=== PATIENT | female | born 2000 | race Two or more races ===

== ENCOUNTER 2020-05-27 00:48 | Emergency (ER) | payer OTHER, SELFPAY ==
[2020-05-27 00:53] VITALS: BP 111/77; PULSE 105; RESP 16; TEMP 37.2; O2SAT 98; BMI 17.1
--- NOTE | 2020-05-27 01:25 | PC.NURSE ---
Pt ambulating from the waiting room into room 6. Pt is CAOx4, speaking full sentences, states she was doing dishes when a glass shattered in her hand, cutting her 5th finger on her right hand. Approx 1 inch lac noted to finger, lac cleaned and bandaged, bleeding controlled. Awaiting primary MD richards.
--- NOTE | 2020-05-27 01:39 | ED.WOUNDLAC ---
HPI - Wound/Laceration General Chief Complaint: Wound/Laceration Stated Complaint: Lac Time Seen by Provider: 05/27/20 01:36 Source: patient Mode of arrival: ambulatory Limitations: no limitations History of Present Illness HPI narrative: Patient comes to emergency room complaining of a laceration to her 5th finger on the dorsal aspect. Patient states she was washing dishes and 1 of the glasses broke lacerating The dorsum of her pinky finger Related Data Allergies Allergy/AdvReac Type Severity Reaction Status Date / Time No Known Allergies Allergy Unverified 04/03/20 16:46 [No Known Allergies*] Review of Systems Review of Systems: Constitutional : No Weight loss, No Fever, No Chills, No Night Sweats, No Fatigue, No Malaise ENT/Mouth : No Hearing loss, No Ear Pain, No Nasal Congestion, No Sinus Pain, No Hoarseness, No sore throat, No Rhinorrhea, No Swallowing Difficulty Eyes: No Eye Pain, No Swelling, No Redness, No Foreign Body, No Discharge, No Vision Changes Cardiovascular : No Chest Pain, No SOB, No Dyspnea on Exertion, No Orthopnea, No Edema, No Palpitations Respiratory : No Cough, No Sputum, No Wheezing, No Smoke Exposure, No Dyspnea Gastrointestinal : No Nausea, No Vomiting, No Diarrhea, No Constipation, No abdominal Pain, No Hematochezia, No Melena Genitourinary : no irregular bleeding, No Dysuria, No Urinary Frequency, No Hematuria, No Urinary Incontinence, No Urgency, No Flank Pain, No Urinary Flow Changes, No Hesitancy Musculoskeletal : No joint pain, No Myalgias, No Joint Swelling Skin : laceration to the right 5th digit dorsal aspect Neuro : No Weakness, No Numbness, No Paresthesias, No Loss of Consciousness, No Dizziness, No Headache Psych : No Anxiety/Panic, No Depression, No SI/HI/AH/VH, No Social Issues, Heme/Lymph: No Bruising, No Bleeding,No Lymphadenopathy Endocrine : No Polyuria, No Polydipsia, No Temperature Intolerance [facility] Past Medical History Medical History No known health problems Social History Social History Advance Directives: No Advance Directives Information Provided: No Physical Exam Vital Signs: Vital Signs: Last Vital Signs Temp 98.9 F 05/27/20 00:53 Pulse 105 H 05/27/20 00:53 Resp 16 05/27/20 00:53 BP 111/77 05/27/20 00:53 Pulse Ox 98 05/27/20 00:53 Body Mass Index 17.1 Appearance: Alert. Oriented X3. No acute distress. Eyes: Pupils equal, round and reactive to light. ENT: Pharynx normal. Neck: Normal inspection. Neck supple. No lymph nodes noted. No crepitus CVS: Normal heart rate and rhythm. Pulses normal. Normal S1 and S2 Respiratory: No respiratory distress. Breath sounds normal. No Wheezing. No rales Abdomen: Soft and nontender. No rigidity. No distention. good BS x4 Skin: 3 cm laceration to the dorsal aspect of the right 5th digit, bleeding controlled, no foreign body seen Extremities: No lower extremity edema. No lower extremity edema. No Lacerations. No Rash. Patient is able to flex and extend all fingers in her right hand including the 5th digit Neuro: Oriented X 3. No motor deficit. No sensory deficit. Moving all extermities. No slurred speech. Course Course Course Narrative: Patient got stitches, patient tolerated well the procedure. Procedures Laceration Laceration 1: Site: other ( dorsal lateral aspect of 5th digit right hand) Side (If applicable): right Size (cm): 4 Description: linear and flap Depth: simple, single layer Local Anesthetic: lidocaine 2% Amount of anesthesia used (mL): 4 Pre-repair: wound explored and irrigated extensively Size (cm): 5-0 Number of sutures: 6 Technique: simple, interrupted Discharge Plan Discharge Clinical Impression: Laceration Patient Disposition: Home, Self-Care Instructions: Finger Laceration (ED) Additional Instructions: her stitches need to be removed in 7-10 days. You may wash your hands, keep them dry. Diffuse see any signs of infection such as redness, pus drainage, significant pain, fever, please return to the emergency room. for pain you may use ibuprofen or Tylenol. Please follow-up with your primary care physician tomorrow. If you have any worsening or new symptoms, please return to the emergency room or call 911 Stand Alone Forms: Work/School Release
[2020-05-27] MEDS: Lidocaine HCl 2 % MPF 5 ML VIAL 10 ML SUBCUT (01:48)
--- NOTE | 2020-05-27 02:01 | PC.NURSE ---
at bedside to suture lac.
[2020-05-27 02:16] VITALS: BP 104/65; PULSE 109; RESP 16; O2SAT 97
--- NOTE | 2020-05-27 02:16 | PC.NURSE ---
MD at bedside, 7 sutures applied to 5th finger on right hand. Bleeding controlled, wound bandaged. Pt aware of plan to DC home. VSS.
== END 2020-05-27 02:30 | disposition home or self-care (01) ==
PROVIDERS: Emergency Provider Emergency Medicine; PCP Nurse Practitioner Pediatrics
DX: S61.216A Laceration without foreign body of right little finger without damage to nail, initial encounter (principal); M79.644 Pain in right finger(s); W25.XXXA Contact with sharp glass, initial encounter; Y93.9 Activity, unspecified; Y92.000 Kitchen of unspecified non-institutional (private) residence as the place of occurrence of the external cause; Y99.9 Unspecified external cause status
CPT/HCPCS: 12002; 99283; 99284

== ENCOUNTER 2020-09-15 15:00 | Outpatient (RCR) | payer OTHER, SELFPAY | END 2020-10-28 11:44 | disposition other institution (70) | LOC: HO.OT 15:00 | PROVIDERS: PCP Nurse Practitioner Pediatrics; Visit Provider Nurse Practitioner Pediatrics | DX: M25.541 Pain in joints of right hand (principal) | CPT/HCPCS: 97110; 97140; 97165 ==

== ENCOUNTER 2020-11-03 08:27 | Inpatient (IN) | payer OTHER, SELFPAY ==
[2020-11-03] VITALS (7 sets, daily range): BP systolic 90–118; BP diastolic 52–74; PULSE 64–112; RESP 16–20; TEMP 36.6–37.3; O2SAT 97–99; BMI 17.1
--- NOTE | 2020-11-03 | EEG_ITS ---
This is a 16-channel digital EEG with an EKG lead. The patient is awake during the tracing. Background EEG rhythm is 10 to 14 hertz, 5 to 30 microvolt posteriorly, lower amplitude fast anteriorly. Intermittently occasional sharp wave was noted, localized to left parietal area. Photic stimulation did not produce any significant abnormality. Hyperventilation was not performed. Cardiac lead did not reveal any significant abnormality. IMPRESSION: Mildly abnormal EEG suggestive of left hemispheric irritability. MD RICKIE Pierson/BRANDNO / [id number]
--- NOTE | ~2020-11-03 | XR_ITS ---
EXAMINATION: XR CHEST CLINICAL INFORMATION: New onset of seizures. Rule out pneumonia. COMPARISON: None TECHNIQUE: Frontal view of the chest was obtained. FINDINGS: The lungs are well-expanded and clear. The heart size and pulmonary vascularity is normal. No gross bony abnormality seen. XR/XR chest 1V IMPRESSION: Unremarkable chest exam.
--- NOTE | ~2020-11-03 | CT_ITS ---
EXAMINATION: CT HEAD WITHOUT CONTRAST CLINICAL INFORMATION: New onset seizure. COMPARISON: None TECHNIQUE: Contiguous axial imaging was performed from the skull base to vertex without intravenous administration of contrast. Additional 2-D coronal and sagittal reformatted images are generated on the CT workstation and uploaded to PACS. This CT examination was performed using dose optimization techniques as appropriate, variously including the following: *Automated exposure control *Adjustment of mA and/or kV according to patient size (this includes techniques or standardized protocols for targeted exams where dose is matched to indication/reason for exam; i.e. extremities or head) *Use of iterative reconstruction technique DLP: 601 mGy-cm FINDINGS: There is no intracranial hemorrhage, hematoma, or extra-axial fluid collection. The ventricles are normal in size. There is no hydrocephalus, edema, or mass effect. The thomas-white matter differentiation appears symmetric. There is no visible acute territorial infarct or mass lesion. The calvarium appears intact. There is no pneumocephalus or orbital emphysema. The visualized sinuses and middle ears and mastoid air cells show no significant mucosal thickening. There are no air-fluid levels. CT/CT head/brain wo con IMPRESSION: Normal noncontrast CT head.
--- NOTE | ~2020-11-03 | MR_ITS ---
MR BRAIN WITHOUT AND WITH CONTRAST CLINICAL INFORMATION: Seizure. COMPARISON: Head CT performed earlier the same day. TECHNIQUE: Multiplanar, multisequence MRI of the brain was obtained before and after the intravenous administration of 4.5 mL Gadavist. FINDINGS: There is no pathologic intracranial enhancement. 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 No parenchymal signal abnormality. There is no mesial temporal sclerosis. There is no hydrocephalus, extra-axial surface collection, or herniation. There is a prominent vessel along the left tentorial leaflet that could be venous however a [id number] MRA of the head would be helpful in excluding a high flow vascular malformation in light of the patient's history of seizure. There is no acute infarct on diffusion-weighted imaging. There is no intracranial hemorrhage on the gradient recalled echo acquisition. The midline structures are normal. The cerebellar tonsils are normally positioned. The cerebellum and brainstem are normal. The craniocervical junction is normal. Osseous marrow signal intensity is homogenous. The visualized soft tissues are unremarkable. MR/MR head/brain wo/w con IMPRESSION: There is a prominent vessel along the left tentorial leaflet that could be venous however a snkk-[id number] MRA of the head would be helpful in excluding a high flow vascular malformation in light of the patient's history of seizure. Otherwise unremarkable MRI of the brain. 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
--- NOTE | ~2020-11-03 | MR_ITS ---
MR ANGIOGRAPHY BRAIN WITHOUT AND WITH IV CONTRAST CLINICAL INFORMATION: Seizure. COMPARISON: MRI brain 11/03/2020. TECHNIQUE: Noncontrast and gadolinium infusion MRA of the head are acquired, the latter following the administration of 10 mL of Gadavist intravenous contrast without complication. Vascular post-processing, including 2-dimensional and 3-dimensional reformatted images were created and reviewed on an independent workstation under concurrent physician supervision. Stenoses are graded per criteria similar to NASCET. 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 There is a suspected 1 cm arterial nidus arising from left posterior cerebral artery branches within the left occipital lobe on image 111 of series 9. Otherwise unremarkable MRA of the head. 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 Diagnostic cerebral angiogram and neuro interventional consultation are recommended for further assessment. Findings discussed with Dr. Cevallos at 4:53 PM on 11/04/2020.
--- NOTE | 2020-11-03 09:06 | ECG_ITS ---
Test Reason : SEIZURE Blood Pressure : / mmHG Vent. Rate : 091 BPM Atrial Rate : 091 BPM P-R Int : 178 ms QRS Dur : 072 ms QT Int : 344 ms P-R-T Axes : 060 079 036 degrees QTc Int : 423 ms Normal sinus rhythm Possible Left atrial enlargement Borderline ECG When compared with ECG of 23-MAY-2017 15:46, Vent. rate has increased BY 31 BPM Referred By: Roni Curtis Electronically Signed By:Darrell Marroquin
--- NOTE | 2020-11-03 09:06 | PC.NURSE ---
Pt alert and oriented, skin pink and warm. Pt reports being woken up by Mom + Sister. Has no recollection of what happened prior to getting in the ambulance. ED provider at bedside. Seizure precaution in place. Pt waiting on Mom to arrive.
--- NOTE | 2020-11-03 09:08 | ED_ITS ---
HPI - Seizure General Chief Complaint: Seizure Stated Complaint: SEIZURE,NO HX OF SZ Time Seen by Provider: 11/03/20 09:05 Source: patient, family (Mother) and EMS Mode of arrival: ambulatory Limitations: altered mental status History of Present Illness HPI Narrative: This is a 20-year-old female came in by ambulance for evaluation of new onset of seizure. History was limited from the patient feels slightly confused was still waiting for her mother to come to the emergency department to get more history. Patient felt tired and fatigued all day yesterday went to bed early, seizure activity was witnessed by her sister and mother while patient was in bed no falling. (still waiting for mother to come to the ED to obtain more detailed history). The patient declined using any drugs, declined being sick recently, declined any recent head injury. 10:45 a.m. mother at the bedside providing more history, patient was in bed on her right side, mother describes tonic-clonic contraction, patient was drooling, ruling her eyes up and not responding to her name. Tonic-clonic activity lasted for few minutes then patient became lethargic. Related Data Allergies Allergy/AdvReac Type Severity Reaction Status Date / Time No Known Allergies Allergy Unverified 04/03/20 16:46 [No Known Allergies*] Review of Systems Review of Systems: All other systems are reviewed and are negative Constitutional: Reports as per HPI and Reports no additional constitutional complaints Eyes: Reports as per HPI and Reports no additional eye complaints Reports system reviewed and no additional complaints, except as documented Cardiovascular: Reports as per HPI and Reports no additional cardiovascular complaints Respiratory: Reports as per HPI and Reports no additional respiratory complaints Gastrointestinal: Reports as per HPI and Reports no additional gastrointestinal complaints Genitourinary: Reports no additional female genitourinary complaints Musculoskeletal: Reports no additional musculoskeletal complaints Skin/Breast: Reports system reviewed and no additional complaints, except as docu Psychiatric: Reports no additional psychiatric complaints Endocrine: Reports no additional endocrine complaints Hematologic/Lymphatic: Reports no additional hematologic/lymphatic complaints Allergic/Immunologic: Reports no additional allergic/immunologic complaints Reports system reviewed and no additional complaints, except as documented and Reports Abnormal speech present [facility] Past Medical History Medical History No known health problems Social History Social History Alcohol intake: current Alcohol intake frequency: holidays/special occasions only Alcohol type: other Smoking Status: Never smoker Use of substances other than those prescribed or required for medical reasons: No Any prior treatment program specific to substance use: No Advance Directives: No Advance Directives Information Provided: No Physical Exam Vital Signs: Vital Signs: Last Vital Signs Temp 98.4 F 11/03/20 08:48 Pulse 88 11/03/20 10:55 Resp 18 11/03/20 10:55 BP 108/72 11/03/20 10:55 Pulse Ox 98 11/03/20 10:55 Body Mass Index 17.1 Vital signs have been reviewed as appeared to be correct. Blood pressure normal. Heart rate is elevated. Respiration rate normal. Temperature normal. Oxygen saturation normal. Appearance: Alert. Oriented X3. No acute distress. Head: Normal external exam. Normocephalic. Atraumatic. No Kraft signs noted. No raccoon eyes noted Eyes: PERRLA. EOMI. Conjunctiva and sclera normal. Eyelids normal. ENT: TM's Normal. Pharynx normal. Uvula midline. Moist mucous membranes. No trismus noted. No drooling noted. No muffled voice noted. Mouth exam: Right-sided tongue bite, no active bleeding. Neck: Normal inspection. Neck supple. FROM. No adenopathy. Thyroid Normal. No meningeal signs. No neck mass noted. CVS: Normal heart rate and rhythm. Heart sound normal. No murmurs noted. Pulses normal throughout. Respiratory: No respiratory distress. Painless inspiration. Breath sounds normal. No wheezes/rales/rhonchi noted. Chest nontender. No accessory muscle usage noted or decreased air movement noted. Abdomen: Soft and nontender. Bowel sounds normal in all 4 quadrants. No distention noted. No organomegaly noted. No visible injury noted. Back: No CVA tenderness. Full range of motion noted. Skin: Skin warm and dry. Normal skin color. Normal skin turgor. No rashes/lesions/lacerations noted. Extremities: No lower extremity edema. Extremities exhibit normal range of motion. Extremities nontender. Neuro: Oriented X 3. No motor deficit. No sensory deficit. Reflexes normal. Course Course Course Narrative: Assessment and plan. 20-year-old female with new onset of seizure, unremarkable CT head, unremarkable neuro exam, patient was seen and evaluated by Dr. Mata in the emergency department who recommended to admit the patient and get inpatient further workup MRI/EEG. Patient now is awake, alert and more coherent. MDM - Seizure Lab Data Attestation: I reviewed the patient's lab results. Result diagrams: 11/03/20 09:47 11/03/20 09:47 Labs: Lab Results 11/03/20 11/03/20 11/03/20 Range/Units 09:47 09:47 09:47 WBC 8.2 (4.8-10.8) X10*3/uL RBC 4.32 (4.20-5.50) X10*6/uL Hgb 12.8 (12.0-16.0) g/dl Hct 38.1 (37-47) % MCV 88.2 (80-98) fL MCH 29.6 (27.0-33.0) pg MCHC 33.6 (31.0-35.0) g/dl RDW 11.8 (11.0-16.0) % Plt Count 262 (160-400) X10*3/uL MPV 9.4 (9.4-12.3) fL Immature Gran % (Auto) 0.2 (0.0-0.4) % Neut % (Auto) 84.7 H (45-73) % Lymph % (Auto) 9.5 L (20-40) % [place] % (Auto) 5.3 (2-11) % Eos % (Auto) 0.1 (0-4) % Baso % (Auto) 0.2 (0-2) % Lymph # (Auto) 0.8 L (1.2-4.9) X10*3/uL [place] # (Auto) 0.4 (0.1-1.2) X10*3/uL Eos # (Auto) 0.0 (0.0-0.4) X10*3/uL Baso # (Auto) 0.0 (0.0-0.2) X10*3/uL Abs Immat Gran (auto) 0.02 (0.00-0.03) X10*3/uL Absolute Neuts (auto) 7.0 (2.0-8.3) X10*3/uL Absolute Nucleated RBC 0.000 (0.0-0.012) X10*3/uL Nucleated RBC % (auto) 0.0 (0.0-0.2) /100WBC Sodium 136 (135-145) mmol/L Potassium 4.1 (3.3-5.1) mmol/L Chloride 104 (96-108) mmol/L Carbon Dioxide 24 (22-29) mmol/L Anion Gap 12 (12-20) BUN 9 (9-16) mg/dL Creatinine 0.66 (0.5-1.4) mg/dL Estim Creat Clear Calc 99.4 Estimated GFR > 60 Random Glucose 96 (60-115) mg/dL Calcium 8.9 (8.4-10.2) mg/dL Total Bilirubin 1.7 H (0.0-1.0) mg/dL Direct Bilirubin 0.5 (0.0-0.5) mg/dL AST 16 (5-31) U/L ALT 11 (0-31) U/L Alkaline Phosphatase 47 (39-117) U/L Troponin I High Sens < 3.5 (<3.5-17.0) ng/L Total Protein 7.3 (6.5-8.0) g/dL Albumin 3.9 (3.5-5.0) g/dL Lipase 40 (8-78) U/L Urine Color Urine Appearance Urine pH (5.0-8.0) Ur Specific [place] (1.005-1.025) Urine Protein (NEG-TRACE) MG/DL Urine Glucose (UA) (NEG) MG/DL Urine Ketones (NEG) MG/DL Urine Blood (NEG) Urine Nitrite (NEG) Ur Leukocyte Esterase (NEG) Urine RBC (0) /HPF Urine WBC (0-4) /HPF Ur Squamous Epith Cells /LPF Urine Bacteria /LPF Urine Test (NEGATIVE) Urine Opiates Screen (Not Detect) Ur Barbiturates Screen (Not Detect) Ur Phencyclidine Scrn (Not Detect) Ur Amphetamines Screen (Not Detect) U Benzodiazepines Scrn (Not Detect) Urine Cocaine Screen (Not Detect) U Marijuana (THC) Screen (Not Detect) Ethyl Alcohol mg/dL COVID-19 (DIANE) (Negative) COVID-19 Clin Com 04/19/21 04/19/21 04/19/21 Range/Units 09:47 09:47 09:47 WBC (4.8-10.8) X10*3/uL RBC (4.20-5.50) X10*6/uL Hgb (12.0-16.0) g/dl Hct (37-47) % MCV (80-98) fL MCH (27.0-33.0) pg MCHC (31.0-35.0) g/dl RDW (11.0-16.0) % Plt Count (160-400) X10*3/uL MPV (9.4-12.3) fL Immature Gran % (Auto) (0.0-0.4) % Neut % (Auto) (45-73) % Lymph % (Auto) (20-40) % [place] % (Auto) (2-11) % Eos % (Auto) (0-4) % Baso % (Auto) (0-2) % Lymph # (Auto) (1.2-4.9) X10*3/uL [place] # (Auto) (0.1-1.2) X10*3/uL Eos # (Auto) (0.0-0.4) X10*3/uL Baso # (Auto) (0.0-0.2) X10*3/uL Abs Immat Gran (auto) (0.00-0.03) X10*3/uL Absolute Neuts (auto) (2.0-8.3) X10*3/uL Absolute Nucleated RBC (0.0-0.012) X10*3/uL Nucleated RBC % (auto) (0.0-0.2) /100WBC Sodium (135-145) mmol/L Potassium (3.3-5.1) mmol/L Chloride (96-108) mmol/L Carbon Dioxide (22-29) mmol/L Anion Gap (12-20) BUN (9-16) mg/dL Creatinine (0.5-1.4) mg/dL Estim Creat Clear Calc Estimated GFR Random Glucose (60-115) mg/dL Calcium (8.4-10.2) mg/dL Total Bilirubin (0.0-1.0) mg/dL Direct Bilirubin (0.0-0.5) mg/dL AST (5-31) U/L ALT (0-31) U/L Alkaline Phosphatase (39-117) U/L Troponin I High Sens (<3.5-17.0) ng/L Total Protein (6.5-8.0) g/dL Albumin (3.5-5.0) g/dL Lipase (8-78) U/L Urine Color YELLOW Urine Appearance HAZY Urine pH 7.0 (5.0-8.0) Ur Specific [place] 1.025 (1.005-1.025) Urine Protein NEG (NEG-TRACE) MG/DL Urine Glucose (UA) NEG (NEG) MG/DL Urine Ketones NEG (NEG) MG/DL Urine Blood 3+ H (NEG) Urine Nitrite NEG (NEG) Ur Leukocyte Esterase NEG (NEG) Urine RBC 10-14 H (0) /HPF Urine WBC 0 (0-4) /HPF Ur Squamous Epith Cells 1+ /LPF Urine Bacteria TRACE /LPF Urine Test (NEGATIVE) Urine Opiates Screen (Not Detect) Ur Barbiturates Screen (Not Detect) Ur Phencyclidine Scrn (Not Detect) Ur Amphetamines Screen (Not Detect) U Benzodiazepines Scrn (Not Detect) Urine Cocaine Screen (Not Detect) U Marijuana (THC) Screen (Not Detect) Ethyl Alcohol < 10 mg/dL COVID-19 (DIANE) Negative (Negative) COVID-19 Clin Com See Note 11/03/20 11/03/20 Range/Units 09:47 09:47 WBC (4.8-10.8) X10*3/uL RBC (4.20-5.50) X10*6/uL Hgb (12.0-16.0) g/dl Hct (37-47) % MCV (80-98) fL MCH (27.0-33.0) pg MCHC (31.0-35.0) g/dl RDW (11.0-16.0) % Plt Count (160-400) X10*3/uL MPV (9.4-12.3) fL Immature Gran % (Auto) (0.0-0.4) % Neut % (Auto) (45-73) % Lymph % (Auto) (20-40) % [place] % (Auto) (2-11) % Eos % (Auto) (0-4) % Baso % (Auto) (0-2) % Lymph # (Auto) (1.2-4.9) X10*3/uL [place] # (Auto) (0.1-1.2) X10*3/uL Eos # (Auto) (0.0-0.4) X10*3/uL Baso # (Auto) (0.0-0.2) X10*3/uL Abs Immat Gran (auto) (0.00-0.03) X10*3/uL Absolute Neuts (auto) (2.0-8.3) X10*3/uL Absolute Nucleated RBC (0.0-0.012) X10*3/uL Nucleated RBC % (auto) (0.0-0.2) /100WBC Sodium (135-145) mmol/L Potassium (3.3-5.1) mmol/L Chloride (96-108) mmol/L Carbon Dioxide (22-29) mmol/L Anion Gap (12-20) BUN (9-16) mg/dL Creatinine (0.5-1.4) mg/dL Estim Creat Clear Calc Estimated GFR Random Glucose (60-115) mg/dL Calcium (8.4-10.2) mg/dL Total Bilirubin (0.0-1.0) mg/dL Direct Bilirubin (0.0-0.5) mg/dL AST (5-31) U/L ALT (0-31) U/L Alkaline Phosphatase (39-117) U/L Troponin I High Sens (<3.5-17.0) ng/L Total Protein (6.5-8.0) g/dL Albumin (3.5-5.0) g/dL Lipase (8-78) U/L Urine Color Urine Appearance Urine pH (5.0-8.0) Ur Specific [place] (1.005-1.025) Urine Protein (NEG-TRACE) MG/DL Urine Glucose (UA) (NEG) MG/DL Urine Ketones (NEG) MG/DL Urine Blood (NEG) Urine Nitrite (NEG) Ur Leukocyte Esterase (NEG) Urine RBC (0) /HPF Urine WBC (0-4) /HPF Ur Squamous Epith Cells /LPF Urine Bacteria /LPF Urine Test NEGATIVE (NEGATIVE) Urine Opiates Screen Not Detected (Not Detect) Ur Barbiturates Screen Not Detected (Not Detect) Ur Phencyclidine Scrn Not Detected (Not Detect) Ur Amphetamines Screen Not Detected (Not Detect) U Benzodiazepines Scrn Not Detected (Not Detect) Urine Cocaine Screen Not Detected (Not Detect) U Marijuana (THC) Screen Not Detected (Not Detect) Ethyl Alcohol mg/dL COVID-19 (DIANE) (Negative) COVID-19 Clin Com Imaging Data Chest x-ray: Radiologist's impression: Unremarkable CT scan - head: Radiologist's impression: No acute pathology ECG Data Interpretation: Normal sinus rhythm at 91 beats per minute, normal axis, normal interval, no ST-T changes. Discharge Plan Discharge Clinical Impression: Seizure Patient Disposition: Admitted As Inpatient
[2020-11-03] MEDS: 0.9 % Sodium Chloride 1,000 ML 999 ML IVCONT (09:31)
--- NOTE | 2020-11-03 09:45 | PC.NURSE ---
Pt seen by ED Provider with Mom at bedside.
[2020-11-03 09:56] LABS: Basophils Percent Auto 0.2 % (0-2); Eosinophils Percent Auto 0.1 % (0-4); Hematocrit 38.1 % (37-47); Hemoglobin 12.8 g/dl (12.0-16.0); Imm Gran Abs Auto 0.02 X10*3/uL (0.00-0.03); Imm Gran Pct Auto 0.2 % (0.0-0.4); Lymphocytes Absolute Auto 0.8 X10*3/uL (1.2-4.9); Lymphocytes Percent Auto 9.5 % (20-40); MANUAL DIFF FLAG NO; Mean Corpuscular HGB Conc 33.6 g/dl (31.0-35.0); Mean Corpuscular Hemoglobin 29.6 pg (27.0-33.0); Mean Corpuscular Volume 88.2 fL (80-98); Mean Platelet Volume 9.4 fL (9.4-12.3); Monocytes Absolute Auto 0.4 X10*3/uL (0.1-1.2); Monocytes Percent Auto 5.3 % (2-11); Neutrophils Percent Auto 84.7 % (45-73); Platelet Count 262 X10*3/uL (160-400); Red Blood Count 4.32 X10*6/uL (4.20-5.50); Red Cell Distribution Width 11.8 % (11.0-16.0); White Blood Count 8.2 X10*3/uL (4.8-10.8)
[2020-11-03 10:07] LABS: Glucose Urine UA NEG (NEG); Leukocyte Esterase Urine NEG (NEG); Nitrite Urine NEG (NEG); Specific Gravity - Urine 1.025 (1.005-1.025); Urine Blood 3+ (NEG); Urine Ketones NEG (NEG); Urine Protein NEG (NEG-TRACE)
[2020-11-03 10:08] LABS: Appearance Urine HAZY; Color Urine YELLOW
[2020-11-03 10:09] LABS: UPreg QC Valid YES; Urine Pregnancy NEGATIVE (NEGATIVE)
[2020-11-03 10:17] LABS: COVID-19 Test Negative (Negative)
[2020-11-03 10:19] LABS: Bacteria Urine TRACE /LPF; Squamous Epithelial Cell Urine 1+ /LPF; WBC Urine 0 /HPF (0-4)
[2020-11-03 10:31] LABS: Ethanol < 10 mg/dL
[2020-11-03 10:34] LABS: Amphetamine Screen Urine Not Detected (Not Detect); Barbiturates, Urine Not Detected (Not Detect); Benzodiazepines Screen Urine Not Detected (Not Detect); Cannabinoid Screen Urine Not Detected (Not Detect); Cocaine Screen Urine Not Detected (Not Detect); Opiate Screen Urine Not Detected (Not Detect); Phencyclidine Screen Urine Not Detected (Not Detect)
[2020-11-03 10:35] LABS: Alanine Aminotransferase 11 U/L (0-31); Albumin Level 3.9 g/dL (3.5-5.0); Alkaline Phosphatase 47 U/L (39-117); Anion Gap 12 (12-20); Aspartate Amino Transferase 16 U/L (5-31); Bilirubin Direct 0.5 mg/dL (0.0-0.5); Bilirubin Total 1.7 mg/dL (0.0-1.0); Blood Urea Nitrogen 9 mg/dL (9-16); Calcium 8.9 mg/dL (8.4-10.2); Carbon Dioxide 24 mmol/L (22-29); Chloride 104 mmol/L (96-108); Creatinine Clr Calc Pharmacy 99.4; Estimated Glomerular Filt Rate > 60; Glucose Random 96 mg/dL (60-115); Lipase 40 U/L (8-78); Potassium 4.1 mmol/L (3.3-5.1); Sodium 136 mmol/L (135-145); Total Protein 7.3 g/dL (6.5-8.0)
--- NOTE | 2020-11-03 10:37 | PC.NURSE ---
off unit for CT scan at this time
[2020-11-03 10:41] LABS: Troponin-I High Sensitivity < 3.5 ng/L (<3.5-17.0)
[2020-11-03] MEDS: levETIRAcetam 500 MG TABLET PO (10:53)
--- NOTE | 2020-11-03 11:44 | PC.NURSE ---
Neuro at bedside for eval. Plan for MRI and admission. No seizure activity since arrival to ED
--- NOTE | 2020-11-03 11:56 | PM.NEUROCN ---
History of Present Illness Data of Consult Service Date: 11/03/20 Primary Care Provider: Karina Reis NP 20 years old woman came to hospital after 1st seizure of her life. She denied any past medical history. Her father was on bedside. There was no family history of seizure disorder. She denied any drug use or start of any new medication. Early this morning she was noted to be convulsing in her bed. She had a tongue bite and later was confused and embolus was called and she was brought here. She was still confused when she arrived in hospital. There was no sign of any physical injury other than tongue bite. Review of Systems Review of Systems: No recent cold or flu-like illness trauma or exposure to any new medicine. [facility] Past Medical History Medical History No known health problems Social History Social History Alcohol intake: current Alcohol intake frequency: holidays/special occasions only Alcohol type: other Smoking Status: Never smoker Use of substances other than those prescribed or required for medical reasons: No Any prior treatment program specific to substance use: No Advance Directives: No Advance Directives Information Provided: No Meds Allergies Allergy/AdvReac Type Severity Reaction Status Date / Time No Known Allergies Allergy Unverified 04/03/20 16:46 [No Known Allergies*] Physical Exam Vital Signs: Vital Signs: Last Vital Signs Temp 98.4 F 11/03/20 08:48 Pulse 88 11/03/20 10:55 Resp 18 11/03/20 10:55 BP 108/72 11/03/20 10:55 Pulse Ox 98 11/03/20 10:55 Body Mass Index 17.1 She was alert and awake with slightly wake affect. She was able to answer questions but hesitated like she did not know. Her father was there to help. She was following simple commands. Pupils were equal and reactive to light and extraocular muscles were intact. Visual mendes were full to confrontation. Face was symmetrical. Tongue was midline. Right side of the tongue had a bruise. There was no obvious focal weakness. Deep tendon reflexes are 1+ with equivocal plantars. Results Labs CBC & Chem 7: 11/03/20 09:47 11/03/20 09:47 Labs: Short CBC 11/03/20 Range/Units 09:47 WBC 8.2 (4.8-10.8) X10*3/uL Hgb 12.8 (12.0-16.0) g/dl Hct 38.1 (37-47) % Plt Count 262 (160-400) X10*3/uL BMP 11/03/20 09:47 Sodium 136 Potassium 4.1 Chloride 104 Carbon Dioxide 24 BUN 9 Creatinine 0.66 Calcium 8.9 Liver Function 11/03/20 Range/Units 09:47 Total Bilirubin 1.7 H (0.0-1.0) mg/dL Direct Bilirubin 0.5 (0.0-0.5) mg/dL AST 16 (5-31) U/L ALT 11 (0-31) U/L Alkaline Phosphatase 47 (39-117) U/L Albumin 3.9 (3.5-5.0) g/dL Urine 11/03/20 Range/Units 09:47 Urine Color YELLOW Urine Appearance HAZY Urine pH 7.0 (5.0-8.0) Ur Specific [place] 1.025 (1.005-1.025) Urine Protein NEG (NEG-TRACE) MG/DL Urine Glucose (UA) NEG (NEG) MG/DL Her laboratories were unremarkable. Head CT did not reveal any significant abnormality. Chest x-ray was normal. Assessment and Plan (1) Seizure: Problem details: 20 years old woman with 1st unprovoked seizure during sleep. Seizure probably was of generalized type resulting in generalized shaking a tongue bite and postictal confusion. Her examination, other than mild fogginess of mind, at this time was normal. There was no sign of infection. Status: Acute My recommendation at this time is to obtain an MRI of brain with and without contrast and an electroencephalogram. She should be advised to not drive and not be involved in an activity that could put her [place] life in danger such as swimming alone or sitting in a soaking tub alone. As far as treatment is concerned, that this seen can be made after looking at her EEG and MRI. She should also have an adult primary care physician as she has been following up irritation.
--- NOTE | 2020-11-03 13:10 | HP_ITS ---
DATE OF SERVICE: 11/03/2020 CHIEF COMPLAINT: Witnessed seizure. HISTORY OF PRESENTING ILLNESS: This is a 20-year-old female patient, came to [facility] after she was witnessed to have a seizure by family member. Information is obtained from the patient's mother by the ER physician that the patient was resting in bed and noticed to have tonic-clonic contraction with drooling, eyes rolled up. Symptoms lasted for a few minutes. After that, the patient became lethargic. Incident happened at 10:45 at a.m. In the emergency room, the patient was noticed to be confused on arrival. Later became more awake, alert, and able to provide detailed history. As per the patient, she has history of memory issues in the past, which she described as loss of memory/complete blackout episodes on and off for last 1 year that lasts for 1 minute at a time, for which she was evaluated by a neurologist in [place], underwent an MRI study, but never went back for followup, therefore not aware of results. Does not remember where the MRI was obtained. Since yesterday 1 p.m., the patient had 6 episodes of memory gaps, so she was mostly in bed. She had similar feeling of loss of vision with complete blackout, not aware of what she is doing. Symptoms would last 1 minute and she would manage to snap out of these episodes, but never had seizures in the past. She denies any head trauma or injury. She has had good appetite. No recent bout of fever, chills, or infection. In the emergency room, the patient's CAT scan of the head and chest x-ray is unremarkable. U-tox is negative. Alcohol is negative. Blood sugar 96. UA showed 3+ blood, otherwise no evidence of infection. The patient is now being admitted to [facility] with new onset of seizure disorder with history of memory issues of 1 year duration. PAST MEDICAL HISTORY: Benign. MEDICATIONS: The patient takes control pills to regularize her periods. ALLERGIES: SHE HAS NO KNOWN DRUG ALLERGIES. SOCIAL HISTORY: She studies at [employer] . She has 3 younger sisters. Denies history of smoking or illicit drug use. FAMILY HISTORY: Parents are alive and healthy. Mother has hypertension. REVIEW OF SYSTEMS: GEAR LAPPER: The patient denies any headache, lightheadedness, or dizziness. CVS: No chest pain or palpitation. RESPIRATORY: No cough or sputum production. GI: No nausea. No vomiting or diarrhea. No weight loss. MUSCULOSKELETAL: Complaining of right leg pain after being in emergency room bed. All other systems are reviewed and negative. PHYSICAL EXAMINATION: GENERAL: Healthy-appearing 20-year-old female, resting comfortably in bed. VITAL SIGNS: BP 108/72 with a pulse of 88, respiratory rate 18, O2 saturation 98% on room air. HEENT: Pupils are equal, round, and reactive to light and accommodation. NECK: Supple. LUNGS: Clear to auscultation bilaterally. HEART: Regular rate and rhythm. No murmurs appreciated. ABDOMEN: Soft, nontender. Bowel sounds audible. EXTREMITIES: Without clubbing, cyanosis, or edema. Good peripheral pulses. NEURO: Nonfocal. SKIN: No rash. PSYCHIATRIC: Appropriate affect. LABORATORY DATA: As mentioned. UA; 3+ blood, 10 to 14 rbc's, otherwise trace bacteria and no wbc's. Sodium 136, BUN 9, creatinine 0.66, blood sugar 96. Urine toxicology negative. Alcohol level less than 10. COVID-19 negative. Unremarkable CBC. Chest x-ray and head CT, no acute abnormality. ASSESSMENT AND PLAN: This is a 20-year-old female patient with past medical history significant for issues of memory loss, blackouts of 1 year duration, symptom lasted only for 1 minute, presented today with a witnessed seizure. 1. New-onset seizure. The patient is being admitted to medical floor for close followup and further workup. The patient evaluated in the emergency room by Dr. Mata. He recommended an MRI study with and without contrast and EEG that has been ordered. We will continue seizure precautions, close neuro checks. The patient received IV Keppra 500 mg, further seizure treatment as per Neurology after above studies are obtained. 2. Hematuria. The patient noticed to have 3+ blood in the urine, will Recommend outpatient followup with PCP with repeat urine studies. 3. Code status: Full code. 4. Deep vein thrombosis prophylaxis. The patient is at low risk for DVT. MD JANNET Doss/BRANDON / [id number] MTDD
--- NOTE | 2020-11-03 15:13 | PC.NURSE ---
Pt to MRI then will be transported to floor. Report given to med surg
[2020-11-03] MEDS: Acetaminophen 325 MG TABLET 650 MG PO (16:57)
[2020-11-03] MEDS: 0.9 % Sodium Chloride Flush 3 ML SYRINGE IVFLUSH (16:58)
[2020-11-04] MEDS: 0.9 % Sodium Chloride Flush 3 ML SYRINGE IVFLUSH ×2 (01:27→07:52)
[2020-11-04 03:36] VITALS: BP 104/69; PULSE 70; RESP 19; TEMP 36.4; O2SAT 97
[2020-11-04 07:57] VITALS: BP 99/69; PULSE 65; RESP 16; TEMP 36.7; O2SAT 99
[2020-11-04] MEDS: Acetaminophen 325 MG TABLET 650 MG PO (10:15)
[2020-11-04 11:38] VITALS: BP 103/67; PULSE 79; RESP 17; TEMP 36.5; O2SAT 98
[2020-11-04 11:54] VITALS: BMI 17.1
--- NOTE | 2020-11-04 12:42 | PM.DS ---
DS: Providers Provider Date of Service: 11/04/20 Date of admission: 11/03/20 12:08 Primary care physician: Karina Reis, GUILLERMINA Consults: 11/03/20 10:57 Consult to Neurology Stat Consulting Provider: Toney Mata Reason for consultation: New onset of seizure Has provider been notified: Yes DS: Diagnosis Discharge Diagnosis (1) Seizure: Status: Acute DS: Medications Discharge Medications Home Medications: Home Medications Medication Instructions Recorded Confirmed norethindrone-e.estradiol-iron 1 tab PO DAILY 11/03/20 11/03/20 [ (28)] DS: Summary Hospital Course Hospital Course: CHIEF COMPLAINT: Witnessed seizure. HISTORY OF PRESENTING ILLNESS: This is a 20-year-old female patient, came to [facility] after she was witnessed to have a seizure by family member. Information is obtained from the patient's mother by the ER physician that the patient was resting in bed and noticed to have tonic-clonic contraction with drooling, eyes rolled up. Symptoms lasted for a few minutes. After that, the patient became lethargic. Incident happened at 10:45 at a.m. In the emergency room, the patient was noticed to be confused on arrival. Later became more awake, alert, and able to provide detailed history. As per the patient, she has history of memory issues in the past, which she described as loss of memory/complete blackout episodes on and off for last 1 year that lasts for 1 minute at a time, for which she was evaluated by a neurologist in [place], underwent an MRI study, but never went back for followup, therefore not aware of results. Does not remember where the MRI was obtained. Since yesterday 1 p.m., the patient had 6 episodes of memory gaps, so she was mostly in bed. She had similar feeling of loss of vision with complete blackout, not aware of what she is doing. Symptoms would last 1 minute and she would manage to snap out of these episodes, but never had seizures in the past. She denies any head trauma or injury. She has had good appetite. No recent bout of fever, chills, or infection. In the emergency room, the patient's CAT scan of the head and chest x-ray is unremarkable. U-tox is negative. Alcohol is negative. Blood sugar 96. UA showed 3+ blood, otherwise no evidence of infection. The patient is now being admitted to [facility] with new onset of seizure disorder with history of memory issues of 1 year duration. Hospital course: Patient was admitted for work up which has included CT of head. MRI, MRA/MRV maging findings are suggestive of a left occipital AVM with enlarged left ACTUARY MANAGER branches extending towards a suspected left occipital lobe arterial nidus and a large arterialized draining vein along the left tentorial leaflet that drains into the vein of Bradley. Diagnostic cerebral angiogram and neuro interventional consultation are recommended for further assessment. EEG is abnormal. Dr. Mata recommend Keppra [address] bid [address]. She says she doesn't drive any way. She will follow up with Neurology and need adult PCP. She is also advised not to operate heavy machinery and swim without an attendant and avoid alcohol. Dr will follow on MRA/MRVA finding and arrange to next step, likely angiogram on out Time Spent with Patient Time attestation: Total time spent providing and/or coordinating discharge services: Discharge coordination time: Greater than 30 minutes Physical Exam Vital Signs: Vital Signs: Last Vital Signs Temp 97.7 F 11/04/20 11:38 Pulse 79 11/04/20 11:38 Resp 17 11/04/20 11:38 BP 103/67 11/04/20 11:38 Pulse Ox 98 11/04/20 11:38 Body Mass Index 17.1 General: AO X 3, no acute distress Resp: CTA bilateral CVS: S1,S2,RRR GI: +BS, NT, no distention Skin: No rash Neuro: motor grossly intact Psych: appropriate affect Discharge Plan Discharge Anticipated Discharge Date/Time: 11/04/20 12:31 Patient Disposition: Home, Self-Care Discharge Diagnosis: Seizure Referrals: Karina Reis NP [Primary Care Provider] - 1 Week Discharge Medications: New levetiracetam [Keppra] 250 mg tablet 250 mg PO BID Qty: 60 RF: 1 Continued norethindrone-e.estradiol-iron [ (28)] 1.5 mg-30 mcg (21)/75 mg (7) tablet 1 tab PO DAILY RF: 0 Discharge Orders: Discharge Order (Routine); Ordered 04/20/21 Ordered By: Nitesh Cevallos Diet: advance to usual diet Activity on Discharge: As tolerated Stand Alone Forms: Patient Portal Discharge page Care Plan Goals: control of seizures Health Concerns: seizures Plan of Treatment: Take Keppra as 250 as recommended, follow up with your primary care docotor, follow up with Doctor Adolfo, should get adult medicine primary care Doctor Assessment: seizure
[2020-11-04] MEDS: levETIRAcetam 250 MG TABLET PO (13:09)
[2020-11-04 15:23] VITALS: BP 112/74; PULSE 70; RESP 15; TEMP 36.8; O2SAT 99
--- NOTE | 2020-11-04 16:41 | MHC.CM.PN ---
nurse reproductive healthcare assistant note electronic medical record reviewed along with case discussed with staff nurse and the hospitalist met with PATIENT AND HER PARENTS SHE IS ACTIVE EMPLOYED FIULL TIME AND LIVES WITH HER FAMILY , SHE DOES NOT DRIVE HER PARENT PROVIDE TRANSP[ORTSTION AT DISCHARGE AND TO HER WORK . SHE HAS NO VNA OR DME SERVCIES , EDUCATED ABOUT THE IMPORTANCE OF HAVING A HEALTH CARE PROXY . THIS IS PAtient s first seixzure. diuscharge plan home with no servcies today
== END 2020-11-04 18:42 | disposition home or self-care (01) | DRG 58 ==
LOC: HO.ED 11:18 → HO.EDOVER 12:32 → HO.S3 14:14
PROVIDERS: Admitting Provider Hospitalist; Emergency Provider Emergency Medicine; PCP Nurse Practitioner Pediatrics; Visit Provider Internal Medicine
DX: Q28.3 Other malformations of cerebral vessels (principal); R56.9 Unspecified convulsions; R31.9 Hematuria, unspecified; Z20.822 Contact with and (suspected) exposure to COVID-19; Z79.899 Other long term (current) drug therapy
CPT/HCPCS: 36415; 70450; 70546; 70553; 71045; 80048; 80076; 80307; 80320; 81001; 81003; 81025; 83690; 84484; 85025; 87635; 93005; 95816; 99218; 99285; A9585

== ENCOUNTER 2022-07-02 10:38 | Emergency (ER) | payer MEDICAID, SELFPAY ==
--- NOTE | ~2022-07-02 | MR_ITS ---
EXAMINATION: MRI OF THE BRAIN WITHOUT CONTRAST CLINICAL INFORMATION: Left-sided weakness. COMPARISON: CT of the head and neck area 07/02/2022. MRI scan of the brain and MRA of the head 11/03/2020 and 11/04/2020 respectively. TECHNIQUE: MRI of the brain was obtained using routine sequences without contrast. FINDINGS: No diffusion abnormalities are identified to suggest an acute or subacute infarct. No mass effect or midline shift is seen. The ventricles and sulci are normal in size. Brain parenchymal signal is unremarkable. There is mild loss of CSF suppression on the FLAIR (T2) images in the high sulci in the centra semiovale bilaterally (image 22/26, sequence 5). This is likely artifact, as no abnormal enhancement was demonstrated in these areas on the post contrast scan of the head. However a leptomeningeal process cannot be excluded. Prominent vessels are partially visualized in the inferior left occipital lobe. No extra-axial fluid collections are seen. The brainstem appears normal No pathologic magnetic susceptibility artifact is identified on the gradient refocused acquisition. The cerebellar tonsil tips extend to 3.5 mm below the level of foramen magnum, but have normal contours. The major intracranial flow-voids at the level of the [place] are preserved. The dural venous sinus flow-voids are maintained. There is mild prominence of the palatine tonsils which is nonspecific. The mastoid air cells and paranasal sinuses are well-aerated. MR/MR head/brain wo con IMPRESSION: 1. There are no acute infarcts or infarcts, and no masses are demonstrated. 2. There is equivocal loss of CSF suppression on the FLAIR images as described above which is likely artifact, but a leptomeningeal process cannot be excluded. This could be reevaluated with post contrast MRI scan of the brain. 3. The cerebellar tonsillar tips are low lying, but have normal contours.
--- NOTE | ~2022-07-02 | CT_ITS ---
EXAMINATION: CT angio head neck CLINICAL INFORMATION: Headache. History of arteriovenous malformation. COMPARISON: MR angiogram of the head 11/04/2020. Brain MRI 11/03/2020. TECHNIQUE: [employer] images were obtained. A CT angiogram of the head and neck was performed in the arterial phase after the intravenous administration of 70 mL Omnipaque 350. Pre and delayed postcontrast images of the head were also obtained. MIP reconstructions were generated in multiple orientations at the acquisition workstation. Multiple three-dimensional surface rendered images and maximum intensity projection images were generated on a dedicated 3-D lab workstation. Arterial stenoses are measured in accordance with NASCET criteria or similar method if applicable. This CT examination was performed using dose optimization techniques as appropriate, including one or more of the following: Automated exposure control, iterative reconstruction, and adjustment of technique factors (mA and/or kVp) according to patient size (this includes techniques or standardized protocols for targeted exams where dose is matched to indication/reason for exam). Fleischner Society criteria for the followup of incidental pulmonary nodules was implemented if appropriate. Total exam dose-length product 2046 mGy-cm FINDINGS: Head: There is no acute intracranial hemorrhage or abnormal extra-axial collection. No intracranial mass effect midline shift. Lateral and third ventricles are normal. No hydrocephalus. Chin-white matter differentiation is preserved and there is no evidence of acute territorial infarct. The calvarium and skull base are intact. Mastoid air cells and middle ear cavities are well aerated. No active paranasal sinus disease. CT angiogram neck: The aortic arch apex is normal. Origins of the major aortic branches are widely patent. Common carotid arteries and carotid bifurcations are normal. No stenosis of the extracranial internal carotid arteries. The cervical segments of the vertebral arteries are patent. CT angiogram head: Again there is an arteriovenous malformation with a relatively compact vascular nidus located along the undersurface of the left occipital lobe best visualized on axial image 306 of 1121 series 6 measuring approximately 1 cm in diameter and there is early opacification of a large adjoining draining vein that ultimately empties into the vein of [place] at its junction with the left internal cerebral vein best visualized on axial image 254 of the same series. Otherwise unremarkable intracranial arterial anatomy. Specifically the anterior, middle, and posterior cerebral artery complexes are normal. Intracranial internal carotid arteries are normal and the vertebrobasilar system is normal. Other: Soft tissues of the neck including the thyroid gland are normal. Visualized lung apices are clear. There is no acute osseous finding. CT/CT angio head neck IMPRESSION: There is no acute intracranial finding. Specifically no evidence of acute territorial infarct or hemorrhage. 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 Otherwise unremarkable arterial anatomy within the head and neck.
[2022-07-02 10:44] VITALS: BP 128/81; PULSE 106; RESP 20; TEMP 37; O2SAT 98; BMI 17.3
--- NOTE | 2022-07-02 10:50 | ED.GENADULT ---
HPI - General Adult General Chief complaint: General Medical Stated complaint: Seizure Last Night Headache Time Seen by Provider: 07/02/22 10:48 Source: patient and family Mode of arrival: ambulatory Limitations: no limitations History of Present Illness HPI narrative: 22-year-old female with history of seizure disorder diagnosed October 2020 on lamotrigine who presents to the ER for evaluation of left-sided weakness and numbness after a seizure last night. home with her family, she has room with her sister. Her sister reports that around 02:00 she had a minor seizure that involved her with generalized shaking for a about a minute or so. Patient never woke up and slept the rest of the night. There was no fecal or urinary incontinence. No injuries. The patient woke up this morning she states she had pain and weakness on the entire left side of her body including her head extremities and trunk. She states she has a burning-type pain in all her muscles like she over exerted herself, but the pain is only on the left side of the body. She says it hurt to even hold her phone to text message some body. She denies any symptoms on the right side. MD complaint: Left-sided weakness and pain after seizure last night Onset (ago): hour(s) Location: head, face, chest, left, upper extremity and lower extremity Radiation: non-radiation Severity: severe Severity scale (1-10): 8 Quality: aching Pain Consistency: constant Relieving factors: none Exacerbating factors: movement Associated symptoms: headaches and weakness Treatments prior to arrival: none Related Data Home Medications Medication Instructions Recorded Confirmed norethindrone 1.5 mg-ethinyl 1 tab PO DAILY 11/03/20 11/03/20 estradiol 30 mcg(21)/iron 75 mg(7) tablet ( FE .12/14 (28)) Previous Rx's Medication Instructions Recorded levetiracetam 250 mg tablet 250 mg PO BID #60 tabs 11/04/20 (Keppra) Allergies Allergy/AdvReac Type Severity Reaction Status Date / Time No Known Allergies Allergy Unverified 04/03/20 16:46 [No Known Allergies*] Review of Systems Review of Systems: Constitutional: No Fever, No Chills ENT/Mouth: No sore throat, No Rhinorrhea, No Swallowing Difficulty Eyes: No Eye Pain, No vision changes Cardiovascular: No Chest Pain, No SOB, No Orthopnea, No Edema Respiratory: No Cough, No Sputum, No Wheezing, No dyspnea Gastrointestinal: No Nausea, No Vomiting, No Diarrhea, No abdominal Pain Genitourinary: No Dysuria, No Urinary Frequency, No Hematuria Musculoskeletal: No joint pain, +Myalgias Skin: No Skin Lesions, No rash Neuro: + Weakness, No Numbness, No Dizziness, + Headache Psych: No Anxiety/Panic, No Depression Heme/Lymph: No Bruising, No Lymphadenopathy Endocrine: No Polyuria, No Polydipsia [facility] Past Medical History Medical History No known health problems Social History Social History Household Members: Family Housing: House Do you presently have visiting nurse or other home services: No Alcohol intake: current Alcohol intake frequency: holidays/special occasions only Alcohol type: other Advance Directives: Yes Advance Directives Information Provided: Yes Advance Directives on File: No service: No Current occupational status: employed Physical Exam ED Vital Signs: Vital Signs - 24 hr 07/02/22 10:44 07/02/22 13:31 07/02/22 16:28 Temperature 98.6 F Pulse Rate 106 H 83 92 Respiratory Rate 20 16 18 Blood Pressure 128/81 107/70 100/59 L Pulse Oximetry 98 99 98 Oxygen Delivery Method Room Air Room Air Room Air BMI result Body Mass Index 17.3 Appearance: Alert. Oriented X3. No acute distress. Eyes: Pupils equal, round and reactive to light. ENT: Pharynx normal. Neck: Normal inspection. Neck supple. CVS: Normal heart rate and rhythm. Pulses normal. Respiratory: No respiratory distress. Breath sounds normal. Abdomen: Soft and nontender. +BS x4 Skin: Skin warm and dry. Normal skin color. Normal skin turgor. No rashes. Extremities: No lower extremity edema. all 4 extremities are soft and compressible Neuro: Oriented X 3. normal speech and cognition. Cranial nerves 2-12 intact. There is 3/5 diffuse weakness on the left side of the body with 5/5 strength on the right. Course Course Course Narrative: 22-year-old female presenting to the ER with weakness and pain in her left side after seizure last night. She has been compliant with her lamotrigine. On examination she does have 3/5 weakness on her left upper and lower extremities. Otherwise nonfocal. Will get CT scan given headache with report of AVM, doubt ICH. Will get lab workup as well. Will hydrate with IV fluids and give Tylenol for pain. Will reassess. Reevaluation(s) Reevaluation #1: Weakness persists. Will get MRI for further evaluation, case discussed with Dr. Bernard. Reevaluation #2: Slowly improving weakness, muscle pain persists only on the left side but is slightly improved after Motrin and Toradol. At this time comfortable discharge home with content to continue her lamotrigine, stay hydrated and rest this week and follow up with her neurologist next week. Medications Administered Discontinued Medications Generic Name Dose Route Start Last Admin Trade Name Freq PRN Reason Stop Dose Admin Acetaminophen 975 mg 07/02/22 11:08 07/02/22 12:41 Acetaminophen 325 Mg Tablet PO 07/02/22 11:09 975 mg ONCE ONE Administration Sodium Chloride 1,000 mls @ 999 mls/hr 07/02/22 11:15 07/02/22 14:55 Ns IV 07/02/22 12:15 Infused .Q1H1M [place] Infusion Iohexol 70 ml 07/02/22 12:51 07/02/22 12:52 Iohexol 350 Mg/Ml 100 Ml Infus..Btl IV 07/02/22 12:52 70 ml ONCE ONE Administration Ketorolac Tromethamine 15 mg 07/02/22 15:07 07/02/22 16:29 Ketorolac Tromethamine 15 Mg/Ml Vial IVPUSH 07/02/22 15:08 15 mg ONCE ONE Administration Medical Decision Making Lab Data Result Diagrams: 07/02/22 11:32 07/02/22 11:32 Labs: Lab Results 07/02/22 07/02/22 07/02/22 Range/Units 11:32 11:32 14:04 WBC 6.4 (4.8-10.8) X10*3/uL RBC 4.20 (4.20-5.50) X10*6/uL Hgb 12.0 (12.0-16.0) g/dl Hct 36.1 L (37.0-47.0) % MCV 86.0 (80.0-98.0) fL MCH 28.6 (27.0-33.0) pg MCHC 33.2 (31.0-35.0) g/dl RDW 12.4 (11.0-16.0) % Plt Count 226 (160-400) X10*3/uL MPV 9.2 L (9.4-12.3) fL Immature Gran % (Auto) 0.2 (0.0-0.4) % Neut % (Auto) 72.0 (45-73) % Lymph % (Auto) 18.8 L (20-40) % [place] % (Auto) 7.9 (2-11) % Eos % (Auto) 0.8 (0-4) % Baso % (Auto) 0.3 (0-2) % Lymph # (Auto) 1.2 (1.2-4.9) X10*3/uL [place] # (Auto) 0.5 (0.1-1.2) X10*3/uL Eos # (Auto) 0.1 (0.0-0.4) X10*3/uL Baso # (Auto) 0.0 (0.0-0.2) X10*3/uL Abs Immat Gran (auto) 0.01 (0.00-0.03) X10*3/uL Absolute Neuts (auto) 4.6 (2.0-8.3) x10*3/uL Absolute Nucleated RBC 0.000 (0.0-0.012) X10*3/uL Nucleated RBC % (auto) 0.0 (0.0-0.2) /100WBC Sodium 138 (135-145) mmol/L Potassium 3.8 (3.3-5.1) mmol/L Chloride 106 (96-108) mmol/L Carbon Dioxide 25 (22-29) mmol/L Anion Gap 11 L (12-20) BUN 9 (9-16) mg/dL Creatinine 0.68 (0.5-1.4) mg/dL Estim Creat Clear Calc 95.8 Estimated GFR > 60 Random Glucose 90 (60-115) mg/dL Calcium 8.8 (8.4-10.2) mg/dL Magnesium 1.8 (1.6-2.6) mg/dL Total Bilirubin 2.1 H (0.0-1.0) mg/dL Direct Bilirubin 0.6 H (0.0-0.5) mg/dL AST 15 (5-31) U/L ALT 7 (0-31) U/L Alkaline Phosphatase 68 (39-117) U/L Total Protein 6.8 (6.5-8.0) g/dL Albumin 3.9 (3.5-5.0) g/dL Urine Color Yellow Urine Appearance Clear Urine pH 8.0 (5.0-9.0) Ur Specific [place] >= 1.030 H (1.005-1.025) Urine Protein Negative (Neg-Trace) mg/dL Urine Glucose (UA) Negative (Negative) mg/dL Urine Ketones Negative (Negative) mg/dL Urine Blood Negative (Negative) Urine Nitrite Negative (Negative) Ur Leukocyte Esterase Negative (Negative) Urine Opiates Screen (Not Detect) Urine Fentanyl Screen (Not Detect) Ur Barbiturates Screen (Not Detect) Ur Phencyclidine Scrn (Not Detect) Ur Amphetamines Screen (Not Detect) U Benzodiazepines Scrn (Not Detect) Urine Cocaine Screen (Not Detect) U Marijuana (THC) Screen (Not Detect) Ethyl Alcohol < 10 mg/dL 07/02/22 Range/Units 14:04 WBC (4.8-10.8) X10*3/uL RBC (4.20-5.50) X10*6/uL Hgb (12.0-16.0) g/dl Hct (37.0-47.0) % MCV (80.0-98.0) fL MCH (27.0-33.0) pg MCHC (31.0-35.0) g/dl RDW (11.0-16.0) % Plt Count (160-400) X10*3/uL MPV (9.4-12.3) fL Immature Gran % (Auto) (0.0-0.4) % Neut % (Auto) (45-73) % Lymph % (Auto) (20-40) % [place] % (Auto) (2-11) % Eos % (Auto) (0-4) % Baso % (Auto) (0-2) % Lymph # (Auto) (1.2-4.9) X10*3/uL [place] # (Auto) (0.1-1.2) X10*3/uL Eos # (Auto) (0.0-0.4) X10*3/uL Baso # (Auto) (0.0-0.2) X10*3/uL Abs Immat Gran (auto) (0.00-0.03) X10*3/uL Absolute Neuts (auto) (2.0-8.3) x10*3/uL Absolute Nucleated RBC (0.0-0.012) X10*3/uL Nucleated RBC % (auto) (0.0-0.2) /100WBC Sodium (135-145) mmol/L Potassium (3.3-5.1) mmol/L Chloride (96-108) mmol/L Carbon Dioxide (22-29) mmol/L Anion Gap (12-20) BUN (9-16) mg/dL Creatinine (0.5-1.4) mg/dL Estim Creat Clear Calc Estimated GFR Random Glucose (60-115) mg/dL Calcium (8.4-10.2) mg/dL Magnesium (1.6-2.6) mg/dL Total Bilirubin (0.0-1.0) mg/dL Direct Bilirubin (0.0-0.5) mg/dL AST (5-31) U/L ALT (0-31) U/L Alkaline Phosphatase (39-117) U/L Total Protein (6.5-8.0) g/dL Albumin (3.5-5.0) g/dL Urine Color Urine Appearance Urine pH (5.0-9.0) Ur Specific [place] (1.005-1.025) Urine Protein (Neg-Trace) mg/dL Urine Glucose (UA) (Negative) mg/dL Urine Ketones (Negative) mg/dL Urine Blood (Negative) Urine Nitrite (Negative) Ur Leukocyte Esterase (Negative) Urine Opiates Screen Not Detected (Not Detect) Urine Fentanyl Screen Not Detected (Not Detect) Ur Barbiturates Screen Not Detected (Not Detect) Ur Phencyclidine Scrn Not Detected (Not Detect) Ur Amphetamines Screen Not Detected (Not Detect) U Benzodiazepines Scrn Not Detected (Not Detect) Urine Cocaine Screen Not Detected (Not Detect) U Marijuana (THC) Screen Not Detected (Not Detect) Ethyl Alcohol mg/dL Discharge Plan Discharge Clinical Impression: Seizure Patient Disposition: Home, Self-Care Instructions: Recurrent Seizures in Adults (ED) Additional Instructions: Your MRI did not show any acute abnormalities. Your lab work was were unremarkable. Your pain & weakness should improve with time. Recommend following up with your neurologist early next week. Make sure you rest over the weekend and drink plenty of fluids. If you develop new or worsening symptoms call 911 or come back to the ER for further evaluation. Prescriptions: No Action norethindrone-e.estradiol-iron [June FE .5/30 (28)] 1.5 mg-30 mcg (21)/75 mg (7) tablet 1 tab PO DAILY levetiracetam [Keppra] 250 mg tablet 250 mg PO BID Qty: 60 1RF
[2022-07-02 11:36] LABS: MANUAL DIFF FLAG NO
[2022-07-02 11:40] LABS: Basophils Percent Auto 0.3 % (0-2); Eosinophils Absolute Auto 0.1 X10*3/uL (0.0-0.4); Eosinophils Percent Auto 0.8 % (0-4); Hematocrit 36.1 % (37.0-47.0); Imm Gran Abs Auto 0.01 X10*3/uL (0.00-0.03); Imm Gran Pct Auto 0.2 % (0.0-0.4); Lymphocytes Absolute Auto 1.2 X10*3/uL (1.2-4.9); Lymphocytes Percent Auto 18.8 % (20-40); Mean Corpuscular HGB Conc 33.2 g/dl (31.0-35.0); Mean Corpuscular Hemoglobin 28.6 pg (27.0-33.0); Mean Platelet Volume 9.2 fL (9.4-12.3); Monocytes Absolute Auto 0.5 X10*3/uL (0.1-1.2); Monocytes Percent Auto 7.9 % (2-11); Neutrophils Absolute Auto 4.6 x10*3/uL (2.0-8.3); Platelet Count 226 X10*3/uL (160-400); Red Cell Distribution Width 12.4 % (11.0-16.0); White Blood Count 6.4 X10*3/uL (4.8-10.8)
[2022-07-02 12:07] LABS: Alanine Aminotransferase 7 U/L (0-31); Albumin Level 3.9 g/dL (3.5-5.0); Alkaline Phosphatase 68 U/L (39-117); Anion Gap 11 (12-20); Aspartate Amino Transferase 15 U/L (5-31); Bilirubin Direct 0.6 mg/dL (0.0-0.5); Bilirubin Total 2.1 mg/dL (0.0-1.0); Blood Urea Nitrogen 9 mg/dL (9-16); Calcium 8.8 mg/dL (8.4-10.2); Carbon Dioxide 25 mmol/L (22-29); Chloride 106 mmol/L (96-108); Creatinine Clr Calc Pharmacy 95.8; Estimated Glomerular Filt Rate > 60; Ethanol < 10 mg/dL; Glucose Random 90 mg/dL (60-115); Magnesium 1.8 mg/dL (1.6-2.6); Potassium 3.8 mmol/L (3.3-5.1); Sodium 138 mmol/L (135-145); Total Protein 6.8 g/dL (6.5-8.0)
[2022-07-02] MEDS: Acetaminophen 325 MG TABLET 975 MG PO (12:41)
[2022-07-02] MEDS: 0.9 % Sodium Chloride 1,000 ML 999 ML IV (12:41)
[2022-07-02] MEDS: iohexoL 350 MG/ML 100 ML INFUS..BTL 70 ML IV (12:52)
[2022-07-02 13:31] VITALS: BP 107/70; PULSE 83; RESP 16; O2SAT 99
[2022-07-02 14:14] LABS: Appearance Urine Clear; Color Urine Yellow; Glucose Urine UA Negative (Negative); Leukocyte Esterase Urine Negative (Negative); Nitrite Urine Negative (Negative); Specific Gravity - Urine >= 1.030 (1.005-1.025); Urine Blood Negative (Negative); Urine Ketones Negative (Negative); Urine Protein Negative (Neg-Trace)
[2022-07-02 14:30] LABS: Amphetamine Screen Urine Not Detected (Not Detect); Barbiturates, Urine Not Detected (Not Detect); Benzodiazepines Screen Urine Not Detected (Not Detect); Cannabinoid Screen Urine Not Detected (Not Detect); Cocaine Screen Urine Not Detected (Not Detect); Fentanyl, urine Not Detected (Not Detect); Opiate Screen Urine Not Detected (Not Detect); Phencyclidine Screen Urine Not Detected (Not Detect)
[2022-07-02 16:28] VITALS: BP 100/59; PULSE 92; RESP 18; O2SAT 98
[2022-07-02] MEDS: Ketorolac Tromethamine 15 MG/ML VIAL IVPUSH (16:29)
== END 2022-07-02 18:08 | disposition home or self-care (01) ==
PROVIDERS: Physician Assistant; Emergency Provider Student in an Organized Health Care Education/Training Program
DX: R56.9 Unspecified convulsions (principal); R53.1 Weakness; R51.9 Headache, unspecified; Z79.899 Other long term (current) drug therapy
CPT/HCPCS: 36415; 70496; 70498; 70551; 80048; 80076; 80307; 81003; 82077; 83735; 85025; 96361; 96374; 99284; 99285; J1885; Q9967

== ENCOUNTER 2022-07-16 01:04 | Emergency (ER) | payer MEDICAID, SELFPAY ==
--- NOTE | ~2022-07-16 | CT_ITS ---
EXAMINATION: CT HEAD WITHOUT CONTRAST CLINICAL INFORMATION: Headache COMPARISON: MRI brain dated 07/02/2022 CT head dated 07/02/2022 TECHNIQUE: Contiguous axial imaging was performed from the skull base to vertex without intravenous administration of contrast. This CT examination was performed using dose optimization techniques as appropriate, variously including the following: *Automated exposure control *Adjustment of mA and/or kV according to patient size (this includes techniques or standardized protocols for targeted exams where dose is matched to indication/reason for exam; i.e. extremities or head) *Use of iterative reconstruction technique DLP: 684 mGy-cm FINDINGS: There is no evidence of acute intracranial hemorrhage or territorial infarction. No abnormal mass effect or midline shift is seen. Chin to white matter differentiation is well preserved. No extra-axial fluid collections are identified. No hydrocephalus. No significant volume loss. There is no abnormal attenuation within the brain parenchyma. No acute osseous or soft tissue abnormality. The mastoid air cells and visualized portions of the paranasal sinuses are well aerated. CT/CT head/brain wo IV con IMPRESSION: No acute intracranial hemorrhage. No acute findings.
[2022-07-16 01:14] VITALS: BP 110/68; PULSE 102; PULSE 103; RESP 16; TEMP 37.3; O2SAT 100; O2SAT 98; BMI 17.6
--- NOTE | 2022-07-16 01:20 | ED.SEIZURE ---
HPI - Seizure General Chief Complaint: Seizure Stated Complaint: SEIZURE X 2, LASTING 6 MINS Source: patient and EMS Mode of arrival: EMS Limitations: no limitations History of Present Illness HPI Narrative: 22-year-old female history of AVM causing seizure disorder since 2020 patient get seizure once daily patient has aura for her seizure, patient felt a bit of a headache and witnessed after having a tonic-clonic seizure patient the remember the event the 1st thing she remember in the ambulance, no tongue biting, no head injury, complaining of headache which is very typical after seizure. Related Data Home Medications Medication Instructions Recorded Confirmed norethindrone 1.5 mg-ethinyl 1 tab PO DAILY 11/03/20 11/03/20 estradiol 30 mcg(21)/iron 75 mg(7) tablet ( FE .12/14 (28)) Previous Rx's Medication Instructions Recorded levetiracetam 250 mg tablet 250 mg PO BID #60 tabs 11/04/20 (Keppra) nitrofurantoin 100 mg PO Q12H 7 days #14 caps 07/16/22 monohydrate/macrocrystals 100 mg capsule (Macrobid) Allergies Allergy/AdvReac Type Severity Reaction Status Date / Time No Known Allergies Allergy Unverified 04/03/20 16:46 [No Known Allergies*] Review of Systems Review of Systems: All other systems are reviewed and are negative Constitutional: Reports as per HPI and Reports no additional constitutional complaints Eyes: Reports as per HPI and Reports no additional eye complaints Reports system reviewed and no additional complaints, except as documented Cardiovascular: Reports as per HPI and Reports no additional cardiovascular complaints Respiratory: Reports as per HPI and Reports no additional respiratory complaints Gastrointestinal: Reports as per HPI and Reports no additional gastrointestinal complaints Genitourinary: Reports no additional female genitourinary complaints Musculoskeletal: Reports no additional musculoskeletal complaints Skin/Breast: Reports system reviewed and no additional complaints, except as docu Psychiatric: Reports no additional psychiatric complaints Endocrine: Reports no additional endocrine complaints Hematologic/Lymphatic: Reports no additional hematologic/lymphatic complaints Allergic/Immunologic: Reports no additional allergic/immunologic complaints Reports system reviewed and no additional complaints, except as documented and Reports Abnormal speech present PMFSH Past Medical History Medical History No known health problems Social History Social History Household Members: Family Housing: House Do you presently have visiting nurse or other home services: No Alcohol intake: current Alcohol intake frequency: holidays/special occasions only Alcohol type: other Smoked in Last 30 Days: No Use of substances other than those prescribed or required for medical reasons: No Advance Directives: No Advance Directives Information Provided: No Patient : No service: No Current occupational status: employed Physical Exam Vital Signs: Vital Signs: Last Vital Signs Temp 98.7 F 07/16/22 03:39 Pulse 89 07/16/22 03:39 Resp 19 07/16/22 03:39 BP 105/67 07/16/22 03:39 Pulse Ox 95 07/16/22 03:39 O2 Del Method 07/16/22 03:39 BMI result Body Mass Index 17.6 Vital signs have been reviewed as appeared to be correct. Blood pressure normal. Heart rate normal. Respiration rate normal. Temperature normal. Oxygen saturation normal. Appearance: Alert. Oriented X3. No acute distress. Head: Normal external exam. Normocephalic. Atraumatic. No Kraft signs noted. No raccoon eyes noted Eyes: PERRLA. EOMI. Conjunctiva and sclera normal. Eyelids normal. ENT: TM's Normal. Pharynx normal. Uvula midline. Moist mucous membranes. No trismus noted. No drooling noted. No muffled voice noted. Neck: Normal inspection. Neck supple. FROM. No adenopathy. Thyroid Normal. No meningeal signs. No neck mass noted. CVS: Normal heart rate and rhythm. Heart sound normal. No murmurs noted. Pulses normal throughout. Respiratory: No respiratory distress. Painless inspiration. Breath sounds normal. No wheezes/rales/rhonchi noted. Chest nontender. No accessory muscle usage noted or decreased air movement noted. Abdomen: Soft and nontender. Bowel sounds normal in all 4 quadrants. No distention noted. No organomegaly noted. No visible injury noted. Back: No CVA tenderness. Full range of motion noted. Skin: Skin warm and dry. Normal skin color. Normal skin turgor. No rashes/lesions/lacerations noted. Extremities: No lower extremity edema. Extremities exhibit normal range of motion. Extremities nontender. Neuro: Oriented X 3. Cranial nerve exam: II-XII are grossly intact No motor deficit. No sensory deficit. Reflexes normal. Course Course Course Narrative: Presented after having seizure seizure is very typical for the patient patient almost get it once daily despite using Lamictal and patient confirms compliance with the medication, no head injury according to the patient, GCS of 15, normal neuro exam and negative head CT. Will discharge the patient to follow up with her neurologist. Was advised to not drive and not be involved in an activity that could put her Solange life in danger such as swimming alone or sitting in a soaking tub alone.? Would consider Macrobid for UTI. Medications Administered Discontinued Medications Generic Name Dose Route Start Last Admin Trade Name Freq PRN Reason Stop Dose Admin Sodium Chloride 1,000 mls @ 999 mls/hr 07/16/22 01:16 07/16/22 02:31 Ns IV 07/16/22 02:16 Infused .Q1H1M ONE Infusion Morphine Sulfate 2 mg 07/16/22 01:16 07/16/22 01:30 Morphine Sulfate 2 Mg/Ml Cartridge IVPUSH 07/16/22 01:17 2 mg ONCE ONE Administration Protocol Medical Decision Making Differential Diagnosis Differential Diagnoses: The differential diagnosis associated with the presentation includes (Seizure/postictal period/head injury/intracranial bleed/electrolyte disturbance/subtherapeutic level of Lamictal.) Lab Data Result Diagrams: 07/16/22 01:40 07/16/22 01:40 Labs: Lab Results 07/16/22 07/16/22 07/16/22 Range/Units 01:40 01:40 03:59 WBC 8.5 (4.8-10.8) X10*3/uL RBC 4.40 (4.20-5.50) X10*6/uL Hgb 12.6 (12.0-16.0) g/dl Hct 38.4 (37.0-47.0) % MCV 87.3 (80.0-98.0) fL MCH 28.6 (27.0-33.0) pg MCHC 32.8 (31.0-35.0) g/dl RDW 12.0 (11.0-16.0) % Plt Count 250 (160-400) X10*3/uL MPV 9.5 (9.4-12.3) fL Immature Gran % (Auto) 0.4 (0.0-0.4) % Neut % (Auto) 73.0 (45-73) % Lymph % (Auto) 18.3 L (20-40) % Kleberg % (Auto) 6.7 (2-11) % Eos % (Auto) 1.2 (0-4) % Baso % (Auto) 0.4 (0-2) % Lymph # (Auto) 1.6 (1.2-4.9) X10*3/uL Kleberg # (Auto) 0.6 (0.1-1.2) X10*3/uL Eos # (Auto) 0.1 (0.0-0.4) X10*3/uL Baso # (Auto) 0.0 (0.0-0.2) X10*3/uL Abs Immat Gran (auto) 0.03 (0.00-0.03) X10*3/uL Absolute Neuts (auto) 6.2 (2.0-8.3) x10*3/uL Absolute Nucleated RBC 0.000 (0.0-0.012) X10*3/uL Nucleated RBC % (auto) 0.0 (0.0-0.2) /100WBC Sodium 139 (135-145) mmol/L Potassium 4.1 (3.3-5.1) mmol/L Chloride 105 (96-108) mmol/L Carbon Dioxide 26 (22-29) mmol/L Anion Gap 12 (12-20) BUN 14 (9-16) mg/dL Creatinine 0.69 (0.5-1.4) mg/dL Estim Creat Clear Calc 96.2 Estimated GFR > 60 Random Glucose 87 (60-115) mg/dL Calcium 9.1 (8.4-10.2) mg/dL Total Bilirubin 1.3 H (0.0-1.0) mg/dL Direct Bilirubin 0.4 (0.0-0.5) mg/dL AST 20 (5-31) U/L ALT 12 (0-31) U/L Alkaline Phosphatase 80 (39-117) U/L Total Protein 7.5 (6.5-8.0) g/dL Albumin 4.2 (3.5-5.0) g/dL Lipase 22 (8-78) U/L Urine Color Yellow Urine Appearance Clear Urine pH 6.0 (5.0-9.0) Ur Specific Arion >= 1.030 H (1.005-1.025) Urine Protein Negative (Neg-Trace) mg/dL Urine Glucose (UA) Negative (Negative) mg/dL Urine Ketones 15 (Negative) mg/dL Urine Blood Trace H (Negative) Urine Nitrite Negative (Negative) Ur Leukocyte Esterase Negative (Negative) Urine RBC 3-5 H (0-2) /HPF Urine WBC 6-10 H (0-5) /HPF Ur Squamous Epith Cells 3-5 (0-2) /HPF Urine Bacteria 1+ (None Seen) Hyaline Casts 0-2 (0-2) /LPF Urine Test (NEGATIVE) 07/16/22 Range/Units 03:59 WBC (4.8-10.8) X10*3/uL RBC (4.20-5.50) X10*6/uL Hgb (12.0-16.0) g/dl Hct (37.0-47.0) % MCV (80.0-98.0) fL MCH (27.0-33.0) pg MCHC (31.0-35.0) g/dl RDW (11.0-16.0) % Plt Count (160-400) X10*3/uL MPV (9.4-12.3) fL Immature Gran % (Auto) (0.0-0.4) % Neut % (Auto) (45-73) % Lymph % (Auto) (20-40) % Kleberg % (Auto) (2-11) % Eos % (Auto) (0-4) % Baso % (Auto) (0-2) % Lymph # (Auto) (1.2-4.9) X10*3/uL Kleberg # (Auto) (0.1-1.2) X10*3/uL Eos # (Auto) (0.0-0.4) X10*3/uL Baso # (Auto) (0.0-0.2) X10*3/uL Abs Immat Gran (auto) (0.00-0.03) X10*3/uL Absolute Neuts (auto) (2.0-8.3) x10*3/uL Absolute Nucleated RBC (0.0-0.012) X10*3/uL Nucleated RBC % (auto) (0.0-0.2) /100WBC Sodium (135-145) mmol/L Potassium (3.3-5.1) mmol/L Chloride (96-108) mmol/L Carbon Dioxide (22-29) mmol/L Anion Gap (12-20) BUN (9-16) mg/dL Creatinine (0.5-1.4) mg/dL Estim Creat Clear Calc Estimated GFR Random Glucose (60-115) mg/dL Calcium (8.4-10.2) mg/dL Total Bilirubin (0.0-1.0) mg/dL Direct Bilirubin (0.0-0.5) mg/dL AST (5-31) U/L ALT (0-31) U/L Alkaline Phosphatase (39-117) U/L Total Protein (6.5-8.0) g/dL Albumin (3.5-5.0) g/dL Lipase (8-78) U/L Urine Color Urine Appearance Urine pH (5.0-9.0) Ur Specific Arion (1.005-1.025) Urine Protein (Neg-Trace) mg/dL Urine Glucose (UA) (Negative) mg/dL Urine Ketones (Negative) mg/dL Urine Blood (Negative) Urine Nitrite (Negative) Ur Leukocyte Esterase (Negative) Urine RBC (0-2) /HPF Urine WBC (0-5) /HPF Ur Squamous Epith Cells (0-2) /HPF Urine Bacteria (None Seen) Hyaline Casts (0-2) /LPF Urine Test NEGATIVE (NEGATIVE) Independent Interpretation I performed an independent interpretation of an: CT Scan (Head: No acute intracranial pathology.) Radiology Impression Discussion of test interpretation with radiology: I have reviewed the radiologist's reading. Discharge Plan Discharge Clinical Impression: Seizure, UTI (urinary tract infection) Patient Disposition: Home, Self-Care Instructions: Urinary Tract Infection in Women (ED), Epilepsy in Older Adults (ED) Additional Instructions: not to drive and not be involved in an activity that could put her Solange life in danger such as swimming alone or sitting in a soaking tub alone.? Prescriptions: New nitrofurantoin monohyd/m-cryst [Macrobid] 100 mg capsule 100 mg PO Q12H 7 Days Qty: 14 0RF Rx Instructions: must administer with a meal/food No Action norethindrone-e.estradiol-iron [Junel FE 1.5/30 (28)] 1.5 mg-30 mcg (21)/75 mg (7) tablet 1 tab PO DAILY levetiracetam [Keppra] 250 mg tablet 250 mg PO BID Qty: 60 1RF
[2022-07-16] MEDS: 0.9 % Sodium Chloride 1,000 ML 999 ML IV (01:28)
[2022-07-16 01:30] VITALS: RESP 16
[2022-07-16] MEDS: Morphine Sulfate 2 MG/ML CARTRIDGE IVPUSH (01:30)
[2022-07-16 01:45] LABS: Basophils Percent Auto 0.4 % (0-2); Eosinophils Absolute Auto 0.1 X10*3/uL (0.0-0.4); Eosinophils Percent Auto 1.2 % (0-4); Hematocrit 38.4 % (37.0-47.0); Hemoglobin 12.6 g/dl (12.0-16.0); Imm Gran Abs Auto 0.03 X10*3/uL (0.00-0.03); Imm Gran Pct Auto 0.4 % (0.0-0.4); Lymphocytes Absolute Auto 1.6 X10*3/uL (1.2-4.9); Lymphocytes Percent Auto 18.3 % (20-40); MANUAL DIFF FLAG NO; Mean Corpuscular HGB Conc 32.8 g/dl (31.0-35.0); Mean Corpuscular Hemoglobin 28.6 pg (27.0-33.0); Mean Corpuscular Volume 87.3 fL (80.0-98.0); Mean Platelet Volume 9.5 fL (9.4-12.3); Monocytes Absolute Auto 0.6 X10*3/uL (0.1-1.2); Monocytes Percent Auto 6.7 % (2-11); Neutrophils Absolute Auto 6.2 x10*3/uL (2.0-8.3); Platelet Count 250 X10*3/uL (160-400); White Blood Count 8.5 X10*3/uL (4.8-10.8)
[2022-07-16 02:06] LABS: Alanine Aminotransferase 12 U/L (0-31); Albumin Level 4.2 g/dL (3.5-5.0); Alkaline Phosphatase 80 U/L (39-117); Anion Gap 12 (12-20); Aspartate Amino Transferase 20 U/L (5-31); Bilirubin Direct 0.4 mg/dL (0.0-0.5); Bilirubin Total 1.3 mg/dL (0.0-1.0); Blood Urea Nitrogen 14 mg/dL (9-16); Calcium 9.1 mg/dL (8.4-10.2); Carbon Dioxide 26 mmol/L (22-29); Chloride 105 mmol/L (96-108); Creatinine Clr Calc Pharmacy 96.2; Estimated Glomerular Filt Rate > 60; Glucose Random 87 mg/dL (60-115); Lipase 22 U/L (8-78); Potassium 4.1 mmol/L (3.3-5.1); Sodium 139 mmol/L (135-145); Total Protein 7.5 g/dL (6.5-8.0)
--- NOTE | 2022-07-16 02:09 | PC.NURSE ---
PT a&ox4, does not remember getting here. Reports 01/24 headache. Meds given as documented. VSS. Seizure precautions in place, lights dimmed. Will continue to monitor.
[2022-07-16 03:39] VITALS: BP 105/67; PULSE 89; RESP 19; TEMP 37.1; O2SAT 95
--- NOTE | 2022-07-16 03:55 | PC.NURSE ---
Addendum entered by Johanna Carson 07/16/22 04:06: Urine sample collected and sent to lab. Original Note: PT ambulated to BR independently.
[2022-07-16 04:16] LABS: Appearance Urine Clear; Color Urine Yellow; Glucose Urine UA Negative (Negative); Leukocyte Esterase Urine Negative (Negative); Nitrite Urine Negative (Negative); Specific Gravity - Urine >= 1.030 (1.005-1.025); UMIC TRIGGER UACC YES; Urine Blood Trace (Negative); Urine Ketones 15 mg/dL (Negative); Urine Protein Negative (Neg-Trace)
[2022-07-16 04:21] LABS: Bacteria Urine 1+ (None Seen); Hyaline Casts Urine 0-2 /LPF (0-2); UACC Culture Trigger YES
--- NOTE | 2022-07-16 04:29 | PC.NURSE ---
PT reports no pain relief from ordered medication. Provider notified, no new orders at this time.
[2022-07-16 05:34] LABS: UPreg QC Valid YES; Urine Pregnancy NEGATIVE (NEGATIVE)
[2022-07-22 10:13] LABS: Lamotrigine Lamictal <0.5 mcg/mL (4.0-18.0)
== END 2022-07-16 06:56 | disposition home or self-care (01) ==
PROVIDERS: Emergency Provider Emergency Medicine
DX: R56.9 Unspecified convulsions (principal); N39.0 Urinary tract infection, site not specified; Z79.899 Other long term (current) drug therapy
CPT/HCPCS: 36415; 70450; 80048; 80076; 80175; 81001; 81025; 83690; 85025; 87086; 96361; 96374; 99284; J2270

== ENCOUNTER 2022-12-11 08:39 | Emergency (ER) | payer OTHER, SELFPAY ==
--- NOTE | ~2022-12-11 | XR_ITS ---
EXAMINATION: XR CHEST CLINICAL INFORMATION: Upper back pain post seizure. COMPARISON: None available. TECHNIQUE: 2 views of the chest were obtained. FINDINGS: No significant abnormality is noted involving the heart, lungs, mediastinum, bony thorax or soft tissues. XR/XR chest 2V IMPRESSION: Unremarkable chest examination.
[2022-12-11 08:54] VITALS: BP 102/71; PULSE 88; RESP 16; TEMP 37.3; O2SAT 99; BMI 19.1
--- NOTE | 2022-12-11 08:59 | ED.SEIZURE ---
HPI - Seizure General Chief Complaint: Seizure Stated Complaint: seizure l side numbness Time Seen by Provider: 12/11/22 08:58 Source: patient Mode of arrival: ambulatory Limitations: no limitations History of Present Illness HPI Narrative: Patient history of recurrent petite mal seizures on Lamictal been having more frequent seizures for last few weeks neurologist increase the dose of Lamictal in the evening to 150 mg and 100 mg in the morning last week patient is still having seizures usually in the sleep patient had a small seizure last night also with chronic contractions feeling which she realized when she woke up in the morning unwitnessed. Patient does have poor sleep unable to sleep for last few nights patient does have AVM malformation and does have a stimulator and still gets seizure since a.m. patient noticed pain on the left side of the thoracic spine no shortness of breath no fall or trauma or bruising Seizure History: Yes Related Data Home Medications Medication Instructions Recorded Confirmed norethindrone 1.5 mg-ethinyl 1 tab PO DAILY 11/03/20 11/03/20 estradiol 30 mcg(21)/iron 75 mg(7) tablet (Junel FE 1.5/30 (28)) Previous Rx's Medication Instructions Recorded levetiracetam 250 mg tablet 250 mg PO BID #60 tabs 11/04/20 (Keppra) nitrofurantoin 100 mg PO Q12H 7 days #14 caps 07/16/22 monohydrate/macrocrystals 100 mg capsule (Macrobid) lorazepam 1 mg tablet (Ativan) 1 mg PO BEDTIME PRN sleep #14 tabs 12/11/22 oxycodone 5 mg tablet 5 mg PO Q6H PRN pain #10 tabs 12/11/22 Allergies Allergy/AdvReac Type Severity Reaction Status Date / Time No Known Allergies Allergy Verified 12/11/22 09:28 [No Known Allergies*] Review of Systems Review of Systems: Yes all other systems are reviewed and are negative PMFSH Past Medical History Medical History No known health problems Social History Social History Household Members: Family Housing: House Do you presently have visiting nurse or other home services: No Alcohol intake: current Alcohol intake frequency: holidays/special occasions only Alcohol type: other Smoked in Last 30 Days: No Use of substances other than those prescribed or required for medical reasons: No Advance Directives: No Advance Directives Information Provided: Yes service: No Current occupational status: employed Physical Exam Vital Signs: Vital Signs: Last Vital Signs Temp 98.6 F 12/11/22 10:46 Pulse 85 12/11/22 10:46 Resp 14 12/11/22 10:46 BP 98/69 12/11/22 10:46 Pulse Ox 98 12/11/22 10:46 O2 Del Method Room Air 12/11/22 10:46 BMI result Body Mass Index 19.1 Appearance: Alert. Oriented X3. No acute distress. Eyes: PERRLA, No Nystagmus ENT: Pharynx normal. Oral Mucosa moist Neck: Normal inspection. Neck supple. CVS: Normal heart rate and rhythm. Pulses normal. Respiratory: No respiratory distress. Equal air entry bilateral, no wheezing/rales/rhonchi Abdomen: Soft and nontender. Bowel sounds are present, no mass palpable, no CVA tenderness back: Diffuse tenderness left side of the upper back no focal swelling or tenderness Skin: Skin warm and dry. Normal skin color. Normal skin turgor. Extremities: No lower extremity edema. No calf tenderness Neuro: Oriented X 3. No motor deficit. No sensory deficit.No cerebellar signs , cranial nerves II-XII intact Medications Administered Discontinued Medications Generic Name Dose Route Start Last Admin Trade Name Freq PRN Reason Stop Dose Admin Lorazepam 1 mg 12/11/22 09:07 12/11/22 09:16 Lorazepam 1 Mg Tablet PO 12/11/22 09:08 1 mg ONCE ONE Administration Oxycodone HCl 10 mg 12/11/22 10:45 12/11/22 10:50 Oxycodone Hcl Immed Release 5 Mg Tablet PO 12/11/22 10:46 10 mg ONCE ONE Administration Discharge Plan Discharge Clinical Impression: Generalized seizure Patient Disposition: Home, Self-Care Instructions: Recurrent Seizures in Adults (ED) Additional Instructions: Continue medications Lamictal and gabapentin as prescribed by your neurologist Sleep well take Ativan 1 mg every night to relax and sleep Oxycodone for pain Drink plenty of fluids Follow-up with neurology Prescriptions: New lorazepam [Ativan] 1 mg tablet 1 mg PO BEDTIME PRN (Reason: sleep) Qty: 14 0RF oxycodone 5 mg tablet 5 mg PO Q6H PRN (Reason: pain) Qty: 10 0RF Rx Instructions: Partial Fill upon patient request. No Action norethindrone-e.estradiol-iron [Junel FE ()] 1.5 mg-30 mcg (21)/75 mg (7) tablet 1 tab PO DAILY levetiracetam [Keppra] 250 mg tablet 250 mg PO BID Qty: 60 1RF nitrofurantoin monohyd/m-cryst [Macrobid] 100 mg capsule 100 mg PO Q12H 7 Days Qty: 14 0RF Rx Instructions: must administer with a meal/food Interventions: ED Discharge Assessment Last Done: 12/11/22 10:55 Discharge Date/Time: 12/11/22 10:56
[2022-12-11] MEDS: LORazepam 1 MG TABLET PO (09:16)
[2022-12-11 10:16] VITALS: BP 103/67; PULSE 81; RESP 14; TEMP 37.2; O2SAT 98
[2022-12-11 10:46] VITALS: BP 98/69; PULSE 85; RESP 14; TEMP 37; O2SAT 98
[2022-12-11] MEDS: oxyCODONE HCl Immed Release 5 MG TABLET 10 MG PO (10:50)
== END 2022-12-11 10:56 | disposition home or self-care (01) ==
PROVIDERS: Emergency Provider Internal Medicine
DX: G40.409 Other generalized epilepsy and epileptic syndromes, not intractable, without status epilepticus (principal); Z79.899 Other long term (current) drug therapy
CPT/HCPCS: 71046; 99283; 99284

== ENCOUNTER 2023-06-05 10:38 | Emergency (ER) | payer OTHER, SELFPAY ==
--- NOTE | ~2023-06-05 | CT_ITS ---
EXAMINATION: CT abdomen pelvis w IV con CLINICAL INFORMATION: Reason for Exam left side abdominal pain COMPARISON: 2017 TECHNIQUE: Multidetector volumetric imaging was performed from the superior aspect of the liver through the pubic symphysis 85 mL of Omnipaque 350 injected Sagittal and coronal reformatted images were obtained on the technologist's workstation. This CT examination was performed using dose optimization techniques as appropriate, variously including the following: *Automated exposure control *Adjustment of mA and/or kV according to patient size (this includes techniques or standardized protocols for targeted exams where dose is matched to indication/reason for exam; i.e. extremities or head) *Use of iterative reconstruction technique DLP: 344 mGy-cm FINDINGS: LOWER THORAX: Included lung bases are clear. HEPATOBILIARY: No focal hepatic lesions. No biliary ductal dilatation. GALLBLADDER: Gallbladder unremarkable. SPLEEN: Spleen is normal in size. PANCREAS: No focal mass or ductal dilatation. STOMACH AND GASTROINTESTINAL TRACT: Stomach is grossly unremarkable. No evidence of bowel obstruction. There is circumferential wall thickening with low attenuation of the transverse and descending colon, nonspecific CT finding, could be mild or chronic subclinical colitis. Appendix not visualized, due to paucity of intraperitoneal fat and crowding of bowel loops. No secondary sign to suggest acute pancreatitis. ADRENALS: No adrenal nodules. KIDNEYS/URETERS: No hydronephrosis, stones or solid mass lesions. URINARY BLADDER: Partially decompressed. PELVIC VISCERA: There is a free fluid in the pelvis cul-de-sac, nonspecific, in this patient age group could be physiologic. There is low-attenuation fat-containing heterogeneous structure in the right pelvis right adnexa containing fat, raising the possibility of dermoid 2.1 cm. This has enlarged compared to 0.[address] from 05/23/2017. PERITONEUM: No free air. There are mildly enlarged mesenteric peritoneal lymph nodes, could be reactive. Slight increase attenuation [place] mesentery, cannot rule out enteritis. LYMPH NODES: Few retroperitoneal para-aortic lymph nodes are normal in size, no bulky retroperitoneal lymphadenopathy. No inguinal lymphadenopathy. VASCULAR:Abdominal aorta normal in size, no aneurysm found. BONES, ABDOMINAL WALL AND SOFT TISSUES: Age-appropriate changes of the spine and skeletal system, no destructive osteolytic or osteosclerotic bone lesion found CT/CT abdomen pelvis w IV con IMPRESSION: * There is circumferential wall thickening with low attenuation of the transverse and descending colon, nonspecific CT finding, could be mild or chronic subclinical colitis. * [place] mesentery, raising possibility of mesenteritis, Mildly enlarged mesenteric peritoneal lymph nodes, nonspecific, could be reactive. * There is a 2.1 cm low-attenuation fat-containing mass in the right pelvis right adnexa containing fat, raising the possibility of dermoid. This has enlarged compared to 0.[address] from 05/23/2017. Attention to follow-up recommended. Consider correlation with follow-up ultrasound or MRI with contrast. * Free fluid in the pelvis cul-de-sac, nonspecific, in this patient age group could be physiologic. * Appendix not visualized due to paucity of intraperitoneal fat and crowding of bowel loops. No secondary sign to suggest acute pancreatitis.
[2023-06-05 10:53] VITALS: BP 123/80; PULSE 85; RESP 18; TEMP 36.7; O2SAT 98; BMI 19.7
--- NOTE | 2023-06-05 11:23 | ED_ITS ---
HPI - Abdominal Pain General Chief Complaint: Abdominal Pain Stated Complaint: LLQ pain Time Seen by Provider: 06/05/23 11:09 Source: patient Limitations: no limitations History of Present Illness HPI narrative: This is 23 years old of female presented to the emergency department with the left lower quadrant abdominal pain since yesterday also she is complaining of diarrhea nausea. Patient denies any medical problems she has history of epilepsy only. MD elicited complaint: abdominal pain Onset (ago): day(s) (1) Location: LLQ Severity: moderate Quality: cramping Radiation: LLQ Migration to: no migration Exacerbating factors: nothing Relieving factors: nothing Associated symptoms: denies other symptoms Related Data Home Medications Medication Instructions Recorded Confirmed norethindrone 1.5 mg-ethinyl 1 tab PO DAILY 11/03/20 11/03/20 estradiol 30 mcg()/iron 75 mg(7) tablet (June FE .12/14 ()) Previous Rx's Medication Instructions Recorded levetiracetam 250 mg tablet 250 mg PO BID #60 tabs 11/04/20 (Keppra) nitrofurantoin 100 mg PO Q12H 7 days #14 caps 07/16/22 monohydrate/macrocrystals 100 mg capsule (Macrobid) lorazepam 1 mg tablet (Ativan) 1 mg PO BEDTIME PRN sleep #14 tabs 12/11/22 oxycodone 5 mg tablet 5 mg PO Q6H PRN pain #10 tabs 12/11/22 Allergies Allergy/AdvReac Type Severity Reaction Status Date / Time No Known Allergies Allergy Verified 06/05/23 10:53 [No Known Allergies*] Review of Systems Constitutional: Reports no additional constitutional complaints Reports system reviewed and no additional complaints, except as documented Gastrointestinal: Reports abdominal pain [facility] Past Medical History [facility] Narrative: seizure Medical History No known health problems Social History Social History Household Members: Family Housing: House Do you presently have visiting nurse or other home services: No Alcohol intake: current Alcohol intake frequency: holidays/special occasions only Alcohol type: other Smoked in Last 30 Days: No Use of substances other than those prescribed or required for medical reasons: No Advance Directives: No service: No Current occupational status: employed Physical Exam ED Vital Signs: Vital Signs - 24 hr 06/05/23 10:53 06/05/23 11:48 06/05/23 11:52 Temperature 98.1 F 98.2 F Pulse Rate 85 88 Respiratory Rate 18 16 16 Blood Pressure 123/80 117/82 Pulse Oximetry 98 97 Oxygen Delivery Method Room Air Room Air 06/05/23 13:57 Temperature 99.0 F Pulse Rate 87 Respiratory Rate 18 Blood Pressure 105/67 Pulse Oximetry 95 Oxygen Delivery Method Room Air BMI result Body Mass Index 19.7 Const General: cooperative, comfortable, no acute distress, well developed and alert Nutritional Appearance: average body habitus Orientation/consciousness: patient oriented x3 Limitations: no limitations HENMT Head: Yes normal to inspection Face and sinus: Yes normal facial exam Neck Neck: Yes normal visual inspection and Yes full ROM Chest Chest palpation & inspection: normal inspection of the chest Resp Effort & Inspection: normal respiratory effort Auscultation: clear to auscultation bilaterally Cardio Jugular venous distension: no JVD Rate: regular rate Rhythm: regular rhythm GI Palpation (GI): Soft to palpation and Tenderness to palpation present (GI) (left lower quadrant) Auscultation: normal bowel sounds Skin General skin exam: elasticity normal and turgor normal Neuro General: patient oriented x3 Course Reevaluation(s) Reevaluation #1: She is feeling better she is eating and drinking her pain is in the left lower quadrant CT scan was reviewed the she has possible mild colitis however white count is normal. Appendix was normal with realize about the pain is in the left lower quadrant so I do not think she has appendicitis, also she has a possible right adnexal dermoid about the pain is in the left so I think this is incidental finding. I think if she come be followed up with the primary care physician. I do not think we need to give any antibiotic with a normal white count afebrile colitis is nonspecific could be viral Time: 15:27 Medical Decision Making Medical Decision Making [facility] Narrative: Patient presented with left lower quadrant abdominal pain will obtain labs UA provide analgesia in reassess @3:20 PM doing much better eating and drinking normal labs, CT possible colitis however as I said before normal white count abdomen soft no peritoneal signs. T so therefore I do not give any to give antibiotic in the absence of the elevated white count fever, could be just a viral colitis. I do not thiink she has appendicitis because the pain is in the left, the there is a possible dermoid in the right adnexa but the pain is in the left therefore this can be followed up as outpatient it is not the reason for the pain Differential Diagnosis Differential Diagnoses: The differential diagnosis associated with the presentation includes Diverticulitis/renal colic/colitis Admission/Observation Consideration of admission/observation: Escalation of care including admission/observation considered Lab Data MDM Lab Attestation statement: I reviewed the patient's lab results. 06/05/23 11:40 06/05/23 11:40 Labs: Lab Results 06/05/23 06/05/23 Range/Units 11:40 14:01 WBC 8.1 (4.8-10.8) X10*3/uL RBC 4.41 (4.20-5.50) X10*6/uL Hgb 12.7 (12.0-16.0) g/dl Hct 38.2 (37.0-47.0) % MCV 86.6 (80.0-98.0) fL MCH 28.8 (27.0-33.0) pg MCHC 33.2 (31.0-35.0) g/dl RDW 11.9 (11.0-16.0) % Plt Count 251 (160-400) X10*3/uL MPV 9.8 (9.4-12.3) fL Immature Gran % (Auto) 0.2 (0.0-0.4) % Neut % (Auto) 78.4 H (45-73) % Lymph % (Auto) 12.9 L (20-40) % [place] % (Auto) 6.2 (2-11) % Eos % (Auto) 1.9 (0-4) % Baso % (Auto) 0.4 (0-2) % Lymph # (Auto) 1.0 L (1.2-4.9) X10*3/uL [place] # (Auto) 0.5 (0.1-1.2) X10*3/uL Eos # (Auto) 0.2 (0.0-0.4) X10*3/uL Baso # (Auto) 0.0 (0.0-0.2) X10*3/uL Abs Immat Gran (auto) 0.02 (0.00-0.03) X10*3/uL Absolute Neuts (auto) 6.3 (2.0-8.3) x10*3/uL Absolute Nucleated RBC 0.000 (0.0-0.012) X10*3/uL Nucleated RBC % (auto) 0.0 (0.0-0.2) /100WBC Sodium 138 (135-145) mmol/L Potassium 3.7 (3.3-5.1) mmol/L Chloride 105 (96-108) mmol/L Carbon Dioxide 25 (22-29) mmol/L Anion Gap 12 (12-20) BUN 8 L (9-16) mg/dL Creatinine 0.71 (0.5-1.4) mg/dL Estim Creat Clear Calc 106.6 Estimated GFR > 60 Random Glucose 88 (60-115) mg/dL Calcium 9.0 (8.4-10.2) mg/dL Total Bilirubin 1.3 H (0.0-1.0) mg/dL AST 18 (5-31) U/L ALT 11 (0-31) U/L Alkaline Phosphatase 59 (39-117) U/L Total Protein 7.7 (6.5-8.0) g/dL Albumin 4.1 (3.5-5.0) g/dL Lipase 19 (8-78) U/L Beta HCG, Quant < 2 mIU/mL Urine Color Yellow Urine Appearance Clear Urine pH 6.5 (5.0-9.0) Ur Specific [place] <= 1.005 (1.005-1.025) Urine Protein Negative (Neg-Trace) mg/dL Urine Glucose (UA) Negative (Negative) mg/dL Urine Ketones Negative (Negative) mg/dL Urine Blood Negative (Negative) Urine Nitrite Negative (Negative) Ur Leukocyte Esterase Negative (Negative) Urine RBC 0-2 (0-2) /HPF Urine WBC 0-5 (0-5) /HPF Ur Squamous Epith Cells 0-2 (0-2) /HPF Urine Bacteria None Seen (None Seen) Hyaline Casts 0-2 (0-2) /LPF Independent Interpretation I performed an independent interpretation of an: CT Scan Radiology Impression Discussion of test interpretation with radiology: I have reviewed the radiologist's reading. Radiologist Impression: IMPRESSION: * There is circumferential wall thickening with low attenuation of the transverse and descending colon, nonspecific CT finding, could be mild or chronic subclinical colitis. * [place] mesentery, raising possibility of mesenteritis, Mildly enlarged mesenteric peritoneal lymph nodes, nonspecific, could be reactive. * There is a 2.1 cm low-attenuation fat-containing mass in the right pelvis right adnexa containing fat, raising the possibility of dermoid. This has enlarged compared to 0.[address] from 05/23/2017. Attention to follow-up recommended. Consider correlation with follow-up ultrasound or MRI with contrast. * Free fluid in the pelvis cul-de-sac, nonspecific, in this patient age group could be physiologic. * Appendix not visualized due to paucity of intraperitoneal fat and crowding of bowel loops. No secondary sign to suggest acute pancreatitis. Dictated By: Nomi Munoz MD Signed By: <Electronically signed by Nomi Munoz MD in [place]> 06/05/23 1404 Medications Administered Discontinued Medications Generic Name Dose Route Start Last Admin Trade Name Freq PRN Reason Stop Dose Admin Sodium Chloride 1,000 mls @ 999 mls/hr 06/05/23 11:30 06/05/23 13:04 Ns IVCONT 06/05/23 12:30 Infused .Q1H1M [place] Infusion Iohexol 85 ml 06/05/23 13:26 06/05/23 13:27 Iohexol 350 Mg/Ml 100 Ml Infus..Btl IV 06/05/23 13:27 85 ml ONCE ONE Administration Ketorolac Tromethamine 15 mg 06/05/23 11:18 06/05/23 11:44 Ketorolac Tromethamine 15 Mg/Ml Vial IVPUSH 06/05/23 11:19 Not Given ONCE ONE Morphine Sulfate 4 mg 06/05/23 11:43 06/05/23 11:48 Morphine Sulfate 4 Mg/Ml Cartridge IVPUSH 06/05/23 11:44 1 mg ONCE ONE Administration Protocol Ondansetron HCl 4 mg 06/05/23 11:26 06/05/23 11:48 Ondansetron Hcl 4 Mg/2 Ml Vial IVPUSH 06/05/23 11:27 4 mg ONCE ONE Administration Discharge Plan Discharge Clinical Impression: Abdominal pain in female patient Patient Disposition: Home, Self-Care Instructions: Abdominal Pain (ED) Additional Instructions: You have been evaluated for abdominal pain in the left lower quadrant. We do not think he has appendicitis because the pain is in the left, CT raise a question of colitis but however your blood work is normal and he denies any fever therefore we do not think you need antibiotic with just liquid diet for [address] showed it in the right adnexa there is a possible ovarian cysts (dermoid ) we do not think is the reason for the pain because his in the right side however you should follow-up with the primary care physician with an outpatient ultrasound. Return to the emergency room if you are worse if you of fever if you vomiting. The doctor that saw you today will be working tomorrow from 7-4 p.m. Prescriptions: No Action norethindrone-e.estradiol-iron [ ()] 1.5 mg-30 mcg (21)/75 mg (7) tablet 1 tab PO DAILY levetiracetam [Keppra] 250 mg tablet 250 mg PO BID Qty: 60 1RF nitrofurantoin monohyd/m-cryst [Macrobid] 100 mg capsule 100 mg PO Q12H 7 Days Qty: 14 0RF Rx Instructions: must administer with a meal/food lorazepam [Ativan] 1 mg tablet 1 mg PO BEDTIME PRN (Reason: sleep) Qty: 14 0RF oxycodone 5 mg tablet 5 mg PO Q6H PRN (Reason: pain) Qty: 10 0RF Rx Instructions: Partial Fill upon patient request. Referrals: Dionna Gilmore MD [Primary Care Provider] - 2 days Interventions: ED Discharge Assessment Last Done: 06/05/23 16:12 Discharge Date/Time: 06/05/23 16:15
[2023-06-05] MEDS: 0.9 % Sodium Chloride 1,000 ML 999 ML IVCONT (11:39)
[2023-06-05 11:44] LABS: MANUAL DIFF FLAG NO
[2023-06-05 11:48] VITALS: RESP 16
[2023-06-05] MEDS: Morphine Sulfate 4 MG/ML CARTRIDGE IVPUSH (11:48)
[2023-06-05] MEDS: ondansetron HCL 4 MG/2 ML VIAL IVPUSH (11:48)
[2023-06-05 11:52] VITALS: BP 117/82; PULSE 88; RESP 16; TEMP 36.8; O2SAT 97
[2023-06-05 11:58] LABS: Basophils Percent Auto 0.4 % (0-2); Eosinophils Absolute Auto 0.2 X10*3/uL (0.0-0.4); Eosinophils Percent Auto 1.9 % (0-4); Hematocrit 38.2 % (37.0-47.0); Hemoglobin 12.7 g/dl (12.0-16.0); Imm Gran Abs Auto 0.02 X10*3/uL (0.00-0.03); Imm Gran Pct Auto 0.2 % (0.0-0.4); Lymphocytes Percent Auto 12.9 % (20-40); Mean Corpuscular HGB Conc 33.2 g/dl (31.0-35.0); Mean Corpuscular Hemoglobin 28.8 pg (27.0-33.0); Mean Corpuscular Volume 86.6 fL (80.0-98.0); Mean Platelet Volume 9.8 fL (9.4-12.3); Monocytes Absolute Auto 0.5 X10*3/uL (0.1-1.2); Monocytes Percent Auto 6.2 % (2-11); Neutrophils Absolute Auto 6.3 x10*3/uL (2.0-8.3); Neutrophils Percent Auto 78.4 % (45-73); Platelet Count 251 X10*3/uL (160-400); Red Blood Count 4.41 X10*6/uL (4.20-5.50); Red Cell Distribution Width 11.9 % (11.0-16.0); White Blood Count 8.1 X10*3/uL (4.8-10.8)
--- NOTE | 2023-06-05 11:59 | PC.NURSE ---
pt states upon pushing the start of morphine she had a mild head dickerson- held off on giving more- gave a total of 1mg morphine per pt request to hold rest. wasting at delon w fellow rn.
[2023-06-05 12:12] LABS: Alanine Aminotransferase 11 U/L (0-31); Albumin Level 4.1 g/dL (3.5-5.0); Alkaline Phosphatase 59 U/L (39-117); Anion Gap 12 (12-20); Aspartate Amino Transferase 18 U/L (5-31); Bilirubin Total 1.3 mg/dL (0.0-1.0); Blood Urea Nitrogen 8 mg/dL (9-16); Carbon Dioxide 25 mmol/L (22-29); Chloride 105 mmol/L (96-108); Creatinine Clr Calc Pharmacy 106.6; Estimated Glomerular Filt Rate > 60; Glucose Random 88 mg/dL (60-115); HCG Quantitative < 2 mIU/mL; Lipase 19 U/L (8-78); Potassium 3.7 mmol/L (3.3-5.1); Sodium 138 mmol/L (135-145); Total Protein 7.7 g/dL (6.5-8.0)
[2023-06-05] MEDS: iohexoL 350 MG/ML 100 ML INFUS..BTL 85 ML IV (13:27)
[2023-06-05 13:57] VITALS: BP 105/67; PULSE 87; RESP 18; TEMP 37.2; O2SAT 95
[2023-06-05 14:12] LABS: Appearance Urine Clear; Color Urine Yellow; Glucose Urine UA Negative (Negative); Leukocyte Esterase Urine Negative (Negative); Nitrite Urine Negative (Negative); PH 6.5 (5.0-9.0); Specific Gravity - Urine <= 1.005 (1.005-1.025); Urine Blood Negative (Negative); Urine Ketones Negative (Negative); Urine Protein Negative (Neg-Trace)
[2023-06-05 14:17] LABS: Bacteria Urine None Seen (None Seen); Hyaline Casts Urine 0-2 /LPF (0-2); RBC Urine 0-2 /HPF (0-2); Squamous Epithelial Cell Urine 0-2 /HPF (0-2); WBC Urine 0-5 /HPF (0-5)
--- NOTE | 2023-06-05 15:00 | PC.NURSE ---
no distress, reports improved pain, no vomiting. eating crackers given by md trevino and tolerating well. drinking po fluids. no distress
[2023-06-05 15:34] VITALS: BP 104/74; PULSE 79; RESP 16; TEMP 36.6; O2SAT 98
[2023-06-05 16:00] VITALS: RESP 16
== END 2023-06-05 16:15 | disposition home or self-care (01) ==
PROVIDERS: Emergency Provider Emergency Medicine; PCP Family Medicine
DX: R10.32 Left lower quadrant pain (principal); R11.2 Nausea with vomiting, unspecified; R19.7 Diarrhea, unspecified; Z79.899 Other long term (current) drug therapy
CPT/HCPCS: 36415; 74177; 80053; 81001; 83690; 84702; 85025; 96361; 96374; 96375; 99284; 99285; J2270; J2405; Q9967

== ENCOUNTER 2023-07-20 21:58 | Emergency (ER) | payer MEDICAID, SELFPAY ==
[2023-07-20 22:02] VITALS: BP 130/84; PULSE 122; RESP 18; TEMP 36.9; O2SAT 97; BMI 20.2
[2023-07-21 05:19] VITALS: BP 118/81; PULSE 89; RESP 20; O2SAT 100
--- NOTE | 2023-07-21 05:20 | PC.NURSE ---
Pt reprots being home cooking dinner when she developed a sharp pain in left chest that radiated to left arm followed by syncopal episode. Pt down approximately 1 minute and this was a witnessed episode. Pt reporting that she is now also having left abdominal pain 02/24 similar to her visit in May when she was told she had an inflamed colon. Pt reports 1 lg, hard BM with bright red blood. denies nausea, vomiting at this time.
[2023-07-21 05:24] VITALS: PULSE 91
--- NOTE | 2023-07-21 06:05 | ED.CHESTPAIN ---
HPI - Chest Pain General Chief Complaint: Chest Pain Stated Complaint: Syncope Time Seen by Provider: 07/21/23 05:55 Source: patient Mode of arrival: ambulatory Limitations: no limitations History of Present Illness HPI narrative: Patient with history of seizure disorder on Lamictal, anxiety around 13:00 patient had syncope episode witnessed by her friends no head injury that time been sugar started having mid chest pain patient does feel very anxious pain is radiating to the although the left chest and no vomiting patient fell shortness of breath when ambulated. Patient does not have any risk factors for coronary disease or blood clots Related Data Home Medications Medication Instructions Recorded Confirmed norethindrone 1.5 mg-ethinyl 1 tab PO DAILY 11/03/20 11/03/20 estradiol 30 mcg(21)/iron 75 mg(7) tablet ([place] FE .12/14 ()) Previous Rx's Medication Instructions Recorded levetiracetam 250 mg tablet 250 mg PO BID #60 tabs 11/04/20 (Keppra) nitrofurantoin 100 mg PO Q12H 7 days #14 caps 07/16/22 monohydrate/macrocrystals 100 mg capsule (Macrobid) lorazepam 1 mg tablet (Ativan) 1 mg PO BEDTIME PRN sleep #14 tabs 12/11/22 oxycodone 5 mg tablet 5 mg PO Q6H PRN pain #10 tabs 12/11/22 Allergies Allergy/AdvReac Type Severity Reaction Status Date / Time No Known Allergies Allergy Verified 07/20/23 22:07 [No Known Allergies*] Review of Systems Review of Systems: Yes all other systems are reviewed and are negative PMFSH Past Medical History Onset Date is defined in the Problem List Problems that require an onset date and time if occurred within 24 hrs of arrival to the ED Aortic Dissection and Rupture; Neurologic impairment; Cardiopulmonary Arrest; Endotracheal Intubation; Insertion or Replacement of Mechanical Circulatory Assist Device Medical History No known health problems Social History Social History Household Members: Family Housing: House Do you presently have visiting nurse or other home services: No Alcohol intake: never Smoked in Last 30 Days: No Use of substances other than those prescribed or required for medical reasons: No Any prior treatment program specific to substance use: No Advance Directives: No Advance Directives Information Provided: Yes Patient : No service: No Current occupational status: employed Physical Exam Vital Signs: Vital Signs: Last Vital Signs Temp 98.3 F 07/21/23 07:28 Pulse 83 07/21/23 07:28 Resp 13 07/21/23 07:28 BP 99/74 07/21/23 07:28 Pulse Ox 99 07/21/23 07:28 O2 Del Method Room Air 07/21/23 07:28 BMI result Body Mass Index 20.2 Appearance: Alert. Oriented X3. No acute distress. Eyes: PERRLA, No Nystagmus ENT: Pharynx normal. Oral Mucosa moist Neck: Normal inspection. Neck supple. CVS: Normal heart rate and rhythm. Pulses normal. Respiratory: No respiratory distress. Equal air entry bilateral, no wheezing/rales/rhonchi Abdomen: Soft and nontender. Bowel sounds are present, no mass palpable, no CVA tenderness Skin: Skin warm and dry. Normal skin color. Normal skin turgor. Extremities: No lower extremity edema. No calf tenderness Neuro: Oriented X 3. No motor deficit. Medical Decision Making Lab Data MDM Lab Attestation statement: I reviewed the patient's lab results. 07/20/23 22:20 07/20/23 22:20 Labs: Lab Results 07/20/23 Range/Units 22:20 WBC 9.5 (4.8-10.8) X10*3/uL RBC 4.54 (4.20-5.50) X10*6/uL Hgb 13.0 (12.0-16.0) g/dl Hct 38.9 (37.0-47.0) % MCV 85.7 (80.0-98.0) fL MCH 28.6 (27.0-33.0) pg MCHC 33.4 (31.0-35.0) g/dl RDW 11.9 (11.0-16.0) % Plt Count 288 (160-400) X10*3/uL MPV 9.2 L (9.4-12.3) fL Immature Gran % (Auto) 0.2 (0.0-0.4) % Neut % (Auto) 74.8 H (45-73) % Lymph % (Auto) 16.6 L (20-40) % [place] % (Auto) 6.7 (2-11) % Eos % (Auto) 1.3 (0-4) % Baso % (Auto) 0.4 (0-2) % Lymph # (Auto) 1.6 (1.2-4.9) X10*3/uL [place] # (Auto) 0.6 (0.1-1.2) X10*3/uL Eos # (Auto) 0.1 (0.0-0.4) X10*3/uL Baso # (Auto) 0.0 (0.0-0.2) X10*3/uL Abs Immat Gran (auto) 0.02 (0.00-0.03) X10*3/uL Absolute Neuts (auto) 7.1 (2.0-8.3) x10*3/uL Absolute Nucleated RBC 0.000 (0.0-0.012) X10*3/uL Nucleated RBC % (auto) 0.0 (0.0-0.2) /100WBC Sodium 139 (135-145) mmol/L Potassium 3.5 (3.3-5.1) mmol/L Chloride 102 (96-108) mmol/L Carbon Dioxide 28 (22-29) mmol/L Anion Gap 13 (12-20) BUN 13 (9-16) mg/dL Creatinine 0.76 (0.5-1.4) mg/dL Estim Creat Clear Calc 102.1 Estimated GFR > 60 Random Glucose 134 H (60-115) mg/dL Calcium 9.7 D (8.4-10.2) mg/dL Total Bilirubin 1.0 (0.0-1.0) mg/dL AST 17 (5-31) U/L ALT 9 (0-31) U/L Alkaline Phosphatase 72 (39-117) U/L Troponin I High Sens < 2.7 (<3.5-17.0) ng/L Total Protein 8.1 H (6.5-8.0) g/dL Albumin 4.3 (3.5-5.0) g/dL Influenza Type A (PCR) NEGATIVE (Negative) Influenza Type B (PCR) NEGATIVE (Negative) RSV RNA Qual (PCR) NEGATIVE (Negative) SARS-CoV-2 RNA (RT-PCR) NEGATIVE (Negative) Independent Interpretation I performed an independent interpretation of an: EKG Interpretation: Said tachycardia heart rate 102 beats per minute normal interval normal axis no acute distension no acute ischemia Discharge Plan Discharge Clinical Impression: Chest pain Patient Disposition: Still a Patient Prescriptions: No Action norethindrone-e.estradiol-iron [ 1.5/30 (28)] 1.5 mg-30 mcg (21)/75 mg (7) tablet 1 tab PO DAILY levetiracetam [Keppra] 250 mg tablet 250 mg PO BID Qty: 60 1RF nitrofurantoin monohyd/m-cryst [Macrobid] 100 mg capsule 100 mg PO Q12H 7 Days Qty: 14 0RF Rx Instructions: must administer with a meal/food lorazepam [Ativan] 1 mg tablet 1 mg PO BEDTIME PRN (Reason: sleep) Qty: 14 0RF oxycodone 5 mg tablet 5 mg PO Q6H PRN (Reason: pain) Qty: 10 0RF Rx Instructions: Partial Fill upon patient request.
--- NOTE | 2023-07-21 07:07 | PC.NURSE ---
his RN ttempted to place iv x2, unsuccessful. D-Dimer drawn with butterfly and sent to lab.
[2023-07-21 07:28] VITALS: BP 99/74; PULSE 83; RESP 13; TEMP 36.8; O2SAT 99
--- NOTE | 2023-07-21 07:33 | PC.NURSE ---
patient a&ox3, pt mildly hypotensive but vitals otherwise stable, mending carrier nsr, pt c/o llq abd pain7/10- pt describes it as a sharp constant pain. pt awaiting repeat labs, difficult stick-will need us guided IV if one is needed, call marroquin within reach, will continue to monitor
[2023-07-21 10:17] VITALS: BP 96/66; PULSE 88; RESP 20; O2SAT 99
== END 2023-07-21 10:52 | disposition home or self-care (01) ==
PROVIDERS: Emergency Provider Student in an Organized Health Care Education/Training Program
DX: R07.9 Chest pain, unspecified (principal); Z20.822 Contact with and (suspected) exposure to COVID-19; Z20.828 Contact with and (suspected) exposure to other viral communicable diseases; R00.0 Tachycardia, unspecified; Z79.899 Other long term (current) drug therapy
CPT/HCPCS: 0241U; 36415; 71045; 71275; 80053; 84484; 84702; 85025; 85379; 93005; 99284; 99285; Q9967

== ENCOUNTER → 2023-07-20 22:12 | Outpatient (BNV) | payer OTHER, SELFPAY | PROVIDERS: Emergency Provider Student in an Organized Health Care Education/Training Program; Visit Provider Internal Medicine Cardiovascular Disease | DX: R00.0 Tachycardia, unspecified (principal) | CPT/HCPCS: 93010 ==

== ENCOUNTER 2023-10-21 14:40 | Outpatient (REF) | payer MEDICAID, SELFPAY ==
[2023-10-21 15:03] LABS: MANUAL DIFF FLAG NO
[2023-10-21 15:43] LABS: Basophils Percent Auto 0.4 % (0-2); Eosinophils Absolute Auto 0.1 X10*3/uL (0.0-0.4); Eosinophils Percent Auto 0.9 % (0-4); Hematocrit 40.4 % (37.0-47.0); Hemoglobin 13.1 g/dl (12.0-16.0); Imm Gran Abs Auto 0.02 X10*3/uL (0.00-0.03); Imm Gran Pct Auto 0.3 % (0.0-0.4); Lymphocytes Absolute Auto 1.5 X10*3/uL (1.2-4.9); Lymphocytes Percent Auto 22.7 % (20-40); Mean Corpuscular HGB Conc 32.4 g/dl (31.0-35.0); Mean Corpuscular Hemoglobin 28.2 pg (27.0-33.0); Mean Corpuscular Volume 86.9 fL (80.0-98.0); Mean Platelet Volume 9.8 fL (9.4-12.3); Monocytes Absolute Auto 0.5 X10*3/uL (0.1-1.2); Neutrophils Absolute Auto 4.6 x10*3/uL (2.0-8.3); Neutrophils Percent Auto 67.7 % (45-73); Platelet Count 276 X10*3/uL (160-400); Red Blood Count 4.65 X10*6/uL (4.20-5.50); Red Cell Distribution Width 12.2 % (11.0-16.0); White Blood Count 6.8 X10*3/uL (4.8-10.8)
[2023-10-21 16:40] LABS: Alanine Aminotransferase 11 U/L (0-31); Albumin Level 4.2 g/dL (3.5-5.0); Alkaline Phosphatase 72 U/L (39-117); Anion Gap 9 (12-20); Aspartate Amino Transferase 17 U/L (5-31); Bilirubin Total 1.4 mg/dL (0.0-1.0); Blood Urea Nitrogen 10 mg/dL (9-16); C Reactive Protein < 0.04 mg/dL (< or = 0.50); Calcium 9.5 mg/dL (8.4-10.2); Carbon Dioxide 26 mmol/L (22-29); Chloride 107 mmol/L (96-108); Estimated Glomerular Filt Rate > 60; Glucose Random 75 mg/dL (60-115); Iron 115 mcg/dL (30-160); Percent Iron Saturation 38 % (15-50); Potassium 3.4 mmol/L (3.3-5.1); Sodium 139 mmol/L (135-145); Total Iron Binding Capacity 299 mcg/dL (228-428); Unsaturated Iron Binding 184 ug/dL
[2023-10-21 16:55] LABS: Ferritin 33 ng/mL (10-122); Thyroid Stimulating Hormone 0.47 uIU/mL (0.32-4.0)
[2023-10-24 18:34] LABS: Immunoglobulin A 508 mg/dL (47-310)
[2023-10-25 13:33] LABS: Transglutaminase IgA <1.0 U/mL
== END 2023-10-21 14:41 | disposition home or self-care (01) ==
LOC: HO.LAB 14:40
PROVIDERS: PCP Nurse Practitioner Primary Care; Visit Provider Physician Assistant
DX: R10.32 Left lower quadrant pain (principal); K59.00 Constipation, unspecified; K52.9 Noninfective gastroenteritis and colitis, unspecified
CPT/HCPCS: 36415; 80053; 82728; 82784; 83540; 84443; 85025; 86140; 86364

== ENCOUNTER 2025-03-18 14:40 | Emergency (ER) | payer MEDICAID, SELFPAY ==
--- NOTE | ~2025-03-18 | XR_ITS ---
CLINICAL HISTORY: Coughing. pneumonia? Chest Radiograph Comparison: CT/MN/SR - CT CHEST ANGIOGRAPHY WITH IV CONTRAST - 07/21/23 09:24 EST CR/SR - XR CHEST 2 VIEWS - 07/20/23 22:26 EST Findings: No cardiomegaly. Normal mediastinal contours. No pneumothorax. No opacity. No pleural effusion. Normal upper abdomen. No acute fracture. Impression: No acute findings. This document has been electronically signed by: Kalyn Moreira MD on 03/18/2025 16:37:22
[2025-03-18 14:41] VITALS: BP 119/61; PULSE 130; RESP 20; TEMP 37; O2SAT 98; BMI 18.9
--- NOTE | 2025-03-18 14:54 | ECG_ITS ---
Test Reason : SOB Blood Pressure : */* mmHG Vent. Rate : 105 BPM Atrial Rate : 105 BPM P-R Int : 178 ms QRS Dur : 72 ms QT Int : 322 ms P-R-T Axes : 57 63 25 degrees QTcB Int : 425 ms Sinus tachycardia Possible Left atrial enlargement Borderline ECG When compared with ECG of 20-Jul-2023 22:12, No significant change was found Referred By: Parish Laboy Electronically Signed By: Darrell Marroquin
--- NOTE | 2025-03-18 15:04 | ED.GENADULT ---
HPI - General Adult General Chief complaint: Upper Respiratory Symptoms Stated complaint: diff breathing Time Seen by Provider: 03/18/25 15:02 Source: patient Mode of arrival: ambulatory Limitations: no limitations History of Present Illness ED Provider: Parish Laboy HPI narrative: 25 yold female with pmh of seizure presents to the ED for sore throat, coughing, headache, bodyaches, fever, and chills. Patient denies any drooling, change in voice, difficulty tolerating solids and liquid, chest pain, or shortness of breath. Related Data Home Medications ?Medication ?Instructions ?Recorded ?Confirmed norethindrone 1.5 mg-ethinyl 1 tab PO DAILY 11/03/20 11/03/20 estradiol 30 mcg(21)/iron 75 mg(7) tablet (June FE .12/14 ()) Previous Rx's ?Medication ?Instructions ?Recorded levetiracetam 250 mg tablet 250 mg PO BID #60 tabs 11/04/20 (Keppra) nitrofurantoin 100 mg PO Q12H 7 days #14 caps 07/16/22 monohydrate/macrocrystals 100 mg capsule (Macrobid) lorazepam 1 mg tablet (Ativan) 1 mg PO BEDTIME PRN sleep #14 tabs 12/11/22 oxycodone 5 mg tablet 5 mg PO Q6H PRN pain #10 tabs 12/11/22 azithromycin 250 mg tablet See Rx Instructions PO .COMPLEX #6 03/18/25 tabs benzonatate 200 mg capsule 200 mg PO TID PRN cough 5 days #15 03/18/25 caps Allergies Allergy/AdvReac Type Severity Reaction Status Date / Time No Known Allergies (No Known Allergy Verified 03/18/25 14:47 Allergies*) Review of Systems Review of Systems: sore thorat, coughing, fever bodyaches, chills Yes all other systems are reviewed and are negative PMFSH Past Medical History Medical History No known health problems Social History Social History Household Members: Family Housing: House Do you presently have visiting nurse or other home services: No Alcohol intake: current Alcohol intake frequency: holidays/special occasions only Alcohol type: other Smoked in Last 30 Days: No Use of substances other than those prescribed or required for medical reasons: No Advance Directives: No Advance Directives Information Provided: Yes Patient : No service: No Current occupational status: employed Physical Exam ED Vital Signs: Vital Signs - 24 hr 03/18/25 14:41 03/18/25 16:47 03/18/25 17:09 Temperature 98.6 F 98.7 F Pulse Rate 130 H 101 H Respiratory Rate 20 18 Blood Pressure 119/61 99/75 Pulse Oximetry 98 98 98 Oxygen Delivery Method Room Air Room Air Room Air 03/18/25 17:11 03/18/25 17:12 Temperature 98.1 F Pulse Rate 102 H 126 H Respiratory Rate 17 19 Blood Pressure 102/75 Pulse Oximetry 98 Oxygen Delivery Method Room Air BMI result Body Mass Index 18.9 Const General: cooperative, healthy appearing, comfortable, no acute distress, well developed, alert, awake and Physically active Orientation/consciousness: patient oriented x3 HENMT Head: Yes normal to inspection, Yes No palpable skull fracture present and Yes normocephalic Ears: hearing grossly normal bilaterally, external ears normal, TM's normal bilaterally, TM normal on the right, TM normal on the left, EAC's normal and mastoids normal Throat: Yes posterior oropharynx normal, Yes uvula midline and Yes abnormal tonsil (erythema on tonsils. ) Eyes General: appearance normal, both eyes and all related structures Neck Neck: Yes normal visual inspection, Yes full ROM, Yes no lymphadenopathy, Yes no meningeal signs, Yes trachea midline, Yes supple, No anterior neck swelling and No tender Chest Chest palpation & inspection: normal inspection of the chest and normal palpation of entire chest wall Resp Effort & Inspection: normal respiratory effort and able to speak in complete sentences Auscultation: clear to auscultation bilaterally Cardio Jugular venous distension: no JVD Heart sounds: S1 normal heart sound present and S2 normal heart sound present GI Inspection: Yes normal to inspection Palpation (GI): Soft to palpation, not firm, nontender, no guarding and not rigid General: Yes no CVA tenderness Back/Spine/Pelvis Back: no CVA tenderness and No back tenderness Skin General skin exam: no rashes or lesions noted, elasticity normal and turgor normal Neuro General: patient oriented x3, gait normal, tone normal, moves all extremities, Normal light touch and pain sensation, no meningeal signs, no focal motor deficits and CN's II-XI intact bilaterally Extrem General: Yes normal to inspection, Yes full ROM and Yes capillary refill normal Psych Appearance: grossly normal, well kempt and not disheveled Course Course Course Narrative: RME; 25 yold female presents to the ED for sore throat, coughing, fever, chills, and abodyaches. patient tachycardic. SARS, Strep, EKG ordered Medications Administered Discontinued Medications Generic Name Dose Route Start Last Admin Trade Name Lawrenceq PRN Reason Stop Dose Admin Albuterol Sulfate 2 puff 03/18/25 16:55 03/18/25 17:10 Albuterol Sulfate 90 Mcg 8 Gm Inhaler INHALE 03/18/25 16:56 2 puff ONCE ONE Administration Guaifenesin/Codeine Phosphate 10 ml 03/18/25 16:18 03/18/25 16:44 Guaifen/Codeine Sf 200/20/10ml 10 Ml Liquid PO 03/18/25 16:19 10 ml ONCE STA Administration Lidocaine HCl 15 ml 03/18/25 16:18 03/18/25 16:44 Lidocaine Hcl Viscous 2 % 15 Ml Solution MUCOUS MEM 03/18/25 16:19 15 ml ONCE ONE Administration Medical Decision Making Medical Decision Making [facility] Narrative: RME: 25-year-old female presents to ED for URI symptoms sore throat, coughing body aches fever and chills. Patient denies any drooling, change in voice, coughing up blood, or recent dental work. COVID influenza strep came back negative EKG. EKG shows sinus tach troponin negative after having symptoms for 8 days. Heart score is 0. Not suspecting PE. No need for D-dimer. Patient denies any pleurisy, coughing up blood, recent long travel,recent surgery, leg swelling, calf pain, or any estrogen oral control. Chest x-ray negative pneumonia. Uvula is midline tonsils red negative for exudates. Not suspecting peritonsillar abscess, Karthik's angina, retropharyngeal abscess, epiglottitis, PE, UT, myocarditis, pericarditis, CHF, or any other life threatening etiology. Differential Diagnosis Differential Diagnoses: The differential diagnosis associated with the presentation includes (Pneumonia strep COVID influenza) Admission/Observation Consideration of admission/observation: Escalation of care including admission/observation considered Lab Data MDM Lab Attestation statement: I reviewed the patient's lab results. 03/18/25 15:36 03/18/25 15:36 Labs: Lab Results 03/18/25 03/18/25 Range/Units 14:50 15:36 WBC 12.9 H (4.8-10.8) X10*3/uL RBC 4.46 (4.20-5.50) X10*6/uL Hgb 12.8 (12.0-16.0) g/dl Hct 37.3 (37.0-47.0) % MCV 83.6 (80.0-98.0) fL MCH 28.7 (27.0-33.0) pg MCHC 34.3 (31.0-35.0) g/dl RDW 12.4 (11.0-16.0) % Plt Count 272 (160-400) X10*3/uL MPV 9.2 L (9.4-12.3) fL Immature Gran % (Auto) 0.5 H (0.0-0.4) % Neut % (Auto) 76.0 H (45-73) % Lymph % (Auto) 14.6 L (20-40) % [place] % (Auto) 8.1 (2-11) % Eos % (Auto) 0.5 (0-4) % Baso % (Auto) 0.3 (0-2) % Lymph # (Auto) 1.9 (1.2-4.9) X10*3/uL [place] # (Auto) 1.1 (0.1-1.2) X10*3/uL Eos # (Auto) 0.1 (0.0-0.4) X10*3/uL Baso # (Auto) 0.0 (0.0-0.2) X10*3/uL Abs Immat Gran (auto) 0.06 H (0.00-0.03) X10*3/uL Absolute Neuts (auto) 9.8 H (2.0-8.3) x10*3/uL Absolute Nucleated RBC 0.000 (0.0-0.012) X10*3/uL Nucleated RBC % (auto) 0.0 (0.0-0.2) /100WBC PT 11.9 (10.9-12.4) SEC INR 1.0 (0.9-1.1) APTT 29.2 (26.7-34.1) SEC Sodium 140 (135-145) mmol/L Potassium 3.6 (3.3-5.1) mmol/L Chloride 102 (96-108) mmol/L Carbon Dioxide 24 (22-29) mmol/L Anion Gap 18 (12-20) BUN 8 L (9-16) mg/dL Creatinine 0.65 (0.5-1.4) mg/dL Estim Creat Clear Calc 106.8 Estimated GFR > 60 Random Glucose 101 (60-115) mg/dL Calcium 9.5 (8.4-10.2) mg/dL Total Bilirubin 0.8 (0.0-1.0) mg/dL AST 24 (5-31) U/L ALT 12 (0-31) U/L Alkaline Phosphatase 71 (39-117) U/L Troponin I High Sens < 2.7 (<3.5-17.0) ng/L Total Protein 8.6 H (6.5-8.0) g/dL Albumin 4.7 (3.5-5.0) g/dL COVID-19 (DIANE) Negative (Negative) COVID-19 Clin Com See Note Monoscreen Negative (Negative) Influenza Type A (CHRISTO) Negative (Negative) Influenza Type B (CHRISTO) Negative (Negative) Influenza A & B Note See Note S. pyogenes GrpA CHRISTO Negative (Negative) Independent Interpretation I performed an independent interpretation of an: EKG (Sinus tach) and Plain X-Ray Radiology Impression Discussion of test interpretation with radiology: I have reviewed the radiologist's reading. Independent Historian Clinical information obtained from an independent historian. History obtained from or confirmed by: Other (Patient) Prescription Management I considered prescription management with: Other (Off pain medication) Discharge Plan Discharge Clinical Impression: Bronchitis Patient Disposition: Home, Self-Care Instructions: How to Use a Metered-Dose Inhaler (DC), Acute Bronchitis (ED) Additional Instructions: Recommend follow-up with primary care provider. Return to the ED immediately for any chest pain, shortness of breath, drooling, change in voice, fever, chills, neck swelling, inability tolerate solid food/liquid, or any other concerning symptoms. Your labs and imaging came back reassuring. You will be given albuterol inhaler in the ED. continue using albuterol you were given in the ED. Prescriptions: New benzonatate 200 mg capsule 200 mg PO TID PRN (Reason: cough) 5 Days Qty: 15 0RF azithromycin 250 mg tablet See Rx Instructions .ROUTE .COMPLEX Qty: 6 0RF Rx Instructions: For 250 mg dose pack: take 500 mg today (day 1), then 250 mg for 4 days (days 2-5) No Action norethindrone-e.estradiol-iron [ FE 1.5/30 (28)] 1.5 mg-30 mcg (21)/75 mg (7) tablet 1 tab PO DAILY levetiracetam [Keppra] 250 mg tablet 250 mg PO BID Qty: 60 1RF nitrofurantoin monohyd/m-cryst [Macrobid] 100 mg capsule 100 mg PO Q12H 7 Days Qty: 14 0RF Rx Instructions: must administer with a meal/food lorazepam [Ativan] 1 mg tablet 1 mg PO BEDTIME PRN (Reason: sleep) Qty: 14 0RF oxycodone 5 mg tablet 5 mg PO Q6H PRN (Reason: pain) Qty: 10 0RF Rx Instructions: Partial Fill upon patient request. Referrals: Delicia Hess NP [Primary Care Provider, Family Practice] - 2 days Referral Note: Coughing, sore throat, headache, body aches and chills. Treated as bronchitis Clinical Impression: Bronchitis Stand Alone Forms: Work/School Release Interventions: ED Discharge Assessment Last Done: 03/18/25 17:11 Discharge Date/Time: 03/18/25 17:30 Print Language: Spanish
[2025-03-18 15:11] LABS: IDNOW Serial# 55D5AD1C
[2025-03-18 15:12] LABS: COVID-19 Test Negative (Negative); IDNOW Serial# 58CA691E; Influenza B2 Negative (Negative)
[2025-03-18 15:18] LABS: IDNOW Serial# 08D9AD1C; Strep A Nucleic Acid Negative (Negative)
[2025-03-18 15:40] LABS: MANUAL DIFF FLAG NO
[2025-03-18 15:41] LABS: Hematocrit 37.3 % (37.0-47.0); Hemoglobin 12.8 g/dl (12.0-16.0); Imm Gran Abs Auto 0.06 X10*3/uL (0.00-0.03); Imm Gran Pct Auto 0.5 % (0.0-0.4); Lymphocytes Absolute Auto 1.9 X10*3/uL (1.2-4.9); Mean Corpuscular HGB Conc 34.3 g/dl (31.0-35.0); Mean Corpuscular Hemoglobin 28.7 pg (27.0-33.0); Mean Corpuscular Volume 83.6 fL (80.0-98.0); NRBC Abs Auto 0.000 X10*3/uL (0.0-0.012); NRBC Pct Auto 0.0 /100WBC (0.0-0.2); Platelet Count 272 X10*3/uL (160-400); Red Blood Count 4.46 X10*6/uL (4.20-5.50); White Blood Count 12.9 X10*3/uL (4.8-10.8)
[2025-03-18 15:49] LABS: INTERNATIONAL NORM RATIO 1.0 (0.9-1.1); Prothrombin Time 11.9 SEC (10.9-12.4)
[2025-03-18 15:51] LABS: Partial Thromboplastin Time 29.2 SEC (26.7-34.1)
[2025-03-18 15:55] LABS: Alanine Aminotransferase 12 U/L (0-31); Albumin Level 4.7 g/dL (3.5-5.0); Alkaline Phosphatase 71 U/L (39-117); Anion Gap 18 (12-20); Aspartate Amino Transferase 24 U/L (5-31); Blood Urea Nitrogen 8 mg/dL (9-16); Calcium 9.5 mg/dL (8.4-10.2); Carbon Dioxide 24 mmol/L (22-29); Chloride 102 mmol/L (96-108); Creatinine Clr Calc Pharmacy 106.8; Estimated Glomerular Filt Rate > 60; Potassium 3.6 mmol/L (3.3-5.1); Sodium 140 mmol/L (135-145); Total Protein 8.6 g/dL (6.5-8.0)
[2025-03-18 16:03] LABS: Troponin-I High Sensitivity < 2.7 ng/L (<3.5-17.0)
--- OUTSIDE RECORDS SUMMARY | 2025-03-18 16:06 | XMS_ITS | Encounter Summary ---
Author Organization [facility] Address [address] [place] [id number] Phone Care Team Providers Care Wall Man Name Role Phone Karina Reis SLATE WORKER Primary Care Provider Un available Reason for Visit * Reason Comments Med Refill Encounter Details Date Type Department Care Team (Late st Contact Info) Description 02/11/2018 Refill [facility] - [address] [address] Ning Madrigal MD Generalized abdominal pain Social History Tobacco Use Types Packs/Day Years Used Date Smoking Tobacco: Never Smokeless Tobacco: Never Comments:Never smoker Alcohol Use Standard Drinks/Week Comments No 0 (1 standard drink = 0.6 oz pur e alcohol) Comments Unknown Sex and Gender Information Value Date Recorded Sex Assigned at Female 02/01/2020 12:07 AM EDT Legal Sex Female 4:57 PM EDT Gender Identity Female 02/01/2020 12:07 AM EDT Sexual Orientation Bisexual 02/01/2020 12 :07 AM EDT documented as of this encounter Plan of Treatment Not on file documented as of this encounter Visit Diagnoses Diagnosis Generalized abdominal pain Abdominal pain, generalized documented in this encounter Care Teams Wall Man Relationship Specialty Start Date End Date Karina Reis NP PCP - General Pediatrics 07/20/20 09/02/22 documented as of this encounter
--- OUTSIDE RECORDS SUMMARY | 2025-03-18 16:06 | XMS_ITS | Encounter Summary ---
Author Organization [facility] Address [address] [place] [address] Phone Care Team Providers Care Parking Enforcer Name Role Phone Karina Reis NP Primary Care Provider Un available Reason for Visit * Reason Onset Date Comments Med Refill Med Refill 05/13/2021 Encounter Details Date Type Department Care Team (Late st Contact Info) Description 03/15/2021 Refill [facility] [address] [address] Karina Reis NP Breakthrough bleeding Social History Tobacco Use Types Packs/Day Years Used Date Smoking Tobacco: Never Smokeless Tobacco: Never Comments:Never smoker Alcohol Use Standard Drinks/Week Comments No 0 (1 standard drink = 0.6 oz pur e alcohol) Hunger/Food Answer Date Recorded In the last 12 months, did y ou or your family ever eat less than you felt you should because there wasn't enough money for food? No 01/30/2020 Stable Housing Answer Date Recorded Are you worried that in the next 2 months you may not have stable housing? No 01/30/2020 Transportation Concerns Answer Date Rec orded In the last 12 months, have you or your family ever had to go without healthcare because you didn't have a way to get there? No 01/30/2020 Hazards in Home Answer Date Recorded Think about the place you li ve. Do you have problems with any of the following? Pests (mice or roaches), mold, no/not working smoke detectors, water leaks, no window guards. No 2019 Financing Utilities Answer Date Recorde d In the last 12 months, has t he electric, gas, oil, or water company threatened to shut off your services in your home? No 01/30/2020 Safety at Home Answer Date Recorded Are you or your family worried about feeling saf e in your home? No 01/30/2020 Outside Support Answer Date Recorded Do you feel that you need mo re support from other people or programs to help you care for yourself or your family? No 01/30/2020 Understanding Health Concerns Answer Da te Recorded Do you need help understandi ng your or your child's healthcare needs (diagnosis, medications, plan, etc.)? No 01/30/2020 Financing Health Concerns Answer Date R ecorded In the last 12 months, was t here a time when your child needed to see a doctor or get medications or supplies but could not because of cost? No 01/30/2020 Missing School or Work Answer Date Rupesh rded Did you or your child miss s chool or work because of a health problem that could have been avoided? No 01/30/2020 Comments No Sex and Gender Information Value Date Recorded Sex Assigned at Female 02/01/2020 12:07 AM EDT Legal Sex Female 4:57 PM EDT Gender Identity Female 02/01/2020 12:07 AM EDT Sexual Orientation Bisexual 02/01/2020 12 :07 AM EDT documented as of this encounter Miscellaneous Notes * Telephone Encounter - Karina Reis NP - 05/09/2021 1:28 PM EDT Pt should have transferred out to adult provider, last attempt to contact by our office to confirm was unsuccessful - JMT * Telephone Encounter - Tracy Mena LPN - 03/17/2021 1:58 PM EDT Pharm requesting refill of junel. Last PE 01/30/2020. Call placed to pt to see if pt transferred outof office, left message to call office. documented in this encounter Plan of Treatment Not on file documented as of this encounter Visit Diagnoses Diagnosis Breakthrough bleeding Metrorrhagia documented in this encounter Care Teams Parking Enforcer Relationship Specialty Start Date End Date Karina Reis NP PCP - General Pediatrics 07/20/20 09/02/22 documented as of this encounter
--- OUTSIDE RECORDS SUMMARY | 2025-03-18 16:06 | XMS_ITS | Clinical Summary ---
Author Organization [facility] Address [address] [place], [place] [id number] Care Team Providers Care Metal Sash Setter Name Role Phone Karina Reis GIULLERMINA Primary Care Provider [phone] Source Comments Please note that some or all of the patient's information could have additional privacy protections. State laws allow health care providers to render certain types of treatment to minors without parental consent. Please do not assume that this information can be shared solely by obtaining just the consent of the patient's parent/guardian. Please determine if all or part of the patient's care was rendered without parent/guardian involvement. And, if so, obtain the minor's consent prior to disclosure.[facility] Social History Tobacco Use Types Packs/Day Years Used Date Smoking Tobacco: Never Assessed Other Needs Answer Date Recorded Anything else about your child you'd like help w ith? Not on file 04/01/2023 Share good news about positive changes: Not on f ile 04/01/2023 Comments Unknown Sex and Gender Information Value Date Recorded Sex Assigned at Not on file Legal Sex Female 6:54 PM EST Gender Identity Not on file Sexual Orientation Not on file Plan of Treatment Health Maintenance Due Date Last Done Comments DTaP/TDAP/TD VACCINES (1 - Tdap) 2006 ADOLESCENT HIV SCREENING 02/08/2012 COVID-19 Vaccine (2023-2 5 season) 2024 INFLUENZA (Season Ended) 2025 NIRSEVIMAB VACCINES UNDER 8 MONTHS Aged Out No longer eligible based on patient's age to complete this topic Insurance [employer] [facility] [employer] H[employer] Care Teams Metal Sash Setter Relationship Specialty Start Date End Date Karina Reis NP PCP - General Nurse Practitioner 08/28/20
--- OUTSIDE RECORDS SUMMARY | 2025-03-18 16:06 | XMS_ITS | Encounter Summary ---
Author Organization [facility] Address [address] [place] [address] Phone Care Team Providers Care Purifying Plant Operator Name Role Phone Karina Reis NP Primary Care Provider Un available Reason for Visit * Reason Onset Date Comments Med Refill 09/27/2020 Encounter Details Date Type Department Care Team (Late st Contact Info) Description 09/27/2020 Refill [facility] [address] [address] Ning Madrigal MD Generalized abdominal pain Social [...] Telephone Encounter - Karina Reis NP - 09/30/2020 7:03 PM EDT Pt requested refill on wrong medication. * Telephone Encounter - Clint Hernandez LPN - 09/29/2020 10:45 AM EDT Pt is requesting a refill on omeprazole. Last PE was 01/30/2020. documented in this encounter Plan of Treatment Not on file documented as of this encounter Visit Diagnoses Diagnosis Generalized abdominal pain Abdominal pain, generalized documented in this encounter Care Teams Purifying Plant Operator Relationship Specialty Start Date End Date Karina Reis NP PCP - General Pediatrics 07/20/20 09/02/22 documented as of this encounter
--- OUTSIDE RECORDS SUMMARY | 2025-03-18 16:06 | XMS_ITS | Clinical Summary ---
Author Organization [facility] Address [address] [place] [phone] Phone Care Team Providers Care Census Taker Name Role Phone Unavailable Primary Care Provider Unavailabl e Allergies No known active allergies Medications polyethylene glycol (MIRALAX) powderIndication s:Slow transit constipation Take 17 g by mouth daily. Stir and dissolve powder into 4 to 8 ounces of beverage and then drink. 500 g 1 8 Active Additional Information Patient not taking.Reported on 08/28/2020 omeprazole 20 MG delayed-release capsuleIndicatio ns:Generalized abdominal pain Take 1 capsule (20 mg total) by mouth 2 (two) times a day. Take medicine one hour before eating. 60 capsule 2 8 Active Additional Information Patient not taking.Reported on 08/28/2020 levETIRAcetam 250 MG tablet 1 Active ondansetron 4 MG tablet TAKE 1 TABLET BY MOUTH EVERY 8 HOURS NEEDED FOR NAUSEA AND VOMITING 1 Active acetaminophen 500 MG tabletIndication s:Laceration of tongue, initial encounter Take 2 tablets (1,000 mg total) by mouth every 6 (six) hours as needed for mild pain or moderate pain. 60 tablet 1 Active .5 1.5-30 MG-MCG per tabletIndication s:Breakthrough bleeding TAKE 1 TABLET BY MOUTH EVERY DAY 28 tablet 2 1 Active Active Problems Problem Noted Date Diagnosed Date Counseling and coordination of care 11/12/2020 Pain involving joint of finger of right hand Overview (08/08/2020): Laceration of R fifth digit involving PIP in 06/2020 requiring sutures which were removed in mid Jun; pt reports inability to perform some ADL's and work due to pain, weakness and limitation in ROM which cause some strain to her R wrist; Assessment & Plan (08/09/2020 12:00 AM EST): Abnormal exam today; discussed with pt option such as hand specialist vs PT; pt opted for PT and if no progress or concerns from PT at time of evaluation will refer to hand specialist; advised pt self schedule with [facility] in [place] as this seems to be the closest to her [facility] Address in [place]; if condition worsens advised pt contact our office to discuss further Menorrhagia with irregular cycle 11/14/2018 Overview (11/14/2018): Controlled with OCPs Assessment & Plan (08/08/2020 5:59 PM EST): Pt denies any sexual activity in her lifetime; spotting & cramping on current OCP and would prefer to go back to original OCP while awaiting to bi architect as pt is 21 1/2 yrs old Dysmenorrhea 12/19/2017 Overview (11/14/2018): Started OCPs 10/2017 for dysmenorrhea Change to Seasonique for q 3 months periods - 10/2018, SO Anxiety 11/14/2017 Overview (11/14/2017): Significant sx of anxiety with one panic attack reported. Referred to [facility] for intake and counseling 11/14/17. Assessment & Plan (08/09/2020 12:08 AM EST): Pt presented for finger pain s/p suture removal in 06/2020; pt expresses concerns about hx of amnesia and disassociation ; warm hand of to Shannan Jackson for further evaluation; pt will be 21 yrs old at the end of January 2021; at this time and limitations with in person BH and pt reporting lack of privacy in her home for virtual visits; mutual decision w/ Shannan that we will bring care for the time being until outpatient therapist start accepting pt's in the office Generalized abdominal pain 06/03/2017 Overview (12/19/2017): Admitted to [facility] 05/23-05/25/17 with abdominal pain and syncope. Eval suggested possible colitis by radiologic findings but she had no hx of diarrhea, no fevers, no elev WBC, and a normal CRP). US showed a R sided dermoid cyst for which she has been referred for f/u with Dr. Arian Junior/ Welding Pantograph Operator (she did not follow up with bi architect). Sx resolved but recurrence of morning abd pain and vomiting 10/2017. Urine HCG neg. Labs rechecked and all are wnl except for slight increase in indirect bili. Has had persistent weight loss. Signs of anxiety as well. Placed on omeprazole 20 mg bid for 4 weeks and referred for counseling which she has set up. F/U with az 01/02 - much improved with a 3 lb wt gain also. To continue on omeprazole 20 mg bid for another 2 months (through 03/04) and then return for recheck and wt check. If she cont to do well she could then stop the omeprazole except to use it prn. Immunizations Immunization Administration Dates Next Due DTaP 5 02/13/2003, 1,1999,08/17,1999 HPV Vaccine 9 Valent 12/24/2015 HPV, Quadrivalent 08/01/2014,05/22/2014 Hep A, ped/adol 12/24/2015,08/01/2014 Hep B, ped/adol 06/20/2000,04/04/2000,1999 Hib (PRP-T) 06/20/2000, 0,1999,04/16 IPV 02/13/2003, 0,1999,04/16 Influenza Split 04/12/2012,04/10/2010 Influenza, injectable, quadrivalent 05/06/2016,1 07/22/2013 Influenza, injectable, quadr ivalent, preservative free 04/02/2020,05/30/2019,08/23/2013 Influenza, injectable, trivalent 04/02/2009 Influenza, intranasal, trivalent 04/13/2011 MMR 02/13/2003,04/04/2000 Meningococcal B Trumenba 01/30/2020,11/14/2018 Meningococcal Conj (Menactra) MCV4P 11/14/2017,0 04/10/2010 Pneumococcal Conjugate 06/20/2000,04/04/2000 Td (adult) (Tenivac), 5 Lf t etanus toxoid, PF, adsorbed 01/30/2020 Tdap 04/10/2010 Varicella 04/02/2009,04/04/2000 Family History Relation Name Status Comments Father Ede Alive Father: Alive a nd well Mother Ibis Alive Mother: Alive a nd well Other Family history of Autism, Family history of Migraines, Family history of Diabetes mellitus, Family history of Obesity, Family history of Elevated cholesterol Sister Huyen Alive Sister: Asthma Social History Tobacco Use Types Packs/Day Years Used Date Smoking Tobacco: Never Smokeless Tobacco: Never Tobacco Cessation:Counseling Given: Yes Comments:Never smoker Alcohol Use Standard Drinks/Week Comments [...] Orientation Bisexual 02/01/2020 12 :07 AM EDT Last Filed Vital Signs Vital Sign Reading Time Taken Comments Blood Pressure 104/74 11/05/2020 11:25 AM EDT Pulse 95 11/05/2020 11:25 AM EDT Temperature 36.2 C (97.1 F) 11/05/2020 11:25 AM EDT Respiratory Rate 16 05/30/2019 10:33 AM EST Oxygen Saturation 100% 05/06/2016 12:00 AM EDT Inhaled Oxygen Concentration - - Weight 46.7 kg (103 lb) 11/05/2020 11:25 AM EDT Height 165.1 cm (5' 5 ) 11/05/2020 11:25 AM EDT Body Mass Index 17.14 11/05/2020 11:25 AM EDT Plan of Treatment Health Maintenance Due Date Last Done Comments Influenza Vaccines (#1) 2025 04/02/20 20, 05/30/2019, 05/06/2016, Additional history exists COVID-19 Vaccine (3 - 2024-2 6 season) 2025 03/25/2021, 03/04/2021 DTaP,Tdap,and Td Vaccines (8 - Td or Tdap) 01/29/2030 01/30/2020, 04/10/2010, 02/13/2003, Additional history exists HIB Vaccines Completed 06/20/2000, 10/17, 1999, Additional history exists Hepatitis B Vaccines Completed 06/20/2000, 04/04/2000, 1999 Pneumococcal Vaccine Completed 06/20/2000, 04/04/20 00 IPV Vaccines Completed 02/13/2003, 10/17, 1999, Additional history exists MMR Vaccines Completed 02/13/2003, 04/04/2000 Varicella Vaccines Completed 04/02/2009, 04/04/2000 HPV Vaccines Completed 12/24/2015, 07/18, 05/22/2014 Hepatitis A Vaccines Completed 12/24/2015, 08/01/19 15 Meningococcal Vaccine Completed 11/14/2017, 010 Men B Vaccine Completed 01/30/2020, 11/14/2018 Procedures * Due to [place] Decoholic law, this organization might not be sharing sensitive test results. Procedure Name Priority Date/Time Associated Diagnosis Comments CHLAMYDIA AND GONORRHEA, AMPLIFIED Routine 01/30/2020 2:30 PM EDT Screening examination for bacterial and spirochetal disease from Last 3 Months or Most Recently Relevant to Health Maintenance Results * Due to [place] [employer] law, this organization might not be sharing sensitive test results. * Chlamydia and Gonorrhoea, Amplified (01/30/2020 2:30 PM EDT) Chlamydia Trachomatis, DNA Probe NEGATIVE (NEG) [facility] Comment: No Chlamydia Trachomatis RNA detected in this patient's sample (REFERENCE RANGE/NORMAL VALUE: NOT DETECTED) Note: This test uses hair boiler- mediated amplification method to detect rRNA from C. Trachomatis URINE GC AMP PROBE NEGATIVE (NEG) [facility] Comment: No Neisseria Gonorrhoeae RNA detected in this patient's sample (REFERENCE RANGE/NORMAL VALUE: NOT DETECTED) NOTE: This test uses hair boiler-mediated amplification method to detect rRNA from N.Gonorrhoeae. A negative result does not preclude infection. In the case of a negative urine result, testing of an endocervical(female) or urethral (male) specimen is recommended if there is high clinical suspicion of infection. Due to very high sensitivity of Nucleic Acid Amplification Test, false positive results may occur. Therefore, specimen handling is extremely important. In patients in whom the disease is unlikely, additional sample for testing should be considered after an initial positive result. The performance characteristics of this test have not been evaluated in children. The Aptima Combo2 assay is not intended for the evaluation of suspected sexual abuse or for other medico-legal indications. The ordering provider should assess if the patient had consensual sex without risk of sexual abuse. Consult the [facility] if needed. Contact phone number . Therapeutic failure or success cannot be determined with the Aptima Combo2 assay since nucleic acid may persist following appropriate antimicrobial therapy. The Centers for Disease Control and Prevention (CDC) recommends confirmatory retesting using culture or a different nucleic acid amplification test when positive results occur, if indicated. Testing performed or reported by [facility], a Service of [facility], [address], [place] [address] Josh Lynne MD, Wireless Team Member Urine 01/30/2020 2:30 PM EDT 01/30/2020 10:41 PM EDT us Karina Reis NP LAB MICROBIOLOGY - GENERA L ORDERABLES Final Result [facility] from Last 3 Months or Most Recently Relevant to Health Maintenance
--- OUTSIDE RECORDS SUMMARY | 2025-03-18 16:06 | XMS_ITS | Encounter Summary ---
Author Organization [facility] Address [address] [place] [address] [place] [phone] Phone Care Team Providers Care English Adjunct Faculty Name Role Phone Karina Reis NP Primary Care Provider Dionna Gilmore MD Primary Care Provider [phone] Marielos Raman RN Unavailable Loren Booth Unavailable [email or web address] Reason for Referral * MRI/CAT Scan - Closed Specialty Diagnoses / Procedures Referred By Shannon quinones Referred To Contact Radiology Diagnoses Speech disturbance, unspecified type Procedures MRI Brain Dionna Gilmore MD [address] [place] [address] Phone: tel: fax: [email or web address] Referral ID Status Reason Start Date Expiration Date Visits Re quested Visits Authorized [id number] Closed 12/21/2022 1 1 Encounter Details Date Type Department Care Team (Late st Contact Info) Description 12/21/2022 Transcribe Orders Virtual Department [address] [place] [address] Dionna Gilmore MD [address] [place] [address] [phone] [email or web address] Speech disturbance, unspecified type (Primary Dx) Social History Tobacco Use Types Packs/Day Years Used Date Smoking Tobacco: Never Assessed Education Answer Date Recorded Are you interested in more education? Not on beny e 11/13/2022 Are you concerned about learning? Not on file 11/13/2022 No 11/13/2022 No 11/13/2022 Digital Access Answer Date Recorded No 12/14/2022 No 12/14/2022 Reliable internet access at home? Not on file 12/14/2022 Device with a working camera? Not on file Comments Unknown Sex and Gender Information Value Date Recorded Sex Assigned at Female 01/15/2021 2:42 PM EDT Legal Sex Female 2:39 PM EDT Gender Identity Female 01/15/2021 2:42 PM EDT Sexual Orientation Bisexual 01/15/2021 2: 42 PM EDT documented as of this encounter Plan of Treatment Not on file documented as of this encounter Results * MRI BRAIN WITH AND WITHOUT CONTRAST (01/22/2023 12:16 PM EDT) Anatomical Region Laterality Modality Head Magnetic Resonan ce 01/23/2023 10:2 5 AM EDT Impressions 01/23/2023 12:58 PM EDT Similar dilated venous structure coursing along the superior aspect of the left tentorium, 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 This finding was better characterized on MRI from 11/04/2020. No evidence of mesial temporal sclerosis or other brain parenchymal epileptogenic focus. Narrative 01/23/2023 12:58 PM EDT MRI BRAIN WITH AND WITHOUT CONTRAST TECHNIQUE: MRI BRAIN WITH AND WITHOUT CONTRAST Multi-sequence, multi-planar MRI of the brain was performed before and after intravenous contrast. COMPARISON: Brain MRI 07/02/2022, brain MRA 11/04/2020. FINDINGS: Brain Parenchyma: Normal. No evidence of acute infarct, mass lesion, or hemorrhage. No evidence of mesial temporal sclerosis. Ventricular System and Extra-Axial Spaces: Normal. No evidence of midline shift or hydrocephalus. Extracranial Structures: Arterial flow voids in the skull base are present. Vessels: There is a dilated venous structure coursing along the superior aspect of the left tentorium (2100:198), which appears to be supplied by any combination of distal left COURT REPORTER branches and/or distal branches of the left middle meningeal artery, which appears similar to prior; this appears to drain into the vein of Bradley. No discrete nidus is evident. Procedure Note Andrew Wells MD - 01/23/2023 MRI BRAIN WITH AND WITHOUT CONTRAST TECHNIQUE: MRI BRAIN WITH AND WITHOUT CONTRAST Multi-sequence, multi-planar MRI of the brain was performed before andafter intravenous contrast. COMPARISON: Brain MRI 07/02/2022, brain MRA 11/04/2020. FINDINGS: Brain Parenchyma: Normal. No evidence of acute infarct, mass lesion, orhemorrhage. No evidence of mesial temporal sclerosis. Ventricular System and Extra-Axial Spaces: Normal. No evidence of midlineshift or hydrocephalus. Extracranial Structures: Arterial flow voids in the skull base arepresent. Vessels: There is a dilated venous structure coursing along the superioraspect of the left tentorium (2100:198), which appears to be supplied byany combination of distal left COURT REPORTER branches and/or distal branches of theleft middle meningeal artery, which appears similar to prior; this appearsto drain into the vein of Bradley. No discrete nidus is evident. 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 No evidence of mesial temporal sclerosis or other brain parenchymalepileptogenic focus. Dionna Gilmore MD IMG MR HEAD/NECK Final Resu lt documented in this encounter Visit Diagnoses Diagnosis Speech disturbance, unspecified type- Primary Speech disturbance, unspecified type documented in this encounter Care Teams English Adjunct Faculty Relationship Specialty Start Date End Date Karina Reis NP [address] [place] [address] PCP - General Pediatrics 01/15/21 01/06/23 Dionna Gilmore MD [address] [place] [address] PCP - General Family Medicine 01/07/23 Marielos Raman RN [address] [place] [phone] [facility] 10/[facility]24 Loren Booth [address] [place] [phone] [email or web address] [facility] Worker 10/16/24 11/05/24 documented as of this encounter Additional Source Comments The information contained in this document represents components of the legal health record. It is not the complete legal health record.[facility]
--- OUTSIDE RECORDS SUMMARY | 2025-03-18 16:06 | XMS_ITS | Clinical Summary ---
Author Organization [facility] Address [address] [place] [phone] Phone Care Team Providers Care Parts Lister Name Role Phone Dionna Gilmore MD Primary Care Provider Marielos Raman RN Unavailable Allergies No known active allergies Medications gabapentin (NEURONTIN) 800 MG tablet Take 800 mg by mouth 3 (three) times a day. Active lamoTRIgine (LAMICTAL) 100 MG IMMEDIATE release tablet Take 100 mg by mouth daily. Active lamoTRIgine (LAMICTAL) 150 MG IMMEDIATE release tablet Take 150 mg by mouth daily. Active traZODone (DESYREL) 50 MG tablet Take 50 mg by mouth nightly at bedtime as needed for sleep. Active meclizine (ANTIVERT) 25 MG tablet Take 25 mg by mouth 3 (three) times a day as needed for nausea. Active rizatriptan (MAXALT-CONVERTIBLE POWER SHOVEL OPERATOR) 10 MG disintegrating tablet TAKE 1 TABLET BY MOUTH NEEDED FOR HEADACHE. MAY REPEAT IN 4 HRS. LIMIT 09/10 HR 12 tablet 4 4 Active Active Problems Patient Care Coordination No te Formatting of this note migh t be different from the original. Patient is high risk for these reasons: seizure disorder; left-sided weakness and pain on arm, leg, face; limited resources and supports. Living Situation: lives with mother and 2 younger siblings Functional Status (ADL's/iADLs): independent with ADLs and iADLs, EXCEPT grocery shopping due to inability to drive self; also needs help with some activities following a seizure, as pt can take a few days to return to baseline at times Family/Social Supports: mother is main emotional support, but mother requires physical help from pt; siblings can be somewhat helpful with physical chores when needed Goals of Care (HCP/Molst): HCP on file Community Supports (e.g. VNA, DME Vendors, Elder Services): none currently Transportation: relies on family for transportation[facility] Medication Management System/Specialized Pharmacy Needs: keeps meds in bottles unless traveling (moves into small pill box) Financial Concerns: no income, waiting on decision from [facility] for disability; receives SNAP benefits Other Supports and Care Needs: none reported No additional problems on file Encounters Date Type Department Care Team Description 03/11/2025 Patient Outreach [facility] [address] [place] [id number] Marielos Raman, RN iCMP Care Plan Update ([facility] Plan of Care Update) 02/12/2025 Patient Outreach [facility] [address] [place] [phone] Marielos Raman, RN iCMP Care Plan Update ([facility] Plan of Care Update) 01/21/2025 Patient Outreach [facility] [address] [place] [id number] Marielos Raman, RN iCMP Care Plan Update ([facility] Plan of Care Update) 12/26/2024 Patient Outreach [facility] [address] [place] [phone] Marielos Raman, RN Care Coordination ([facility] Care Coordination) from Last 3 Months Social History Tobacco Use Types Packs/Day Years Used Date Smoking Tobacco: Never Smokeless Tobacco: Never Tobacco Cessation:Counseling Given: Not Answered Alcohol Use Standard Drinks/Week Comments Yes 0 (1 standard drink = 0.6 oz pure alcohol) Pt reports having a single drink of either wine or liquor or beer up to twice per month. Education Answer Date Recorded Are you interested [...] Orientation Bisexual 01/15/2021 2: 42 PM EDT Last Filed Vital Signs Vital Sign Reading Time Taken Comments Blood Pressure 109/64 03/15/2023 10:12 AM EDT Pulse 82 03/15/2023 10:12 AM EDT Temperature - - Respiratory Rate - - Oxygen Saturation - - Inhaled Oxygen Concentration - - Weight 54.6 kg (120 lb 6.4 oz) 03/15/2023 10:12 AM EDT Height 165 cm (5' 4.96 ) 03/15/2023 10:12 AM EDT Body Mass Index 20.06 03/15/2023 10:12 AM EDT Plan of Treatment Health Maintenance Due Date Last Done Comments DEPRESSION SCREENING 2011 HPV VACCINES (2 - 3-dose series) 01/21/2016 12/24/2015 HEPATITIS A VACCINES (2 of 2 - 2-dose series) 06/24/2016 12/24/2015 HEPATITIS C SCREENING 2017 HIV ONE-TIME SCREENING (18-65 YEARS) 2017 PAP SMEAR 02/08/2020 COVID-19 VACCINE ( season) 2024 03/25/2021, 03/04/2021 INFLUENZA VACCINE (#1) 2025 , 04/02/2020, 05/30/2019, Additional history exists Adult Td,Tdap Booster 01/29/2030 01/30/2020, 010 MENINGOCOCCAL VACCINES (ACWY) Completed 11/14/2017 MENINGOCOCCAL VACCINES (B) Completed 01/30/2020, SMOKING STATUS SCREENING (Once After 26 Yrs) Completed 10/16/2024 HIB VACCINES Aged Out No longer eligi ble based on patient's age to complete this topic PNEUMOCOCCAL VACCINES (0-49 years) Aged Out No longer eligible based on patient's age to complete this topic Medical Devices Not on file Insurance [employer] [facility] [place] [place] [id number] [employer] [facility] [employer] [facility] [facility]CO [employer] [facility]CO [facility] Advance Directives For more information, please contact: [phone] (9AM - 5PM [facility], Tuesday-Tuesday) Documents on File Type Date Recorded Patient Consulting Project Director Expl anation Healthcare Proxy 10/16/2024 3:06 PM Crystal Colon Health care proxy - Lisa Horner 12-21-2022 Healthcare Agents on File Name Relationship Healthcare Agent Relationshi p Communication Crystal Colon Mother .Primary Health Care Agent (Proxy form on file) Care Teams Parts Lister Relationship Specialty Start Date End Date Dionna Gilmore MD PCP - General Family Medicine 01/07/23 Marielos Raman, RN [address] [place] [phone] iCMP Meter Repairer 10/02/24 Additional Source Comments The information contained in this document represents components of the legal health record. It is not the complete legal health record.[facility]
--- OUTSIDE RECORDS SUMMARY | 2025-03-18 16:06 | XMS_ITS | Encounter Summary ---
Author Organization [facility] Address [address] [place] [address] Phone Care Team Providers Care On Site Wastewater Systems Technician Name Role Phone Karina Reis HOURLY MANAGER Primary Care Provider Un available Reason for Visit * Reason Comments Med Refill Encounter Details Date Type Department Care Team (Late st Contact Info) Description 02/14/2019 Refill [facility] [address] [place] [address] Leeanna Ross, GUILLERMINA [address] [facility] [address] [place] [address] Dysmenorrhea Social History Tobacco Use Types Packs/Day Years Used Date Smoking Tobacco: Never Smokeless Tobacco: Never Comments:Never smoker Alcohol Use Standard Drinks/Week Comments No 0 (1 standard drink = 0.6 oz pur e alcohol) Hunger/Food Answer Date Recorded No 11/14/2018 Stable Housing Answer Date Recorded 0 11/14/2018 Transportation Concerns Answer Date Rec orded No 11/14/2018 Hazards in Home Answer Date Recorded No 11/14/2018 Financing Utilities Answer Date Recorde d No 11/14/2018 Safety at Home Answer Date Recorded No 11/14/2018 Outside Support Answer Date Recorded No 11/14/2018 Understanding Health Concerns Answer Da te Recorded No 11/14/2018 Financing Health Concerns Answer Date R ecorded No 11/14/2018 Missing School or Work Answer Date Rupesh rded No 11/14/2018 Comments Unknown Sex and Gender Information Value Date Recorded Sex Assigned at Female 02/01/2020 12:07 AM EDT Legal Sex Female 4:57 PM EDT Gender Identity Female 02/01/2020 12:07 AM EDT Sexual Orientation Bisexual 02/01/2020 12 :07 AM EDT documented as of this encounter Miscellaneous Notes * Telephone Encounter - Ariadna Cruz LPN - 02/14/2019 7:37 AM EDT Refill request for OCP's. Last PE 11/14/18/KAYLEY documented in this encounter Plan of Treatment Not on file documented as of this encounter Visit Diagnoses Diagnosis Dysmenorrhea documented in this encounter Care Teams On Site Wastewater Systems Technician Relationship Specialty Start Date End Date Karina Reis NP PCP - General Pediatrics 07/20/20 09/02/22 documented as of this encounter
--- OUTSIDE RECORDS SUMMARY | 2025-03-18 16:06 | XMS_ITS | Encounter Summary ---
Author Organization [facility] Address [address] [place] [address] Phone Care Team Providers Care Liner Assembler Name Role Phone Karina Reis NP Primary Care Provider Un available Reason for Visit * Reason Comments Med Refill Encounter Details Date Type Department Care Team (Late st Contact Info) Description 11/24/2020 Refill [facility] [address] [place] [address] Karina Reis NP Breakthrough bleeding Social History [...] encounter Miscellaneous Notes * Telephone Encounter - Clint Hernandez LPN - 11/24/2020 10:29 AM EDT [facility] is requesting refill on control. Last PE was 01/30/20 documented in this encounter Plan of Treatment Not on file documented as of this encounter Visit Diagnoses Diagnosis Breakthrough bleeding Metrorrhagia documented in this encounter Care Teams Liner Assembler Relationship Specialty Start Date End Date Karina Reis NP PCP - General Pediatrics 07/20/20 09/02/22 documented as of this encounter
--- OUTSIDE RECORDS SUMMARY | 2025-03-18 16:06 | XMS_ITS | Encounter Summary ---
Author Organization [facility] Address [address] [place] [address] Phone Care Team Providers Care Afternoon Babysitter Name Role Phone Karina Reis SUBSTATION OPERATOR TRANSFORMING Primary Care Provider Un available Encounter Details Date Type Department Care Team (Late st Contact Info) Description 01/11/2012 Documentation [facility] Family Medicine [address] [place] [address] Family Medicine, Physician [address] [place] [address] Social History Tobacco Use Types Packs/Day Years Used Date Smoking Tobacco: Never Assessed Comments Unknown Sex and Gender Information Value Date Recorded Sex Assigned at Female 02/01/2020 12:07 AM EDT Legal Sex Female 4:57 PM EDT Gender Identity Female 02/01/2020 12:07 AM EDT Sexual Orientation Bisexual 02/01/2020 12 :07 AM EDT documented as of this encounter Plan of Treatment Not on file documented as of this encounter Visit Diagnoses Not on filedocumented in this encounter Care Teams Afternoon Babysitter Relationship Specialty Start Date End Date Karina Reis NP PCP - General Pediatrics 07/20/20 09/02/22 documented as of this encounter
--- OUTSIDE RECORDS SUMMARY | 2025-03-18 16:06 | XMS_ITS | Encounter Summary ---
Author Organization [facility] Address [address] [place] [address] Phone Care Team Providers Care Overhauler Bus Truck Name Role Phone Karina Reis NP Primary Care Provider Dionna Gilmore MD Primary Care Provider [phone] Marielos Raman RN Unavailable Loren Booth Unavailable [email or web address] Encounter Details Date Type Department Care Team (Late st Contact Info) Description 12/21/2022 Procedure Pass [facility], [address] [address] Social History Tobacco Use Types Packs/Day Years [...] on filedocumented in this encounter Care Teams Overhauler Bus Truck Relationship Specialty Start Date End Date Karina Reis WIRE PREPARATION WORKER [address] [place] [phone] PCP - General Pediatrics 01/15/21 01/06/23 Dionna Gilmore MD [address] [place] [address] PCP - General Family Medicine 01/07/23 Marielos Raman RN [address] [place] [address] [facility] 10/02/24 Loren Booth [address] [place] [address] [facility] Community Health Worker 10/16/24 11/05/24 documented as of this encounter Additional Source Comments The information contained in this document represents components of the legal health record. It is not the complete legal health record.[facility]
--- OUTSIDE RECORDS SUMMARY | 2025-03-18 16:07 | XMS_ITS | Encounter Summary ---
Author Organization [facility] Address [address] [place] [address] Phone Care Team Providers Care Machine Ii Trimmer Name Role Phone Karina Reis RHEOSTAT ASSEMBLER Primary Care Provider Un available Encounter Details Date Type Department Care Team (Late st Contact Info) Description 03/03/2017 Conversion Encounter [facility] - [address] [address] Social History Tobacco Use Types Packs/Day Years Used Date Smoking Tobacco: Never Comments:Never smoker Comments Unknown Sex and Gender Information Value [...] on filedocumented in this encounter Care Teams Machine Ii Trimmer Relationship Specialty Start Date End Date Karina Reis NP PCP - General Pediatrics 07/20/20 09/02/22 documented as of this encounter
--- OUTSIDE RECORDS SUMMARY | 2025-03-18 16:07 | XMS_ITS | Encounter Summary ---
Author Organization [facility] Address [address] [facility] [address] [place] [address] Phone Care Team Providers Care Clearing Supervisor Name Role Phone Karina Reis NP Primary Care Provider Dionna Gilmore MD Primary Care Provider [phone] Marielos Raman RN Unavailable Loren Booth Unavailable Encounter Details Date Type Department Care Team (Late st Contact Info) Description 12/21/2022 Procedure Pass [facility], [address] [address] Social History Tobacco Use Types Packs/Day Years [...] on filedocumented in this encounter Care Teams Clearing Supervisor Relationship Specialty Start Date End Date Karina Reis CHEF PASSENGER VESSEL [address] [place] [address] PCP - General Pediatrics 01/15/21 01/06/23 Dionna Gilmore MD [address] [place] [address] PCP - General Family Medicine 01/07/23 Marielos Raman RN [address] [place] [address] [facility] 10/02/24 Loren Booth [address] [place] [address] [facility] Community Health Worker 10/16/24 11/05/24 documented as of this encounter Additional Source Comments The information contained in this document represents components of the legal health record. It is not the complete legal health record.[facility]
[2025-03-18] MEDS: Lidocaine HCl Viscous 2 % 15 ML SOLUTION MUCOUS MEM (16:44)
[2025-03-18] MEDS: guaiFEN/Codeine SF 200/20/10ML 10 ML LIQUID PO (16:44)
[2025-03-18 16:47] VITALS: BP 99/75; PULSE 101; RESP 18; TEMP 37.1; O2SAT 98
[2025-03-18 17:09] VITALS: O2SAT 98
[2025-03-18] MEDS: Albuterol Sulfate 90 MCG 8 GM INHALER 2 PUFF INHALE (17:10)
[2025-03-18 17:11] VITALS: BP 102/75; PULSE 102; RESP 17; TEMP 36.7; O2SAT 98
[2025-03-18 17:12] VITALS: PULSE 126; RESP 19; O2SAT 97
== END 2025-03-18 17:30 | disposition home or self-care (01) ==
PROVIDERS: Physician Assistant; Emergency Provider Emergency Medicine; PCP Nurse Practitioner Primary Care
DX: J40 Bronchitis, not specified as acute or chronic (principal); R06.02 Shortness of breath; R05.9 Cough, unspecified; R51.9 Headache, unspecified; R50.9 Fever, unspecified; J02.9 Acute pharyngitis, unspecified
CPT/HCPCS: 36415; 71045; 80053; 84484; 85025; 85610; 85730; 86308; 87502; 87635; 87651; 93005; 94640; 99284; 99285

== ENCOUNTER → 2025-03-18 14:45 | Outpatient (BNV) | payer MEDICAID, SELFPAY | PROVIDERS: Emergency Provider Emergency Medicine; PCP Nurse Practitioner Primary Care; Visit Provider Radiology Diagnostic Radiology | DX: R05.9 Cough, unspecified (principal) | CPT/HCPCS: 71045 ==

== ENCOUNTER → 2025-03-18 14:54 | Outpatient (BNV) | payer MEDICAID, SELFPAY | PROVIDERS: Emergency Provider Emergency Medicine; PCP Nurse Practitioner Primary Care; Visit Provider Internal Medicine Cardiovascular Disease | DX: R00.0 Tachycardia, unspecified (principal) | CPT/HCPCS: 93010 ==

== ENCOUNTER 2025-05-10 11:02 | Emergency (ER) | payer MEDICAID, SELFPAY ==
--- NOTE | ~2025-05-10 | CT_ITS ---
EXAMINATION: CT HEAD WITHOUT IV CONTRAST HISTORY: headache. TECHNIQUE: Unenhanced helical CT of the head was performed per standard departmental protocol. Coronal and sagittal reformats of the head were also evaluated. One or more of the following techniques was used for dose reduction: Automated exposure control, adjustment of the mA and/or kV according to patient size, use of iterative reconstruction technique. DLP: 646 mGy-cm COMPARISON: There are no prior studies available for comparison. FINDINGS: BRAIN: The brain parenchyma is unremarkable. There is normal thomas/white differentiation. The ventricular system is normal in size and configuration. There is no mass effect or midline shift. No intra- or extra-axial fluid collections are identified. SINUSES: The visualized paranasal sinuses are clear. The mastoid air cells and middle ear cavities are well pneumatized. ORBITS: The visualized orbits are unremarkable. BONES/SOFT TISSUES: The extracranial soft tissues are unremarkable. The calvarium is intact. No suspicious lytic or sclerotic lesions. CT/CT head/brain wo IV con IMPRESSION: No acute intracranial abnormality. Electronically signed by: Yang Molina MD 05/10/2025 02:49 PM EDT
[2025-05-10 11:18] VITALS: BP 104/73; BP 108/66; PULSE 112; PULSE 120; RESP 18; TEMP 36.9; O2SAT 97; O2SAT 98; BMI 22.7
--- NOTE | 2025-05-10 11:31 | PC.NURSE ---
pt is alert and oriented, skin appropriate for ethnicity, respirations even and unlabored, ls clear, pt had two witnessed seizures at home while on her bed, tonic clonic, was post ictal on see per ems, pt reports that she had an aura last night and took an ativan last night, pt does take lamotrigine for her seizures, seizure pasds in place and sinus tach on the monitor, pt is reporting a headache
--- NOTE | 2025-05-10 11:49 | ECG_ITS ---
Test Reason : SYNCOPE Blood Pressure : */* mmHG Vent. Rate : 94 BPM Atrial Rate : 94 BPM P-R Int : 184 ms QRS Dur : 74 ms QT Int : 342 ms P-R-T Axes : 59 75 32 degrees QTcB Int : 427 ms Normal sinus rhythm Nonspecific T wave abnormality Abnormal ECG When compared with ECG of 18-Mar-2025 15:22, No significant change was found Referred By: Maira Powell Electronically Signed By: SANDY BAUM MD
[2025-05-10] MEDS: diazePAM 10 MG/2 ML CARTRIDGE 2.5 MG IVPUSH (12:08)
[2025-05-10 12:11] LABS: MANUAL DIFF FLAG NO
--- NOTE | 2025-05-10 12:13 | ED.SEIZURE ---
HPI - Seizure General Chief Complaint: Seizure Stated Complaint: SEIZURE X 2,HX SEIZURES,POSTICTAL RESOLVED PER EMS Time Seen by Provider: 05/10/25 11:40 Source: patient, EMS and old records reviewed Mode of arrival: EMS Limitations: no limitations History of Present Illness ED Provider: ALLAN HPI Narrative: 25 yo female with PMH hx of seizures has not had one in a few years she is compliant with her lamictal and ativan. She notes she never sleeps well. She got up this AM and took her medications she then got an aura told her family and had witnessed GTC seizure x 2. The event lasted about 3 minutes. She had a normal day yesterday. Postical on arrival, no tongue biting, no head trauma. MD complaint: seizure Onset (ago): minute(s) (INVESTIGATION SPECIALIST) Description of Episode: loss of consciousness and tonic-clonic movement Duration of episode: 3 -: minutes(s) Witnessed: Yes - by Bystander Trauma: No Seizure History: Yes Place: Home Possible Precipitating Event: none Associated symptoms: other (has headache after which is normal for her) Treatments prior to arrival: none Related Data Home Medications ?Medication ?Instructions ?Recorded ?Confirmed norethindrone 1.5 mg-ethinyl 1 tab PO DAILY 11/03/20 11/03/20 estradiol 30 mcg(21)/iron 75 mg(7) tablet ( FE ()) Previous Rx's ?Medication ?Instructions ?Recorded levetiracetam 250 mg tablet 250 mg PO BID #60 tabs 11/04/20 (Keppra) nitrofurantoin 100 mg PO Q12H 7 days #14 caps 07/16/22 monohydrate/macrocrystals 100 mg capsule (Macrobid) lorazepam 1 mg tablet (Ativan) 1 mg PO BEDTIME PRN sleep #14 tabs 12/11/22 oxycodone 5 mg tablet 5 mg PO Q6H PRN pain #10 tabs 12/11/22 azithromycin 250 mg tablet See Rx Instructions PO .COMPLEX #6 03/18/25 tabs benzonatate 200 mg capsule 200 mg PO TID PRN cough 5 days #15 03/18/25 caps lorazepam 1 mg tablet (Ativan) 1 mg PO DAILY #10 tabs 05/10/25 Allergies Allergy/AdvReac Type Severity Reaction Status Date / Time No Known Allergies (No Known Allergy Verified 05/10/25 11:22 Allergies*) Review of Systems Review of Systems: Constitutional : No Fever, No Chills, No Fatigue ENT/Mouth : No sore throat, No Rhinorrhea Eyes: No Eye Pain, No Swelling, No Redness Cardiovascular : No Chest Pain, No SOB, No Dyspnea on Exertion Respiratory : No Cough, No Sputum Gastrointestinal : No Nausea, No Vomiting, No Diarrhea, No abdominal Pain Genitourinary : No Dysuria, No Urinary Frequency, No Hematuria, Musculoskeletal : No joint pain, No Myalgias, No Joint Swelling Skin : No Skin Lesions, No rash Neuro : No Weakness, No Numbness, No Dizziness, positive Headache Psych : No Anxiety/Panic, No Depression Heme/Lymph: No Bruising, No Bleeding,No Lymphadenopathy Endocrine : No Polyuria, No Polydipsia All other systems reviewed and are negative [facility] Past Medical History Attestation statement: The following information was validated with the patient. Source: old records reviewed Medical History (Updated 05/10/25 @ 15:28 by Maira Powell DO) Seizure Social History Social History Household Members: Family Housing: House Do you presently have visiting nurse or other home services: No Alcohol intake: current Alcohol intake frequency: holidays/special occasions only Alcohol type: other Smoked in Last 30 Days: No Use of substances other than those prescribed or required for medical reasons: No Advance Directives: Yes Advance Directives Information Provided: Yes Advance Directives on File: No Do you have a plan to hurt others: No Plan service: No Current occupational status: employed Physical Exam Vital Signs: Vital Signs: Last Vital Signs Temp 98.4 F 05/10/25 15:33 Pulse 85 05/10/25 15:33 Resp 18 05/10/25 15:33 BP 101/61 05/10/25 15:33 Pulse Ox 97 05/10/25 15:33 O2 Del Method Room Air 05/10/25 15:33 BMI result Body Mass Index 22.7 Appearance: Alert. Oriented X3. No acute distress. Eyes: Pupils equal, round and reactive to light. ENT: Pharynx normal. mild tongue abrasions Neck: Normal inspection. Neck supple. CVS: Normal heart rate and rhythm. Pulses normal. Respiratory: No respiratory distress. Breath sounds normal. Abdomen: Soft and nontender. Skin: Skin warm and dry. Normal skin color. Normal skin turgor. Extremities: No lower extremity edema. No calf ttp Neuro: Oriented X 3. No motor deficit. No sensory deficit. Medications Administered Discontinued Medications Generic Name Dose Route Start Last Admin Trade Name Maurizio PRN Reason Stop Dose Admin Diazepam 2.5 mg 05/10/25 11:49 05/10/25 12:08 Diazepam 10 Mg/2 Ml Cartridge IVPUSH 05/10/25 11:50 2.5 mg STAT STA Administration Acetaminophen 1,000 mg in 100 mls @ 400 mls/hr 05/10/25 11:49 05/10/25 12:25 Ofirmev IV 05/10/25 12:03 Infused ONCE ONE Infusion Ketorolac Tromethamine 15 mg 05/10/25 13:27 05/10/25 13:52 Ketorolac Tromethamine 15 Mg/Ml Vial IVPUSH 05/10/25 13:28 15 mg ONCE ONE Administration Lorazepam 1 mg 05/10/25 15:14 05/10/25 15:34 Lorazepam 1 Mg Tablet PO 05/10/25 15:15 1 mg ONCE ONE Administration Medical Decision Making Medical Decision Making MDM Narrative: 25 yo female with PMH hx of seizures with seizure today but no trauma she is compliant with her medications - will obtain EKG, labs, start IV valium and treat her headache she has no preceding headache and no head trauma - she has a hx of post seizure headaches doubt mass/ICH. Differential Diagnosis Differential Diagnoses: The differential diagnosis associated with the presentation includes seizure, lyte abnormality Admission/Observation Consideration of admission/observation: Escalation of care including admission/observation considered feels better stable for DC will increase ativan BID 1mg until she sees her Neurologist she is comfortable with this plan and agrees Lab Data MDM Lab Attestation statement: I reviewed the patient's lab results. 05/10/25 12:08 05/10/25 12:08 Labs: Lab Results 05/10/25 Range/Units 12:08 WBC 9.5 (4.8-10.8) X10*3/uL RBC 4.39 (4.20-5.50) X10*6/uL Hgb 12.5 (12.0-16.0) g/dl Hct 37.8 (37.0-47.0) % MCV 86.1 (80.0-98.0) fL MCH 28.5 (27.0-33.0) pg MCHC 33.1 (31.0-35.0) g/dl RDW 12.4 (11.0-16.0) % Plt Count 273 (160-400) X10*3/uL MPV 9.2 L (9.4-12.3) fL Immature Gran % (Auto) 0.3 (0.0-0.4) % Neut % (Auto) 76.7 H (45-73) % Lymph % (Auto) 14.1 L (20-40) % [place] % (Auto) 7.9 (2-11) % Eos % (Auto) 0.6 (0-4) % Baso % (Auto) 0.4 (0-2) % Lymph # (Auto) 1.3 (1.2-4.9) X10*3/uL [place] # (Auto) 0.8 (0.1-1.2) X10*3/uL Eos # (Auto) 0.1 (0.0-0.4) X10*3/uL Baso # (Auto) 0.0 (0.0-0.2) X10*3/uL Abs Immat Gran (auto) 0.03 (0.00-0.03) X10*3/uL Absolute Neuts (auto) 7.3 (2.0-8.3) x10*3/uL Absolute Nucleated RBC 0.000 (0.0-0.012) X10*3/uL Nucleated RBC % (auto) 0.0 (0.0-0.2) /100WBC Sodium 138 (135-145) mmol/L Potassium 3.7 (3.3-5.1) mmol/L Chloride 106 (96-108) mmol/L Carbon Dioxide 26 (22-29) mmol/L Anion Gap 10 L (12-20) BUN 8 L (9-16) mg/dL Creatinine 0.66 (0.5-1.4) mg/dL Estim Creat Clear Calc 120.9 Estimated GFR > 60 Random Glucose 98 (60-115) mg/dL Calcium 8.8 D (8.4-10.2) mg/dL Magnesium 1.9 (1.6-2.6) mg/dL Total Bilirubin 1.5 H (0.0-1.0) mg/dL Direct Bilirubin 0.5 (0.0-0.5) mg/dL AST 21 (5-31) U/L ALT 9 (0-31) U/L Alkaline Phosphatase 62 (39-117) U/L Total Protein 7.5 (6.5-8.0) g/dL Albumin 4.2 (3.5-5.0) g/dL Beta HCG, Quant < 2 mIU/mL Independent Interpretation I performed an independent interpretation of an: EKG and CT Scan (normal) Interpretation: Rate: 94 Rhythm: NSR [place]: normal Normal P waves. Normal DANNIELLE. Normal QRS complex. ST T wave : inverted t waves V1, V2, no JOHAN qTC: 427 prior studies: no acute ischemia The study has been interpreted contemporaneously by me. . Radiology Impression Discussion of test interpretation with radiology: I have reviewed the radiologist's reading. Independent Historian Clinical information obtained from an independent historian. History obtained from or confirmed by: EMS External Record Review External record reviewed: Outpatient record Prescription Management I considered prescription management with: Other Discharge Plan Discharge Clinical Impression: Generalized seizure Instructions: Recurrent Seizures in Adults (ED) Additional Instructions: rest and stay hydrated stay with responsible adult in 24 hours, no swimming alone, no cooking over open flames, no driving until cleared continue your medications start ativan 1mg BID until you see your neurologist - please call for appointment Prescriptions: New lorazepam [Ativan] 1 mg tablet 1 mg PO DAILY Qty: 10 0RF Rx Instructions: additional seizure coverage No Action norethindrone-e.estradiol-iron [.5/ (28)] 1.5 mg-30 mcg (21)/75 mg (7) tablet 1 tab PO DAILY levetiracetam [Keppra] 250 mg tablet 250 mg PO BID Qty: 60 1RF nitrofurantoin monohyd/m-cryst [Macrobid] 100 mg capsule 100 mg PO Q12H 7 Days Qty: 14 0RF Rx Instructions: must administer with a meal/food lorazepam [Ativan] 1 mg tablet 1 mg PO BEDTIME PRN (Reason: sleep) Qty: 14 0RF oxycodone 5 mg tablet 5 mg PO Q6H PRN (Reason: pain) Qty: 10 0RF Rx Instructions: Partial Fill upon patient request. benzonatate 200 mg capsule 200 mg PO TID PRN (Reason: cough) 5 Days Qty: 15 0RF azithromycin 250 mg tablet See Rx Instructions .ROUTE .COMPLEX Qty: 6 0RF Rx Instructions: For 250 mg dose pack: take 500 mg today (day 1), then 250 mg for 4 days (days 2-5) Print Language: Congolese
[2025-05-10 12:17] LABS: Hematocrit 37.8 % (37.0-47.0); Hemoglobin 12.5 g/dl (12.0-16.0); Imm Gran Abs Auto 0.03 X10*3/uL (0.00-0.03); Imm Gran Pct Auto 0.3 % (0.0-0.4); Lymphocytes Absolute Auto 1.3 X10*3/uL (1.2-4.9); Mean Corpuscular HGB Conc 33.1 g/dl (31.0-35.0); Mean Corpuscular Hemoglobin 28.5 pg (27.0-33.0); Mean Corpuscular Volume 86.1 fL (80.0-98.0); NRBC Abs Auto 0.000 X10*3/uL (0.0-0.012); NRBC Pct Auto 0.0 /100WBC (0.0-0.2); Platelet Count 273 X10*3/uL (160-400); Red Blood Count 4.39 X10*6/uL (4.20-5.50); White Blood Count 9.5 X10*3/uL (4.8-10.8)
[2025-05-10 12:40] LABS: Alanine Aminotransferase 9 U/L (0-31); Albumin Level 4.2 g/dL (3.5-5.0); Alkaline Phosphatase 62 U/L (39-117); Anion Gap 10 (12-20); Aspartate Amino Transferase 21 U/L (5-31); Blood Urea Nitrogen 8 mg/dL (9-16); Calcium 8.8 mg/dL (8.4-10.2); Carbon Dioxide 26 mmol/L (22-29); Chloride 106 mmol/L (96-108); Creatinine Clr Calc Pharmacy 120.9; Estimated Glomerular Filt Rate > 60; Magnesium 1.9 mg/dL (1.6-2.6); Potassium 3.7 mmol/L (3.3-5.1); Sodium 138 mmol/L (135-145); Total Protein 7.5 g/dL (6.5-8.0)
--- NOTE | 2025-05-10 12:50 | PC.NURSE ---
pt reports no improvement in the head pain after the medication, pain at 7/10
[2025-05-10 13:52] VITALS: BP 103/69; PULSE 86; RESP 16
--- OUTSIDE RECORDS SUMMARY | 2025-05-10 14:42 | XMS_ITS | Encounter Summary ---
Author Organization [facility] Address [address] [place] [address] Phone Care Team Providers Care Wardrobe Specialist Name Role Phone Karina Reis NP Primary Care Provider Un available Reason for Visit * Reason Comments Med Refill Encounter Details Date Type Department Care Team (Late st Contact Info) Description 11/24/2020 Refill [facility] [address] [place] [address] Karina Reis NP Breakthrough bleeding Social History [...] Metrorrhagia documented in this encounter Care Teams Wardrobe Specialist Relationship Specialty Start Date End Date Karina Reis NP PCP - General Pediatrics 07/20/20 09/02/22 documented as of this encounter
--- OUTSIDE RECORDS SUMMARY | 2025-05-10 14:42 | XMS_ITS | Encounter Summary ---
Author Organization [facility] Address [address] [place] [address] Phone Care Team Providers Care Auditor Medical Claims Name Role Phone Karina Reis NP Primary Care Provider Un available Reason for Visit * Reason Onset Date Comments Med Refill 09/27/2020 Encounter Details Date Type Department Care Team (Late st Contact Info) Description 09/27/2020 Refill [facility] [address] [address] Ning Madrigal MD Generalized abdominal pain Social [...] generalized documented in this encounter Care Teams Auditor Medical Claims Relationship Specialty Start Date End Date Karina Reis NP PCP - General Pediatrics 07/20/20 09/02/22 documented as of this encounter
--- OUTSIDE RECORDS SUMMARY | 2025-05-10 14:42 | XMS_ITS | Encounter Summary ---
Author Organization [facility] Address [address] [place] [address] Phone Care Team Providers Care Ecological Technical Officer Name Role Phone Karina Reis NP Primary Care Provider Un available Reason for Visit * Reason Onset Date Comments Med Refill Med Refill 05/13/2021 Encounter Details Date Type Department Care Team (Late st Contact Info) Description 03/15/2021 Refill [facility] [address] [address] Karina Reis NP Breakthrough bleeding Social History [...] Metrorrhagia documented in this encounter Care Teams Ecological Technical Officer Relationship Specialty Start Date End Date Karina Reis NP PCP - General Pediatrics 07/20/20 09/02/22 documented as of this encounter
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
--- OUTSIDE RECORDS SUMMARY | 2025-05-10 14:42 | XMS_ITS | Encounter Summary ---
Author Organization [facility] Address [address] [place] [address] Phone Care Team Providers Care Clerical Proofreader Name Role Phone Karina Reis PRODUCT SUPPORT REP Primary Care Provider Un available Encounter Details Date Type Department Care Team (Late st Contact Info) Description 01/11/2012 Documentation [facility] [place] [place] Family Medicine [address] [place] [address] Family Medicine, Physician [address] [place] [address] Social History Tobacco Use Types Packs/Day Years [...] on filedocumented in this encounter Care Teams Clerical Proofreader Relationship Specialty Start Date End Date Karina Reis NP PCP - General Pediatrics 07/20/20 09/02/22 documented as of this encounter
--- OUTSIDE RECORDS SUMMARY | 2025-05-10 14:42 | XMS_ITS | Encounter Summary ---
Author Organization [facility] Address [address] [facility] [address] [place] [address] Phone Care Team Providers Care Tools And Parts Attendant Name Role Phone Dionna Gilmore MD Primary Care Provider [phone] Marielos Raman RN Unavailable Reason for Visit * Reason Onset Date Comments [facility] Care Plan Update 05/10/2025 CARE Kaleb ss Plan of Care Update Encounter Details Date Type Department Care Team (Late st Contact Info) Description 05/10/2025 Patient Outreach [facility] - Primary Care [address] [place] [address] Marielos Raman, RN [address] [place] [address] [email or web address] [facility] Care Plan Update (CARE [facility]ass Plan of Care Update) Social History Tobacco Use Types Packs/Day Years Used Date Smoking Tobacco: Never Smokeless Tobacco: Never Alcohol Use Standard Drinks/Week Comments Yes 0 [...] PM EDT documented as of this encounter Miscellaneous Notes * Plan of Care - Marielos Raman RN - 05/10/2025 12:35 PM EDT CARE COMPASS RN CARE COORDINATION NOTE Note Subject: [facility] Plan of Care Note 05/10/2025: Called pt to check in after recently scheduled MRI and to assist pt if needed with nextsteps of treatment plan. Unable to reach pt. Left message asking for a call back. PLAN/INTERVENTIONS: - POC goal(s)reviewed and updated - SMP discussed and sent to patient: Not Indicated at this encounter Plan of Care Unable to update POC today, as pt could not be reached. documented in this encounter Plan of Treatment Not on file documented as of this encounter Visit Diagnoses Not on filedocumented in this encounter Care Teams Tools And Parts Attendant Relationship Specialty Start Date End Date Dionna Gilmore MD PCP - General Family Medicine 01/07/23 Marielos Raman RN [address] [place] [address] PHC Hand Cooper Helper 10/02/24 documented as of this encounter Additional Source Comments The information contained in this document represents components of the legal health record. It is not the complete legal health record.[facility]
--- OUTSIDE RECORDS SUMMARY | 2025-05-10 14:43 | XMS_ITS | Encounter Summary ---
Author Organization [facility] Address [address] [place] [address] Phone Care Team Providers Care Dry Kiln Loader Name Role Phone Karina Reis BARREL ENDSHAKER ADJUSTER Primary Care Provider Un available Reason for Visit * Reason Comments Med Refill Encounter Details Date Type Department Care Team (Late st Contact Info) Description 02/11/2018 Refill [facility] - [address] [address] Ning Madrigal MD Generalized abdominal pain Social [...] generalized documented in this encounter Care Teams Dry Kiln Loader Relationship Specialty Start Date End Date Karina Reis NP PCP - General Pediatrics 07/20/20 09/02/22 documented as of this encounter
--- OUTSIDE RECORDS SUMMARY | 2025-05-10 14:43 | XMS_ITS ---
Author Organization [facility] Address [address] [place] [address] [place] [address] Phone Care Team Providers Care Artist Manager Name Role Phone Dionna Gilmore MD Primary Care Provider [phone] Marielos Raman RN Unavailable Population Health Care Management (PHCM) Status:Enrolled (Active) Start date:10/02/2024 Enrollment date:10/02/2024 Current support & services provided:[facility]ARE [facility]PASS Related social drivers of health:Housing Stability, Child or Family Care, Education, Food, Unemployment, Paying for Meds, Paying Utility Bills, Transportation, Digital Access, SNAP/WIC Case Team Name Relationship Phone Email Marielos Raman RN Registered Nurse(Responsible Staff) [phone] Jeanna Young PHCM Women'S Soccer Coach [email or web address] Continued Care and Services Coordination
--- OUTSIDE RECORDS SUMMARY | 2025-05-10 14:43 | XMS_ITS | Encounter Summary ---
Author Organization [facility] Address [address] [facility] [address] [place] [address] Phone Care Team Providers Care Regulation Supervisor Name Role Phone Dionna Gilmore MD Primary Care Provider [phone] Marielos Raman RN Unavailable Reason for Referral * Consultation (Within 3 days (urgent)) - New Request Specialty Diagnoses / Procedures Referred By Shannon quniones Referred To Contact Gastroenterology Dionna Gilmore MD [address] [place] [address] Phone: tel: fax: [email or web address] [email or web address] [address] Phone: tel: Referral ID Status Reason Start Date Expiration Date V isits Requested Visits Authorized [id number] New Request 05/06/2025 05/06/2026 1 1 Encounter Details Date Type Department Care Team (Late st Contact Info) Description 05/06/2025 Transcribe Orders [facility] [address] [place] [address] Dionna Gilmore MD [address] [place] [address] [phone] Social History Tobacco Use Types Packs/Day Years [...] as of this encounter Plan of Treatment Scheduled Referrals Name Type Priority Associated Diagnoses Order Schedule Ambulatory Referral to [facility] Gastroenterology Outpatient Referral Routine Ordered: 05/06/2025 documented as of this encounter Visit Diagnoses Not on filedocumented in this encounter Care Teams Regulation Supervisor Relationship Specialty Start Date End Date Dionna Gilmore MD juan PCP - General Family Medicine 01/07/23 Marielos Raman, CHELSIE [address] [place] [address] PHCM Educational Technology Specialist 10/02/24 documented as of this encounter Additional Source Comments The information contained in this document represents components of the legal health record. It is not the complete legal health record.[facility]
--- OUTSIDE RECORDS SUMMARY | 2025-05-10 14:43 | XMS_ITS | Clinical Summary ---
Author Organization [facility] Address [address] [place], [place] [phone] Care Team Providers Care Blower Mechanic Name Role Phone Karina Reis GUILLERMINA Primary Care Provider [phone] Source Comments Please note that some or [...] so, obtain the minor's consent prior to disclosure.[facility] Social History Tobacco Use Types Packs/Day [...] SCREENING 02/08/2012 COVID-19 Vaccine (2023-2 5 season) 2025 INFLUENZA (#1) 2025 NIRSEVIMAB VACCINES UNDER 8 MONTHS Aged Out No longer eligible based on patient's age to complete this topic Insurance * Guarantor: Lisa Horner Account Type Relation to Patient Date of Phone Billing Address Personal/Family Self [address] [place] [address] [facility] HMO Care Teams Blower Mechanic Relationship Specialty Start Date End Date Karina Reis NP PCP - General Nurse Practitioner 08/28/20
--- OUTSIDE RECORDS SUMMARY | 2025-05-10 14:43 | XMS_ITS | Encounter Summary ---
Author Organization [facility] Address [address] [place] [address] Phone Care Team Providers Care Dermatology Physician Assistant Name Role Phone Karina Reis CONTENT STRATEGIST Primary Care Provider Un available Reason for Visit * Reason Comments Med Refill Encounter Details Date Type Department Care Team (Late st Contact Info) Description 02/14/2019 Refill [facility] [address] [place] [address] Leeanna Ross, GUILLERMINA [address] [facility] [address] [place] [address] Dysmenorrhea Social History Tobacco Use Types Packs/Day [...] Dysmenorrhea documented in this encounter Care Teams Dermatology Physician Assistant Relationship Specialty Start Date End Date Karina Reis NP PCP - General Pediatrics 07/20/20 09/02/22 documented as of this encounter
--- OUTSIDE RECORDS SUMMARY | 2025-05-10 14:43 | XMS_ITS | Encounter Summary ---
Author Organization [facility] Address [address] [place] [address] Phone Care Team Providers Care Intellectual Property Manager Name Role Phone Karina Reis STRIP PRESSER Primary Care Provider Un available Encounter Details Date Type Department Care Team (Late st Contact Info) Description 03/03/2017 Conversion Encounter [facility] - [address] [address] Social History Tobacco Use Types Packs/Day Years [...] on filedocumented in this encounter Care Teams Intellectual Property Manager Relationship Specialty Start Date End Date Karina Reis NP PCP - General Pediatrics 07/20/20 09/02/22 documented as of this encounter
--- OUTSIDE RECORDS SUMMARY | 2025-05-10 14:43 | XMS_ITS | Encounter Summary ---
Author Organization [facility] Address [address] [place] [address] [place] [address] Phone Care Team Providers Care Bridge Inspector Name Role Phone Karina Reis APRN Primary Care Provide r Dionna Gilmore MD Primary Care Provider [phone] Marielos Raman RN Unavailable Loren Booth Unavailable [email or web address] Loren Booth Unavailable [email or web address] Reason for Referral * MRI/CAT Scan - Closed Specialty Diagnoses / Procedures Referred By Shannon quinones Referred To Contact Radiology Diagnoses Speech disturbance, unspecified type Procedures MRI Brain Dionna Gilmore MD [address] [place] [address] Phone: tel: fax: [email or web address] Referral ID Status Reason Start Date Expiration Date Visits Re quested Visits Authorized [id number] Closed 12/21/2022 1 1 Encounter Details Date Type Department Care Team (Late st Contact Info) Description 12/21/2022 Transcribe Orders [facility] Department [address] [place] [address] Dionna Gilmore MD [address] [place] [address] [phone] [email or web address] Speech disturbance, unspecified type (Primary Dx) Social [...] supplied by any combination of distal left ELECTRICAL PRODUCTS SALES ENGINEER branches and/or distal branches of the left [...] supplied by any combination of distal left ELECTRICAL PRODUCTS SALES ENGINEER branches and/or distal branches of the left [...] be supplied byany combination of distal left ELECTRICAL PRODUCTS SALES ENGINEER branches and/or distal branches of theleft middle meningeal artery, which appears similar to prior; this appearsto drain into the vein of Bradley. No discrete nidus is evident. 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 No evidence of mesial temporal sclerosis or other brain parenchymalepileptogenic focus. us Dionna Gilmore MD IMG MR HEAD/NECK Final Resu lt documented in this encounter Visit Diagnoses Diagnosis Speech disturbance, unspecified type- Primary Speech disturbance, unspecified type documented in this encounter Care Teams Bridge Inspector Relationship Specialty Start Date End Date ChatoMarlaKarinacherrie Laura APRN [address] [place] [address] PCP - General Pediatrics 01/15/21 01/06/23 Dionna Gilmore MD [address] [place] [address] PCP - General Family Medicine 01/07/23 Marielos Raman RN [address] [place] [address] PHC Infusion Pharmacist 10/02/24 Loren Booth [address] [place] [phone] [facility] Community Health Worker 10/16/24 11/05/24 Loren Booth [address] [place] [address] [email or web address] Community Health Worker 03/21/25 5 documented as of this encounter Additional Source Comments The information contained in this document represents components of the legal health record. It is not the complete legal health record.[facility]
--- OUTSIDE RECORDS SUMMARY | 2025-05-10 14:43 | XMS_ITS | Clinical Summary ---
Author Organization [facility] Address [address] [facility] [address] [place] [address] Phone Care Team Providers Care Accounting Administrator Name Role Phone Dionna Gilmore MD Primary [...] day as needed for nausea. Active rizatriptan (MAXALT-ON AIR TALENT) 10 MG disintegrating tablet TAKE 1 TABLET [...] currently Transportation: relies [facility] family for [facility] Medication Management System/Specialized Pharmacy Needs: keeps meds in bottles unless traveling (moves into small pill box) Financial Concerns: no income, waiting on decision from [facility] for disability; receives [employer] and SNAP benefits Other Supports and Care Needs: Enrolled in CARE Compass (initially under name Integrated Care Management Program) since 10/16/2024; [facility] ID [id number] for transportation and other service needs No additional problems on file Encounters Date Type Department Care Team Description 05/10/2025 Patient Outreach [facility] [address] [place] [address] Marielos Raman RN iCMP Care Plan Update (CARE Compass Plan of Care Update) 05/06/2025 Transcribe Orders [facility] [address] [place] [address] Dionna Gilmore MD 04/30/2025 Patient Outreach [facility] Primary [address] [address] Loren Booth Care Coordination (Care Compass CHW) 04/15/2025 [facility] RISK SCORES SYSTEM GENERATED External System Generated Encounter [address] [place] [address] Unknown, Unknown, 04/15/[address] [address] 04/11/2025 Patient Outreach [facility] [address] [place] [address] Marielos Raman, RN iCMP Care Plan Update (iCM Plan of Care Update) 04/02/2025 Patient Outreach [facility] [address] [place] [address] Loren Booth Care Shannen 03/26/2025 Patient Outreach [facility] [address] [place] [address] Loren Booth Care Coordination 03/21/2025 Patient Outreach [facility] [address] [place] [address] Marielos Raman, CHELSIE Post Discharge Follow Up Call ([facility] post discharge assessment); iCMP Care Plan Update (iCM Plan of Care Update) 03/11/2025 Patient Outreach [facility]NAG[facility] [address] [place] [address] Marielos Raman, RN iCMP Care Plan Update ([facility] Plan of Care Update) 02/12/2025 Patient Outreach [facility]NAG[facility] [address] [place] [address] Marielos Raman, CHELSIE iCMP Care Plan Update ([facility] Plan of Care Update) from Last 3 Months Social History Tobacco [...] SCREENING (18-65 YEARS) 2017 PAP SMEAR 02/08/2020 INFLUENZA VACCINE (#1) 2025 , 04/02/2020, 05/30/2019, Additional history exists COVID-19 VACCINE ( season) 2025 03/25/2021, 03/04/2021 Adult Td,Tdap Booster 01/29/2030 01/30/2020, 010 MENINGOCOCCAL [...] topic Medical Devices Not on file Insurance [facility] [employer] [facility] [place] [address] [place] [address] [facility]S [facility] [place] [address] [place] [address] [facility] Advance Directives For more information, please contact: [phone] (9AM - 5PM Nancy/[facility], Tuesday-Tuesday) Documents on File Type Date Recorded Patient Billing Services Manager Expl anation Healthcare Proxy 10/16/2024 3:06 PM Crystal Colon Health care proxy - Lisa Horner 12-21-2022 Healthcare Agents on File Name Relationship Healthcare Agent Relationshi p Communication Crystal Colon Mother .Primary Health Care Agent (Proxy form on file) Care Teams Accounting Administrator Relationship Specialty Start Date End Date Dionna Gilmore MD PCP - General Family Medicine 01/07/23 Marielos Raman, RN [address] [place] [address] [facility] Laborer Brooder Farm 10/02/24 Additional Source Comments The information contained in this document represents components of the legal health record. It is not the complete legal health record.[facility]
--- OUTSIDE RECORDS SUMMARY | 2025-05-10 14:43 | XMS_ITS | Encounter Summary ---
Author Organization [facility] Address [address] [facility] [address] [place] [address] Phone Care Team Providers Care Senior Integration Architect Name Role Phone Karina Reis APRN Primary Care Provide r Dionna Gilmore MD Primary Care Provider Marielos Raman RN Unavailable Loren Booth [email or web address] [email or web address] Loren Booth Unavailable Encounter Details Date Type Department Care Team (Late st Contact Info) Description 12/21/2022 Procedure Pass [facility], [address] [address] Social History Tobacco Use Types Packs/Day Years [...] on filedocumented in this encounter Care Teams Senior Integration Architect Relationship Specialty Start Date End Date Chato, Karinacherrie Laura APRN [address] [place] [address] PCP - General Pediatrics 01/15/21 01/06/23 Dionna Gilmore MD [address] [place] [address] PCP - General Family Medicine 01/07/23 Marielos Raman RN [address] [place] [phone] PHCM Patient Care Secretary 10/02/24 Loren Booth [address] [place] [address] PHC Community Health Worker 10/16/24 11/05/24 Loren Booth [address] [place] [address] Community Health Worker 03/21/25 5 documented as of this encounter Additional Source Comments The information contained in this document represents components of the legal health record. It is not the complete legal health record.[facility]
--- OUTSIDE RECORDS SUMMARY | 2025-05-10 14:43 | XMS_ITS | Encounter Summary ---
Author Organization [facility] Address [address] [facility] [address] [place] [address] Phone Care Team Providers Care Waiter/Waitress Cocktail Lounge Name Role Phone Karina Reis APRN Primary Care Provide r Dionna Gilmore MD Primary Care Provider Marielos Raman RN Unavailable Loren Booth Unavailable Loren Booth Unavailable Encounter Details Date Type Department Care Team (Late st Contact Info) Description 12/21/2022 Procedure Pass [facility], [address] [address] Social History Tobacco Use Types Packs/Day Years [...] on filedocumented in this encounter Care Teams Waiter/Waitress Cocktail Lounge Relationship Specialty Start Date End Date Chato, Karinacherrie Laura APRN [address] [place] [address] PCP - General Pediatrics 01/15/21 01/06/23 Dionna Gilmore MD [address] [place] [address] PCP - General Family Medicine 01/07/23 Marielos Raman RN [address] [place] [phone] PHCM Video Intern 10/02/24 Loren Booth [address] [place] [phone] PHC Community Health Worker 10/16/24 11/05/24 Loren Booth [address] [place] [phone] Community Health Worker 03/21/25 5 documented as of this encounter Additional Source Comments The information contained in this document represents components of the legal health record. It is not the complete legal health record.[facility]
[2025-05-10 15:33] VITALS: BP 101/61; PULSE 85; RESP 18; TEMP 36.9; O2SAT 97
[2025-05-10 16:30] VITALS: BP 101/61; PULSE 85; RESP 18; TEMP 36.9; O2SAT 97
== END 2025-05-10 16:30 | disposition home or self-care (01) ==
PROVIDERS: Emergency Provider Emergency Medicine; PCP Nurse Practitioner Primary Care
DX: G40.909 Epilepsy, unspecified, not intractable, without status epilepticus (principal)
CPT/HCPCS: 36415; 70450; 80048; 80076; 83735; 84702; 85025; 93005; 96365; 96375; 99284; 99285; J0131; J1885; J3360

== ENCOUNTER → 2025-05-10 11:49 | Outpatient (BNV) | payer MEDICAID, SELFPAY | PROVIDERS: Emergency Provider Emergency Medicine; PCP Nurse Practitioner Primary Care; Visit Provider Internal Medicine Cardiovascular Disease | DX: R94.31 Abnormal electrocardiogram [ECG] [EKG] (principal); R55 Syncope and collapse | CPT/HCPCS: 93010 ==

== ENCOUNTER → 2025-05-10 13:27 | Outpatient (BNV) | payer MEDICAID, SELFPAY | PROVIDERS: Emergency Provider Emergency Medicine; PCP Nurse Practitioner Primary Care; Visit Provider Radiology Diagnostic Radiology | DX: R51.9 Headache, unspecified (principal) | CPT/HCPCS: 70450 ==